=== PATIENT | female | born 1965 | race African-American/Black ===

== ENCOUNTER 2016-12-04 10:06 | Emergency (ER) | payer MEDICAID ==
[~2016-12-04 10:06] MED LIST: AMLO10TA2 PO; ATOR20TA PO; CALCTAB25 PO; CLOP75TA28 PO; DOC100C PO; ERGO1CAP6 PO; FAMO-12 PO; FLUO20CA19 PO; GABA300C8 PO; HYOS0.1220 PO; KEP500T PO; LIS20T PO; MET25T PO; ONDA4TAB5 PO; POLY33504 PO; PROM25TA5 PO; TRAM50TA2 PO; ZOLP5TAB5 PO; [UNRECOGNIZED DRUG - CODE] PO
[2016-12-04] MEDS ORDERED: SODIUM CHLORIDE 0.9% 1,000 ML IV ONE (10:15)
[2016-12-04 11:34] LABS: Basophils # (auto) 0.1 uL; Eosinophils # (auto) 0.1 uL; Eosinophils % (auto) 1.6 % (0.0-7.0); Hematocrit 33.7 % (36.0-46.0); Hemoglobin 11.1 g/dL (12.2-16.2); Lymphocytes # (auto) 1.5 uL; Lymphocytes % (auto) 24.7 % (10.0-50.0); Mean Corpuscular Hemoglobin 28.1 pg (28.0-32.0); Mean Corpuscular Volume 85.1 fL (80.0-100.0); Mean Platelet Volume 9.6 fL (7.4-10.4); Monocytes # (auto) 0.5 uL; Monocytes % (auto) 8.1 % (0.0-12.0); Neutrophils % (auto) 63.6 % (37.0-80.0); Platelet Count (auto) 218 10^3/uL (140-450); Red Cell Distribution Width 13.1 % (11.6-16.0); White Blood Cell 6.2 10^3/uL (4.4-10.8)
[2016-12-04] MEDS ORDERED: MORPHINE SULF INJ 2 MG/ML SYRINGE 1ML IV ONE ×2 (11:45→15:45)
[2016-12-04] MEDS ORDERED: ONDANSETRON HCL 4 MG/2 ML VIAL IV ONE ×2 (11:45→15:45)
[2016-12-04 11:49] LABS: Albumin 3.5 g/dL (3.4-5.0); BUN/Creatinine Ratio 15.6; Bilirubin, Total 0.2 mg/dL (0.2-1.0); Calcium 9.2 mg/dL (8.5-10.1); Potassium 3.7 mmol/L (3.5-5.1); Total Protein 7.7 g/dL (6.4-8.2)
[2016-12-04 12:32] LABS: Urine Bilirubin Negative (Negative); Urine Blood Negative /uL (Negative); Urine Color Colorless (Yellow); Urine Glucose Normal (Normal); Urine Ketone Negative (Negative); Urine Nitrite Negative (Negative); Urine RBC 1 /hpf (0 - 4); Urine Squamous Epithelial Cell FEW /hpf (<5); Urine Urobilinogen Normal (Negative); Urine pH 7.5 (5.0-8.0)
[2016-12-04 15:17] VITALS: BP 136/81
[2016-12-04] MEDS ORDERED: LEVETIRACETAM INJ 500 MG in SODIUM CHL 0.9% 100 ML IV ONE (15:45)
[2016-12-04] MEDS ORDERED: MORPHINE SULFATE 4 MG/ML SYRG IV ONE (15:45)
[2016-12-04] MEDS ORDERED: PANTOPRAZOLE 40 MG TAB PO ONE (16:45)
[2016-12-04] MEDS ORDERED: LORazepam 0.5 MG TAB ONE (16:50)
[2016-12-04] MEDS ORDERED: LORazepam 0.5 MG TAB PO ONE (17:00)
== END 2016-12-04 17:47 | disposition home or self-care (01) ==
LOC: EDUNIT# 10:06 → EDBD 10:06 → ER 10:09
DX: R56.9 Unspecified convulsions (principal); E78.5 Hyperlipidemia, unspecified; I10 Essential (primary) hypertension; F12.10 Cannabis abuse, uncomplicated; Z86.73 Personal history of transient ischemic attack (TIA), and cerebral infarction without residual deficits
CPT/HCPCS: 36415; 70450; 71010; 74176; 80053; 80185; 81001; 82542; 84484; 85025; 93005; 96361; 96365; 96375; 96376; 99285; J1953; J2270; J2405; J7030

== ENCOUNTER 2017-03-05 11:03 | Inpatient (IN) | payer MEDICAID ==
[~2017-03-05] VITALS: Ht 160 cm; Wt 55.0 kg
[2017-03-05] MEDS ORDERED: SODIUM CHLORIDE 0.9% 1,000 ML IVB ONE (11:49)
[2017-03-05] MEDS ORDERED: ONDANSETRON HCL 4 MG/2 ML VIAL IV ONE ×2 (12:00→14:00)
[2017-03-05] MEDS ORDERED: MORPHINE SULF INJ 2 MG/ML SYRINGE 1ML IV ONE ×2 (12:00→14:00)
[2017-03-05 13:08] LABS: Basophils # (auto) 0 uL; Eosinophils # (auto) 0 uL; Hematocrit 34.1 % (36.0-46.0); Hemoglobin 11.2 g/dL (12.2-16.2); Lymphocytes # (auto) 0.9 uL; Lymphocytes % (auto) 5.2 % (10.0-50.0); Mean Corpuscular Hemoglobin 27.4 pg (28.0-32.0); Mean Corpuscular Hgb Conc. 32.9 g/dL (32.0-36.0); Mean Corpuscular Volume 83.5 fL (80.0-100.0); Mean Platelet Volume 9.4 fL (7.4-10.4); Monocytes # (auto) 0.4 uL; Monocytes % (auto) 2.7 % (0.0-12.0); Neutrophils # (auto) 15.3 uL; Neutrophils % (auto) 92.1 % (37.0-80.0); Platelet Count (auto) 281 10^3/uL (140-450); Red Cell Distribution Width 14.6 % (11.6-16.0); White Blood Cell 16.6 10^3/uL (4.4-10.8)
[2017-03-05 13:18] LABS: BUN/Creatinine Ratio 16.2; Calcium 9.6 mg/dL (8.5-10.1); Magnesium 2.2 mg/dL (1.6-2.6); Potassium 3.4 mmol/L (3.5-5.1)
[2017-03-05 13:21] LABS: INR 1.01 (0.9-1.15); Prothrombin Time 10.9 sec (9.37-12.3)
[2017-03-05 13:30] LABS: Albumin 4.7 g/dL (3.4-5.0); Bilirubin, Total 0.2 mg/dL (0.2-1.0); Total Protein 9.8 g/dL (6.4-8.2)
[2017-03-05 13:41] LABS: Lactic Acid w/Reflex 2.2 mmol/L (0.4-2.0)
[2017-03-05] MEDS ORDERED: ONDANSETRON HCL 4 MG/2 ML VIAL ONE (13:45)
[2017-03-05 13:55] LABS: REFLEX LACTIC ACID YES OR NO YES
[2017-03-05] MEDS ORDERED: MORPHINE SULFATE 4 MG/ML SYRG IV ONE (14:00)
[2017-03-05 14:27] LABS: Urine Bilirubin Negative (Negative); Urine Blood TRACE /uL (Negative); Urine Glucose Normal (Normal); Urine Ketone Negative (Negative); Urine Nitrite Negative (Negative); Urine RBC 5 /hpf (0 - 4); Urine Squamous Epithelial Cell FEW /hpf (<5); Urine Urobilinogen Normal (Negative)
[2017-03-05 14:28] LABS: Urine Color Straw (Yellow)
[2017-03-05] MEDS ORDERED: cefTRIAXone 1GM/50ML D5W 50 ML IV ONE (14:30)
[2017-03-05] MEDS ORDERED: ONDANSETRON HCL 4 MG/2 ML VIAL IV PRN (14:45)
[2017-03-05] MEDS ORDERED: PANTOPRAZOLE SODIUM 40 MG/10 ML VIAL IV ONE (14:45)
[2017-03-05] MEDS: SOD CHL 0.45% WITH 20MEQ KCL 1,000 ML IV SCH (14:56)
[2017-03-05] MEDS ORDERED: metroNIDAZOLE 500MG/100ML 100 ML IV ONE (15:00)
[2017-03-05] MEDS ORDERED: LISINOPRIL 10 MG TAB PO ONE (15:00)
[2017-03-05] MEDS ORDERED: LEVETIRACETAM 500 MG TAB PO ONE (15:00)
[2017-03-05] MEDS ORDERED: FLUoxetine HCL 20 MG CAP PO ONE (15:00)
[2017-03-05] MEDS ORDERED: GABAPENTIN 300 MG CAP PO ONE (15:00)
[2017-03-05] MEDS ORDERED: ASPirin 81 mg TAB PO ONE (15:00)
[2017-03-05 17:00] VITALS: BP 169/97
[2017-03-05] MEDS: MORPHINE SULF INJ 2 MG/ML SYRINGE 1ML IV PRN ×2 (17:01→21:11)
[2017-03-05] MEDS: HYDROcodone-ACET 5/325MG TAB PO PRN (18:36)
[2017-03-05] MEDS: ATORVASTATIN 20 MG TAB PO SCH (20:30)
[2017-03-05] MEDS: GABAPENTIN 300 MG CAP PO SCH (20:30)
[2017-03-05] MEDS: LEVETIRACETAM 500 MG TAB PO SCH (20:30)
[2017-03-05] MEDS: metroNIDAZOLE 500MG/100ML 100 ML IV SCH (20:31)
[2017-03-05] MEDS: METOPROLOL TARTRATE 25 MG TAB PO SCH (20:32)
[2017-03-05 22:35] VITALS: BP 160/98
[2017-03-06] MEDS: MORPHINE SULF INJ 2 MG/ML SYRINGE 1ML IV PRN ×5 (01:42→22:30)
[2017-03-06] MEDS: HYDROcodone-ACET 5/325MG TAB PO PRN ×3 (03:50→16:38)
[2017-03-06] MEDS: GABAPENTIN 300 MG CAP PO SCH ×3 (05:40→21:38)
[2017-03-06] MEDS: metroNIDAZOLE 500MG/100ML 100 ML IV SCH ×3 (05:40→21:39)
[2017-03-06] MEDS: SOD CHL 0.45% WITH 20MEQ KCL 1,000 ML IV SCH ×2 (05:40→17:52)
[2017-03-06 06:05] VITALS: BP 150/89
[2017-03-06 07:04] LABS: Basophils # (auto) 0 uL; Basophils % (auto) 0.1 % (0.0-2.0); Eosinophils # (auto) 0 uL; Eosinophils % (auto) 0.1 % (0.0-7.0); Hematocrit 35.9 % (36.0-46.0); Hemoglobin 11.9 g/dL (12.2-16.2); Lymphocytes # (auto) 1.8 uL; Lymphocytes % (auto) 13.2 % (10.0-50.0); Mean Corpuscular Hemoglobin 27.7 pg (28.0-32.0); Mean Corpuscular Hgb Conc. 33.3 g/dL (32.0-36.0); Mean Corpuscular Volume 83.3 fL (80.0-100.0); Mean Platelet Volume 10.1 fL (7.4-10.4); Monocytes # (auto) 0.5 uL; Monocytes % (auto) 3.3 % (0.0-12.0); Neutrophils # (auto) 11.5 uL; Neutrophils % (auto) 83.3 % (37.0-80.0); Platelet Count (auto) 264 10^3/uL (140-450); Red Cell Distribution Width 14.2 % (11.6-16.0); White Blood Cell 13.8 10^3/uL (4.4-10.8)
[2017-03-06 07:20] LABS: BUN/Creatinine Ratio 14.9; Potassium 3.6 mmol/L (3.5-5.1)
[2017-03-06 08:54] VITALS: BP 148/91
[2017-03-06] MEDS: PANTOPRAZOLE SODIUM 40 MG/10 ML VIAL IV SCH (10:23)
[2017-03-06] MEDS: LORazepam 2MG/ML-1ML VIAL IV PRN (10:23)
[2017-03-06] MEDS: cefTRIAXone 1GM/50ML D5W 50 ML IV SCH (10:23)
[2017-03-06] MEDS: FLUoxetine HCL 20 MG CAP PO SCH (10:24)
[2017-03-06] MEDS: LISINOPRIL 10 MG TAB PO SCH (10:24)
[2017-03-06] MEDS: METOPROLOL TARTRATE 25 MG TAB PO SCH ×2 (10:24→21:39)
[2017-03-06] MEDS: LEVETIRACETAM 500 MG TAB PO SCH ×2 (10:24→21:38)
[2017-03-06] MEDS: ASPirin 81 mg TAB PO SCH (10:25)
[2017-03-06 13:00] VITALS: BP 107/71
[2017-03-06] MEDS ORDERED: HYOSCYAMINE SULF 0.125 MG TAB PO PRN (16:00)
[2017-03-06 17:00] VITALS: BP 151/104
[2017-03-06] MEDS: ATORVASTATIN 20 MG TAB PO SCH (21:38)
[2017-03-06 21:45] VITALS: BP 116/73
[2017-03-07] MEDS: MORPHINE SULF INJ 2 MG/ML SYRINGE 1ML IV PRN ×3 (02:35→14:11)
[2017-03-07 05:17] VITALS: BP 109/65
[2017-03-07] MEDS: GABAPENTIN 300 MG CAP PO SCH ×2 (05:45→14:00)
[2017-03-07] MEDS: HYDROcodone-ACET 5/325MG TAB PO PRN (05:45)
[2017-03-07] MEDS: metroNIDAZOLE 500MG/100ML 100 ML IV SCH ×2 (05:45→14:00)
[2017-03-07] MEDS: SOD CHL 0.45% WITH 20MEQ KCL 1,000 ML IV SCH (06:56)
[2017-03-07 07:02] LABS: Basophils # (auto) 0 uL; Basophils % (auto) 0.4 % (0.0-2.0); Eosinophils # (auto) 0 uL; Eosinophils % (auto) 0.4 % (0.0-7.0); Hematocrit 32.7 % (36.0-46.0); Hemoglobin 10.8 g/dL (12.2-16.2); Lymphocytes # (auto) 3.3 uL; Lymphocytes % (auto) 36.3 % (10.0-50.0); Mean Corpuscular Hemoglobin 27.5 pg (28.0-32.0); Mean Corpuscular Hgb Conc. 33.1 g/dL (32.0-36.0); Mean Corpuscular Volume 83.2 fL (80.0-100.0); Mean Platelet Volume 10.4 fL (7.4-10.4); Monocytes # (auto) 0.6 uL; Monocytes % (auto) 6.3 % (0.0-12.0); Neutrophils # (auto) 5.2 uL; Neutrophils % (auto) 56.6 % (37.0-80.0); Platelet Count (auto) 228 10^3/uL (140-450); Red Cell Distribution Width 13.9 % (11.6-16.0); White Blood Cell 9.2 10^3/uL (4.4-10.8)
[2017-03-07 07:36] LABS: Albumin 3.8 g/dL (3.4-5.0); BUN/Creatinine Ratio 18.4; Bilirubin, Total 0.5 mg/dL (0.2-1.0); Calcium 8.5 mg/dL (8.5-10.1); Potassium 3.6 mmol/L (3.5-5.1)
[2017-03-07] MEDS: LORazepam 2MG/ML-1ML VIAL IV PRN (08:02)
[2017-03-07 09:00] VITALS: BP 93/61
[2017-03-07] MEDS: LISINOPRIL 10 MG TAB PO SCH (10:00)
[2017-03-07] MEDS: METOPROLOL TARTRATE 25 MG TAB PO SCH (10:00)
[2017-03-07] MEDS: LEVETIRACETAM 500 MG TAB PO SCH (10:09)
[2017-03-07] MEDS: FLUoxetine HCL 20 MG CAP PO SCH (10:09)
[2017-03-07] MEDS: cefTRIAXone 1GM/50ML D5W 50 ML IV SCH (10:10)
[2017-03-07] MEDS: ASPirin 81 mg TAB PO SCH (10:11)
[2017-03-07] MEDS: PANTOPRAZOLE SODIUM 40 MG/10 ML VIAL IV SCH (10:11)
[2017-03-07 14:30] VITALS: BP 93/61
== END 2017-03-07 15:30 | disposition home or self-care (01) | DRG 248 ==
LOC: EDBD 11:03 → ER 11:05 → OVERFLOW 11:06 → TELE-E-ADS 15:44 → EAST 16:49
PROVIDERS: ADMIT Internal Medicine; ATTEND Internal Medicine
DX: A04.9 Bacterial intestinal infection, unspecified (principal); E87.0 Hyperosmolality and hypernatremia; M32.9 Systemic lupus erythematosus, unspecified; I69.351 Hemiplegia and hemiparesis following cerebral infarction affecting right dominant side; N30.00 Acute cystitis without hematuria; F41.9 Anxiety disorder, unspecified; E78.5 Hyperlipidemia, unspecified; F32.9 Major depressive disorder, single episode, unspecified; G89.4 Chronic pain syndrome; F12.90 Cannabis use, unspecified, uncomplicated; D64.9 Anemia, unspecified; I10 Essential (primary) hypertension; Z82.3 Family history of stroke; Z82.49 Family history of ischemic heart disease and other diseases of the circulatory system; Z83.3 Family history of diabetes mellitus; Z79.899 Other long term (current) drug therapy
CPT/HCPCS: 36415; 51702; 71010; 74176; 80048; 80053; 81001; 82150; 83605; 83690; 83735; 85025; 85610; 85730; 87040; 87081; 93005; 94761; 96361; 96365; 96367; 96375; 96376; C9113; J0696; J2405; J3490

== ENCOUNTER 2017-12-20 17:22 | Emergency (ER) | payer MEDICAID ==
[~2017-12-20] VITALS: Ht 167.6 cm; Wt 59.0 kg
[~2017-12-20 17:22] MED LIST changes: +GABA300C10 PO; -GABA300C8 PO; -HYOS0.1220 PO; -[UNRECOGNIZED DRUG - CODE] PO
[2017-12-20 18:45] LABS: Basophils # (auto) 0.1 uL; Eosinophils # (auto) 0 uL; Hemoglobin 11.9 g/dL (12.2-16.2); Monocytes # (auto) 0.3 uL; Red Cell Distribution Width 13.8 % (11.8-14.3)
[2017-12-20 19:01] LABS: Albumin 3.8 g/dL (3.4-5.0); BUN/Creatinine Ratio 10.8; Calcium 8.8 mg/dL (8.5-10.1); Potassium 3.4 mmol/L (3.5-5.1)
[2017-12-20 19:02] LABS: Basophils % (auto) 1.2 % (0.0-2.0); Eosinophils % (auto) 0.7 % (0.0-7.0); Hematocrit 35.9 % (36.0-46.0); Lymphocytes # (auto) 1.8 uL; Lymphocytes % (auto) 39.5 % (10.0-50.0); Mean Corpuscular Hemoglobin 27.8 pg (28.0-32.0); Mean Corpuscular Hgb Conc. 33.2 g/dL (32.0-36.0); Mean Corpuscular Volume 83.7 fL (80.0-100.0); Monocytes % (auto) 5.9 % (0.0-12.0); Neutrophils # (auto) 2.3 uL; Neutrophils % (auto) 52.7 % (37.0-80.0); Nucleated Red Blood Cells % 0.6 %; Platelet Count (auto) 208 10^3/uL (140-450); Red Blood Cells 4.29 10^6/uL (4.0-5.20); White Blood Cell 4.4 10^3/uL (4.4-10.8)
[2017-12-20 19:04] LABS: Bilirubin, Total 0.2 mg/dL (0.2-1.0); Total Protein 8.5 g/dL (6.4-8.2)
[2017-12-20] MEDS ORDERED: SODIUM CHLORIDE 0.9% 1,000 ML IV ONE (19:45)
[2017-12-20] MEDS ORDERED: ONDANSETRON HCL 4 MG/2 ML VIAL IV ONE (19:45)
[2017-12-20] MEDS ORDERED: MORPHINE SULFATE 10 MG/ML INJ 1ML SDV IV ONE (19:45)
[2017-12-20 22:49] VITALS: BP 135/94
[2018-03-10] MEDS ORDERED: MORP30TA PO (09:56)
[2018-03-10] MEDS ORDERED: CLOP75TA41 PO (09:56)
[2018-03-10] MEDS ORDERED: PROM25TA5 PO (09:56)
[2018-03-10] MEDS ORDERED: GABA300C10 PO (09:56)
[2018-03-10] MEDS ORDERED: ATOR40TA52 PO (09:56)
[2018-03-10] MEDS ORDERED: KEP500T PO (09:56)
[2018-03-10] MEDS ORDERED: FLUO20CA19 PO (09:56)
[2018-03-10] MEDS ORDERED: AMLO5TAB2 PO (09:56)
== END 2017-12-20 23:41 | disposition home or self-care (01) ==
LOC: ER 17:22 → EDBD 17:22 → ER 23:41
DX: K29.70 Gastritis, unspecified, without bleeding (principal); I10 Essential (primary) hypertension; E78.00 Pure hypercholesterolemia, unspecified; F12.10 Cannabis abuse, uncomplicated; Z79.899 Other long term (current) drug therapy
CPT/HCPCS: 36415; 74176; 80053; 82150; 83690; 85025; 93005; 96361; 96374; 96375; 99285; J2270; J2405; J7030

== ENCOUNTER 2018-05-02 20:10 | Inpatient (IN) | payer MEDICAID ==
[~2018-05-02] VITALS: Ht 175.3 cm; Wt 62.1 kg
[~2018-05-02 20:10] MED LIST changes: -AMLO10TA2 PO; +AMLO5TAB2 PO; -ATOR20TA PO; +ATOR40TA52 PO; -CALCTAB25 PO; -CLOP75TA28 PO; +CLOP75TA41 PO; -DOC100C PO; -ERGO1CAP6 PO; -FAMO-12 PO; -LIS20T PO; -MET25T PO; +MORP30TA PO; -ONDA4TAB5 PO; -POLY33504 PO; -TRAM50TA2 PO; -ZOLP5TAB5 PO
[2018-05-02] MEDS ORDERED: KETOROLAC TROMETH 30 MG/ML 1ML VIAL IV ONE (21:00)
[2018-05-02] MEDS ORDERED: ONDANSETRON HCL 4 MG/2 ML VIAL ONE (21:00)
[2018-05-02] MEDS ORDERED: ONDANSETRON HCL 4 MG/2 ML VIAL IV ONE (21:00)
[2018-05-02] MEDS ORDERED: SODIUM CHLORIDE 0.9% 1,000 ML IV ONE (21:15)
[2018-05-02 21:16] LABS: Basophils # (auto) 0.1 uL; Basophils % (auto) 0.7 % (0.0-2.0); Eosinophils # (auto) 0.1 uL; Eosinophils % (auto) 0.7 % (0.0-7.0); Hematocrit 37.6 % (36.0-46.0); Hemoglobin 12.6 g/dL (12.2-16.2); Lymphocytes # (auto) 3.2 uL; Lymphocytes % (auto) 17.4 % (10.0-50.0); Mean Corpuscular Hgb Conc. 33.4 g/dL (32.0-36.0); Mean Corpuscular Volume 83.8 fL (80.0-100.0); Monocytes # (auto) 0.7 uL; Monocytes % (auto) 3.6 % (0.0-12.0); Neutrophils # (auto) 14.4 uL; Neutrophils % (auto) 77.6 % (37.0-80.0); Platelet Count (auto) 255 10^3/uL (140-450); Red Blood Cells 4.49 10^6/uL (4.0-5.20); White Blood Cell 18.6 10^3/uL (4.4-10.8)
[2018-05-02 21:31] LABS: Albumin 4.1 g/dL (3.4-5.0); BUN/Creatinine Ratio 10.2; Calcium 8.9 mg/dL (8.5-10.1); Potassium 3.7 mmol/L (3.5-5.1)
[2018-05-02 21:33] LABS: Bilirubin, Total 0.2 mg/dL (0.2-1.0); Total Protein 9.2 g/dL (6.4-8.2)
[2018-05-02] MEDS ORDERED: LORazepam 0.5 MG TAB PO ONE (21:45)
[2018-05-02] MEDS ORDERED: LORazepam 2MG/ML-1ML VIAL IV ONE (22:00)
[2018-05-02] MEDS ORDERED: LEVE500T22 PO (22:26)
[2018-05-02] MEDS ORDERED: CLOP75TA41 PO (22:26)
[2018-05-02] MEDS ORDERED: AMLO5TAB2 PO (22:26)
[2018-05-02] MEDS ORDERED: CEPH250C2 PO (22:26)
[2018-05-02 22:51] LABS: Urine Bacteria NONE SEEN /hpf (None Seen); Urine Blood Negative /uL (Negative); Urine Specific Gravity 1.009 (1.001-1.035); Urine WBC 1 /hpf (0 - 5)
[2018-05-02] MEDS ORDERED: metroNIDAZOLE 500MG/100ML 100 ML IV ONE (23:30)
[2018-05-02] MEDS ORDERED: CIPROFLOXACIN 400MG/200ML 200 ML IV ONE (23:30)
[2018-05-03] VITALS (9 sets, daily range): BP systolic 140–166; BP diastolic 0–105
[2018-05-03] MEDS ORDERED: LORazepam 2MG/ML-1ML VIAL IV ONE (01:00)
[2018-05-03] MEDS ORDERED: ACETAMINOPHEN 500 MG TAB PO PRN (02:15)
[2018-05-03] MEDS: HYDROcodone-ACET 5/325MG TAB PO PRN ×3 (03:44→18:42)
[2018-05-03] MEDS: GABAPENTIN 300 MG CAP PO SCH ×3 (05:53→21:43)
[2018-05-03] MEDS: MORPHINE SULF INJ 2 MG/ML SYRINGE 1ML IV PRN ×2 (06:03→09:44)
[2018-05-03] MEDS: ONDANSETRON HCL 4 MG/2 ML VIAL IV PRN ×2 (07:55→21:23)
[2018-05-03 08:31] LABS: Basophils # (auto) 0 uL; Basophils % (auto) 0.2 % (0.0-2.0); Eosinophils # (auto) 0 uL; Hematocrit 37.4 % (36.0-46.0); Hemoglobin 12.5 g/dL (12.2-16.2); Lymphocytes # (auto) 1.3 uL; Lymphocytes % (auto) 10.8 % (10.0-50.0); Mean Corpuscular Hgb Conc. 33.4 g/dL (32.0-36.0); Mean Corpuscular Volume 83.9 fL (80.0-100.0); Monocytes # (auto) 0.2 uL; Monocytes % (auto) 1.6 % (0.0-12.0); Neutrophils # (auto) 10.3 uL; Neutrophils % (auto) 87.4 % (37.0-80.0); Nucleated Red Blood Cells % 0.1 %; Platelet Count (auto) 215 10^3/uL (140-450); Red Blood Cells 4.45 10^6/uL (4.0-5.20); Red Cell Distribution Width 13.9 % (11.8-14.3); White Blood Cell 11.8 10^3/uL (4.4-10.8)
[2018-05-03 09:02] LABS: Albumin 4.5 g/dL (3.4-5.0); BUN/Creatinine Ratio 10.1; Bilirubin, Total 0.3 mg/dL (0.2-1.0); Calcium 9.1 mg/dL (8.5-10.1); Potassium 3.3 mmol/L (3.5-5.1); Total Protein 8.9 g/dL (6.4-8.2)
[2018-05-03] MEDS: amLODIPine BESYLATE 5 MG TAB PO SCH (09:45)
[2018-05-03] MEDS: ASPirin 81 mg TAB PO SCH (11:04)
[2018-05-03] MEDS: LEVETIRACETAM 500 MG/5ML ORAL SOLN UD PO SCH ×2 (11:05→21:43)
[2018-05-03] MEDS: HYDROmorphone HCL 2 MG/ML VL IV PRN ×3 (13:30→21:23)
[2018-05-03] MEDS: metroNIDAZOLE 500 MG TAB PO SCH ×2 (14:16→21:43)
[2018-05-03] MEDS ORDERED: CARISOPRODOL 350 MG TAB PO ONE (16:15)
[2018-05-03] MEDS: ATORVASTATIN 20 MG TAB PO SCH (21:43)
[2018-05-04] MEDS: HYDROcodone-ACET 5/325MG TAB PO PRN ×3 (00:13→19:38)
[2018-05-04] MEDS: HYDROmorphone HCL 2 MG/ML VL IV PRN ×5 (04:50→21:26)
[2018-05-04 05:03] VITALS: BP 141/103
[2018-05-04] MEDS: GABAPENTIN 300 MG CAP PO SCH ×3 (05:53→21:26)
[2018-05-04] MEDS: metroNIDAZOLE 500 MG TAB PO SCH (05:53)
[2018-05-04 05:56] LABS: Basophils # (auto) 0.1 uL; Basophils % (auto) 0.4 % (0.0-2.0); Eosinophils # (auto) 0 uL; Eosinophils % (auto) 0.1 % (0.0-7.0); Hemoglobin 14.5 g/dL (12.2-16.2); Lymphocytes # (auto) 3.5 uL; Lymphocytes % (auto) 21.2 % (10.0-50.0); Mean Corpuscular Hemoglobin 28.1 pg (28.0-32.0); Mean Corpuscular Hgb Conc. 33.8 g/dL (32.0-36.0); Mean Corpuscular Volume 83.2 fL (80.0-100.0); Monocytes # (auto) 0.9 uL; Monocytes % (auto) 5.4 % (0.0-12.0); Neutrophils # (auto) 11.9 uL; Neutrophils % (auto) 72.9 % (37.0-80.0); Nucleated Red Blood Cells % 0.6 %; Platelet Count (auto) 276 10^3/uL (140-450); Red Blood Cells 5.17 10^6/uL (4.0-5.20); White Blood Cell 16.4 10^3/uL (4.4-10.8)
[2018-05-04 06:20] LABS: BUN/Creatinine Ratio 13.1; Calcium 9.6 mg/dL (8.5-10.1)
[2018-05-04 06:24] LABS: Potassium 2.8 mmol/L (3.5-5.1)
[2018-05-04] MEDS: ONDANSETRON HCL 4 MG/2 ML VIAL IV PRN ×4 (09:09→21:26)
[2018-05-04] MEDS: LEVETIRACETAM 500 MG/5ML ORAL SOLN UD PO SCH ×2 (09:09→21:25)
[2018-05-04] MEDS: ASPirin 81 mg TAB PO SCH (09:10)
[2018-05-04] MEDS: amLODIPine BESYLATE 5 MG TAB PO SCH (09:14)
[2018-05-04 12:27] VITALS: BP 116/85
[2018-05-04] MEDS ORDERED: POTASSIUM CHL 20 Meq TABLET PO ONE (12:30)
[2018-05-04 17:44] VITALS: BP 107/80
[2018-05-04] MEDS: POTASSIUM CHL 20 Meq TABLET PO SCH (21:25)
[2018-05-04] MEDS: ATORVASTATIN 20 MG TAB PO SCH (21:25)
[2018-05-04 22:00] VITALS: BP 150/103
[2018-05-05] MEDS: HYDROmorphone HCL 2 MG/ML VL IV PRN ×6 (01:33→21:13)
[2018-05-05] MEDS: ONDANSETRON HCL 4 MG/2 ML VIAL IV PRN ×4 (01:33→21:13)
[2018-05-05] MEDS: GABAPENTIN 300 MG CAP PO SCH ×3 (05:25→21:10)
[2018-05-05 05:46] VITALS: BP 109/79
[2018-05-05 06:02] LABS: Basophils # (auto) 0.1 uL; Basophils % (auto) 0.6 % (0.0-2.0); Eosinophils # (auto) 0 uL; Eosinophils % (auto) 0.2 % (0.0-7.0); Hematocrit 38.4 % (36.0-46.0); Hemoglobin 12.8 g/dL (12.2-16.2); Lymphocytes # (auto) 4.7 uL; Lymphocytes % (auto) 36.2 % (10.0-50.0); Mean Corpuscular Hemoglobin 27.9 pg (28.0-32.0); Mean Corpuscular Hgb Conc. 33.2 g/dL (32.0-36.0); Mean Corpuscular Volume 84.1 fL (80.0-100.0); Monocytes # (auto) 0.6 uL; Monocytes % (auto) 4.5 % (0.0-12.0); Neutrophils # (auto) 7.6 uL; Neutrophils % (auto) 58.5 % (37.0-80.0); Nucleated Red Blood Cells % 0.1 %; Platelet Count (auto) 221 10^3/uL (140-450); Red Blood Cells 4.57 10^6/uL (4.0-5.20); Red Cell Distribution Width 13.8 % (11.8-14.3); White Blood Cell 12.9 10^3/uL (4.4-10.8)
[2018-05-05 06:21] LABS: Calcium 9.1 mg/dL (8.5-10.1); Potassium 3.7 mmol/L (3.5-5.1)
[2018-05-05 06:25] LABS: BUN/Creatinine Ratio 14.5
[2018-05-05 08:00] VITALS: BP 96/63
[2018-05-05 08:53] VITALS: BP 96/63
[2018-05-05] MEDS: ASPirin 81 mg TAB PO SCH (09:43)
[2018-05-05] MEDS: LEVETIRACETAM 500 MG/5ML ORAL SOLN UD PO SCH ×2 (09:44→21:09)
[2018-05-05] MEDS: POTASSIUM CHL 20 Meq TABLET PO SCH ×2 (09:44→21:10)
[2018-05-05] MEDS: amLODIPine BESYLATE 5 MG TAB PO SCH (09:45)
[2018-05-05] MEDS: LEVOFLOXACIN 500MG 100 ML IV SCH (11:31)
[2018-05-05] MEDS: SODIUM CHLORIDE 0.9% 1,000 ML IV SCH ×2 (11:31→18:00)
[2018-05-05] MEDS: HYDROcodone-ACET 5/325MG TAB PO PRN ×3 (12:51→22:56)
[2018-05-05 13:00] VITALS: BP 134/89
[2018-05-05] MEDS: LORazepam 2MG/ML-1ML VIAL IV PRN (16:03)
[2018-05-05 17:00] VITALS: BP 115/80
[2018-05-05] MEDS: ATORVASTATIN 20 MG TAB PO SCH (21:10)
[2018-05-05 21:36] VITALS: BP 108/76
[2018-05-06] MEDS: SODIUM CHLORIDE 0.9% 1,000 ML IV SCH (01:02)
[2018-05-06] MEDS: ONDANSETRON HCL 4 MG/2 ML VIAL IV PRN ×2 (01:02→05:00)
[2018-05-06] MEDS: HYDROmorphone HCL 2 MG/ML VL IV PRN ×4 (01:02→14:00)
[2018-05-06] MEDS: HYDROcodone-ACET 5/325MG TAB PO PRN ×6 (03:11→23:39)
[2018-05-06 05:00] VITALS: BP 103/76
[2018-05-06] MEDS: GABAPENTIN 300 MG CAP PO SCH ×3 (05:00→21:25)
[2018-05-06 05:38] LABS: Basophils # (auto) 0.1 uL; Eosinophils # (auto) 0.1 uL; Hematocrit 34.1 % (36.0-46.0); Hemoglobin 11.3 g/dL (12.2-16.2); Lymphocytes # (auto) 3.4 uL; Lymphocytes % (auto) 46.2 % (10.0-50.0); Mean Corpuscular Hemoglobin 28.1 pg (28.0-32.0); Mean Corpuscular Hgb Conc. 33.3 g/dL (32.0-36.0); Mean Corpuscular Volume 84.4 fL (80.0-100.0); Monocytes # (auto) 0.5 uL; Monocytes % (auto) 7.3 % (0.0-12.0); Neutrophils # (auto) 3.2 uL; Neutrophils % (auto) 43.5 % (37.0-80.0); Nucleated Red Blood Cells % 0.2 %; Platelet Count (auto) 180 10^3/uL (140-450); Red Blood Cells 4.04 10^6/uL (4.0-5.20); Red Cell Distribution Width 13.8 % (11.8-14.3); White Blood Cell 7.3 10^3/uL (4.4-10.8)
[2018-05-06 06:24] LABS: BUN/Creatinine Ratio 18.8; Calcium 8.2 mg/dL (8.5-10.1); Potassium 4.3 mmol/L (3.5-5.1)
[2018-05-06 07:45] VITALS: BP 109/81
[2018-05-06 09:00] VITALS: BP 109/81
[2018-05-06] MEDS: LEVOFLOXACIN 500MG 100 ML IV SCH (10:02)
[2018-05-06] MEDS: ASPirin 81 mg TAB PO SCH (10:03)
[2018-05-06] MEDS: LEVETIRACETAM 500 MG/5ML ORAL SOLN UD PO SCH ×2 (10:03→21:25)
[2018-05-06] MEDS: amLODIPine BESYLATE 5 MG TAB PO SCH (10:07)
[2018-05-06] MEDS: SOD CHL 0.45% 1,000 ML IV SCH ×2 (11:54→20:36)
[2018-05-06 12:24] VITALS: BP 116/75
[2018-05-06 17:00] VITALS: BP 110/78
[2018-05-06] MEDS: MORPHINE SULF INJ 2 MG/ML SYRINGE 1ML IV PRN ×2 (18:01→21:25)
[2018-05-06] MEDS: LORazepam 2MG/ML-1ML VIAL IV PRN (19:51)
[2018-05-06 20:00] VITALS: BP 114/75
[2018-05-06] MEDS ORDERED: LORazepam 0.5 MG TAB PO PRN (21:15)
[2018-05-06] MEDS: ATORVASTATIN 20 MG TAB PO SCH (21:25)
[2018-05-07] MEDS: MORPHINE SULF INJ 2 MG/ML SYRINGE 1ML IV PRN ×3 (01:09→09:27)
[2018-05-07] MEDS: HYDROcodone-ACET 5/325MG TAB PO PRN ×2 (03:33→07:58)
[2018-05-07 04:48] VITALS: BP 117/87
[2018-05-07] MEDS: GABAPENTIN 300 MG CAP PO SCH (05:02)
[2018-05-07 05:54] LABS: Basophils # (auto) 0.1 uL; Basophils % (auto) 1.3 % (0.0-2.0); Eosinophils # (auto) 0.2 uL; Eosinophils % (auto) 4.1 % (0.0-7.0); Hematocrit 33.1 % (36.0-46.0); Hemoglobin 11.1 g/dL (12.2-16.2); Lymphocytes # (auto) 2.6 uL; Lymphocytes % (auto) 45.2 % (10.0-50.0); Mean Corpuscular Hemoglobin 28.8 pg (28.0-32.0); Mean Corpuscular Hgb Conc. 33.4 g/dL (32.0-36.0); Mean Corpuscular Volume 86.2 fL (80.0-100.0); Monocytes # (auto) 0.5 uL; Neutrophils # (auto) 2.4 uL; Neutrophils % (auto) 41.4 % (37.0-80.0); Nucleated Red Blood Cells % 0.2 %; Platelet Count (auto) 178 10^3/uL (140-450); Red Blood Cells 3.84 10^6/uL (4.0-5.20); Red Cell Distribution Width 13.9 % (11.8-14.3); White Blood Cell 5.8 10^3/uL (4.4-10.8)
[2018-05-07 06:16] LABS: BUN/Creatinine Ratio 12.9; Calcium 8.6 mg/dL (8.5-10.1)
[2018-05-07] MEDS: SOD CHL 0.45% 1,000 ML IV SCH (06:19)
[2018-05-07] MEDS: LEVOFLOXACIN 500MG 100 ML IV SCH (07:58)
[2018-05-07] MEDS: ASPirin 81 mg TAB PO SCH (07:59)
[2018-05-07 09:14] VITALS: BP 115/74
[2018-05-07] MEDS: amLODIPine BESYLATE 5 MG TAB PO SCH (10:00)
[2018-05-07] MEDS: LEVETIRACETAM 500 MG/5ML ORAL SOLN UD PO SCH (11:02)
[2018-05-07 11:23] VITALS: BP 115/74
== END 2018-05-07 12:36 | disposition home or self-care (01) | DRG 254 ==
LOC: EDBD 20:10 → ER 20:17 → TELE 20:18 → TELE-EAST 05-03 03:00
PROVIDERS: ADMIT Nurse Practitioner Family; ATTEND Internal Medicine
DX: I88.0 Nonspecific mesenteric lymphadenitis (principal); N17.0 Acute kidney failure with tubular necrosis; K65.4 Sclerosing mesenteritis; G40.909 Epilepsy, unspecified, not intractable, without status epilepticus; E87.6 Hypokalemia; I12.9 Hypertensive chronic kidney disease with stage 1 through stage 4 chronic kidney disease, or unspecified chronic kidney disease; K29.70 Gastritis, unspecified, without bleeding; E78.5 Hyperlipidemia, unspecified; F17.210 Nicotine dependence, cigarettes, uncomplicated; F31.9 Bipolar disorder, unspecified; F41.9 Anxiety disorder, unspecified; K59.00 Constipation, unspecified; N18.9 Chronic kidney disease, unspecified; E78.00 Pure hypercholesterolemia, unspecified; G89.4 Chronic pain syndrome; I25.10 Atherosclerotic heart disease of native coronary artery without angina pectoris; I25.2 Old myocardial infarction; I69.351 Hemiplegia and hemiparesis following cerebral infarction affecting right dominant side; Z79.82 Long term (current) use of aspirin; Z79.899 Other long term (current) drug therapy; Z80.3 Family history of malignant neoplasm of breast; Z82.3 Family history of stroke; Z82.49 Family history of ischemic heart disease and other diseases of the circulatory system; Z83.3 Family history of diabetes mellitus; Z87.442 Personal history of urinary calculi; Z87.440 Personal history of urinary (tract) infections
CPT/HCPCS: 36415; 70450; 74176; 80048; 80053; 81001; 82270; 82542; 83036; 83690; 85025; 87493; 93005; 95819; 96361; 96365; 96375; J1885; J1956; J2405; J3490

== ENCOUNTER 2018-11-28 10:39 | Emergency (ER) | payer MEDICAID ==
[~2018-11-28] VITALS: Ht 167.6 cm; Wt 68.0 kg
[~2018-11-28 10:39] MED LIST changes: +AMLO5TAB13 PO; -AMLO5TAB2 PO; +CEPH250C2 PO; +LEVE500T22 PO
[2018-11-28] MEDS ORDERED: ONDANSETRON HCL 4 MG/2 ML VIAL IV ONE (11:00)
[2018-11-28] MEDS ORDERED: LORazepam 2MG/ML-1ML VIAL IV ONE (11:00)
[2018-11-28] MEDS ORDERED: LEVETIRACETAM INJ 1,000 MG in D5W 5% 100 ML IV ONE (11:00)
[2018-11-28 11:47] LABS: Basophils # (auto) 0.1 uL; Eosinophils # (auto) 0.1 uL; Eosinophils % (auto) 1.4 % (0.0-7.0); Hematocrit 38.7 % (36.0-46.0); Hemoglobin 12.7 g/dL (12.2-16.2); Lymphocytes # (auto) 2.1 uL; Lymphocytes % (auto) 34.6 % (10.0-50.0); Mean Corpuscular Hemoglobin 28.4 pg (28.0-32.0); Mean Corpuscular Hgb Conc. 32.8 g/dL (32.0-36.0); Mean Corpuscular Volume 86.5 fL (80.0-100.0); Monocytes # (auto) 0.4 uL; Monocytes % (auto) 6.9 % (0.0-12.0); Neutrophils # (auto) 3.5 uL; Neutrophils % (auto) 56.1 % (37.0-80.0); Nucleated Red Blood Cells % 0.1 %; Platelet Count (auto) 224 10^3/uL (140-450); Red Blood Cells 4.48 10^6/uL (4.0-5.20); Red Cell Distribution Width 13.4 % (11.8-14.3); White Blood Cell 6.2 10^3/uL (4.4-10.8)
[2018-11-28 12:08] LABS: Albumin 4.2 g/dL (3.4-5.0); BUN/Creatinine Ratio 12.3; Calcium 8.7 mg/dL (8.5-10.1); Potassium 3.3 mmol/L (3.5-5.1)
[2018-11-28 12:10] LABS: Bilirubin, Total 0.4 mg/dL (0.2-1.0); Total Protein 8.6 g/dL (6.4-8.2)
[2018-11-28] MEDS ORDERED: MORPHINE SULFATE 4 MG/ML SYR/VIAL IV ONE (12:30)
[2018-11-28 15:56] VITALS: BP 141/87
== END 2018-11-28 16:27 | disposition home or self-care (01) ==
LOC: ER 10:39 → EDBD 10:39 → ER 16:27
DX: R56.9 Unspecified convulsions (principal); I12.9 Hypertensive chronic kidney disease with stage 1 through stage 4 chronic kidney disease, or unspecified chronic kidney disease; N18.9 Chronic kidney disease, unspecified; F41.9 Anxiety disorder, unspecified; F32.9 Major depressive disorder, single episode, unspecified; E78.5 Hyperlipidemia, unspecified; I25.2 Old myocardial infarction; F17.210 Nicotine dependence, cigarettes, uncomplicated; Z86.73 Personal history of transient ischemic attack (TIA), and cerebral infarction without residual deficits; Z87.440 Personal history of urinary (tract) infections; Z98.890 Other specified postprocedural states
CPT/HCPCS: 36415; 80053; 85025; 93005; 94761; 96365; 96375; 99284; J1953; J2060; J2270; J2405; J7060

== ENCOUNTER 2019-01-28 00:43 | Inpatient (IN) | payer MEDICAID | END 2019-01-31 14:00 | disposition home or self-care (01) | LOC: ER 00:43 → TELE 06:00 → TELE-WESTW 14:54 | DX: G40.909 Epilepsy, unspecified, not intractable, without status epilepticus (principal); G81.91 Hemiplegia, unspecified affecting right dominant side; K52.9 Noninfective gastroenteritis and colitis, unspecified; Z86.73 Personal history of transient ischemic attack (TIA), and cerebral infarction without residual deficits; I16.0 Hypertensive urgency ==

== ENCOUNTER 2019-06-10 07:54 | Inpatient (IN) | payer MEDICAID ==
[~2019-06-10] VITALS: Ht 170.2 cm; Wt 68.5 kg
[~2019-06-10 07:54] MED LIST changes: -LEVE500T22 PO
[2019-06-10] MEDS ORDERED: MORPHINE SULFATE 4 MG/ML SYR/VIAL IV ONE ×2 (10:00→13:45)
[2019-06-10] MEDS ORDERED: PROMETHAZINE HCL 25 MG/ML 1ML IV ONE (10:00)
[2019-06-10] MEDS ORDERED: SODIUM CHLORIDE 0.9% 500 ML IVB ONE (10:15)
[2019-06-10] MEDS ORDERED: SODIUM CHLORIDE 0.9% 1,000 ML IV ONE (10:15)
[2019-06-10 10:39] LABS: Basophils # (auto) 0.1 uL; Eosinophils # (auto) 0 uL; Eosinophils % (auto) 0.3 % (0.0-7.0); Hemoglobin 11.9 g/dL (12.2-16.2); Lymphocytes % (auto) 16.4 % (10.0-50.0); Mean Corpuscular Hemoglobin 27.4 pg (28.0-32.0); Mean Corpuscular Hgb Conc. 32.2 g/dL (32.0-36.0); Mean Corpuscular Volume 85.1 fL (80.0-100.0); Monocytes # (auto) 0.6 uL; Monocytes % (auto) 4.5 % (0.0-12.0); Neutrophils # (auto) 9.6 uL; Neutrophils % (auto) 77.8 % (37.0-80.0); Platelet Count (auto) 256 10^3/uL (140-450); Red Blood Cells 4.35 10^6/uL (4.0-5.20); Red Cell Distribution Width 14.6 % (11.8-14.3); White Blood Cell 12.3 10^3/uL (4.4-10.8)
[2019-06-10 11:23] LABS: Urine Bacteria FEW /hpf (None Seen); Urine Blood TRACE /uL (Negative); Urine Mucus FEW (None Seen); Urine Specific Gravity 1.011 (1.001-1.035); Urine WBC 32 /hpf (0 - 5)
[2019-06-10 12:06] LABS: Alanine Aminotransferase 19 U/L (13-56); Albumin 4.3 g/dL (3.4-5.0); Amylase 87 U/L (25-115); Anion Gap 10 (5-15); Blood Urea Nitrogen 9 mg/dL (7-18); Calcium 8.9 mg/dL (8.5-10.1); Carbon Dioxide 21 mmol/L (21-32); Chloride 113 mmol/L (98-107); Glucose 177 mg/dL (74-106); Lipase 66 U/L (73-393); Magnesium 2.3 mg/dL (1.6-2.6); Potassium 3.6 mmol/L (3.5-5.1); Sodium 144 mmol/L (136-145)
[2019-06-10 12:12] LABS: Alkaline Phosphatase 176 U/L (45-117); Aspartate Aminotransferase 17 U/L (15-37); BUN/Creatinine Ratio 11.5; Bilirubin, Total 0.3 mg/dL (0.2-1.0); GFR African American 99 mL/min; GFR Non-African American 81 mL/min; Total Protein 8.5 g/dL (6.4-8.2)
[2019-06-10] MEDS ORDERED: cefTRIAXone 1GM/50ML D5W 50 ML IV ONE (12:15)
[2019-06-10] MEDS ORDERED: ONDANSETRON HCL 4 MG/2 ML VIAL IV ONE (12:15)
[2019-06-10] MEDS ORDERED: ACETAMINOPHEN 500 MG TAB PO PRN (14:15)
[2019-06-10] MEDS ORDERED: MORPHINE SULF INJ 2 MG/ML SYRINGE 1ML IV PRN (14:15)
[2019-06-10] MEDS ORDERED: NITROGLYCERIN 0.4 MG SL TAB SL PRN (14:15)
[2019-06-10] MEDS: SODIUM CHLORIDE 0.9% 1,000 ML IV SCH (14:23)
[2019-06-10] MEDS: GABAPENTIN 300 MG CAP PO SCH ×2 (14:30→21:45)
[2019-06-10 21:05] VITALS: BP 116/69
--- NOTE | 2019-06-10 21:05 | NUR ---
PATIENT ARRIVED FROM EMERGENCY DEPARTMENT AT THIS TIME VIA GURNEY. SHE HAD A ORTEGA IN PLACE FOR IMMOBILITY. HAS NO SKIN ISSUES AT THIS TIME. SHE HAS A MIDLINE IN THE LA AND 20G TO THE LAC. SHE IS BEDBOUND AND USES A WHEELCHAIR AT HOME SHE STATES. SHE HAS RIGHT SIDED DEFICITS FROM A PREVIOUS STROKE. SHE IS AO X3 SHE COULD NOT STATE THE REASON SHE WAS HERE. ORIENTED HER TO THE ROOM AND UNIT POLICIES. SIDE RAILS WERE RAISED X2 AND BED LOCKED IN LOWEST POSITION. WILL CONTINUE TO MONITOR.
[2019-06-10] MEDS: HYDROmorphone HCL 2 MG/ML VL IV PRN (21:11)
[2019-06-10] MEDS: ATORVASTATIN 20 MG TAB PO SCH (21:45)
[2019-06-10] MEDS: LEVETIRACETAM 500 MG TAB PO SCH (21:46)
[2019-06-10] MEDS: DOCUSATE SOD 100 MG CAP PO SCH (21:46)
[2019-06-11] MEDS: HYDROmorphone HCL 2 MG/ML VL IV PRN ×7 (03:11→22:36)
[2019-06-11] MEDS: HYDROcodone-ACET 5/325MG TAB PO PRN ×2 (04:53→11:19)
[2019-06-11 05:00] VITALS: BP 145/90
--- NOTE | 2019-06-11 05:16 | NUR ---
PAGED HOSPITALIST FOR PATIENT COMPLAINING OF 10/10 ABDOMINAL PAIN DESPITE NORCO BEING GIVEN AND DILAUDID IS NOT DUE YET.
[2019-06-11 05:20] LABS: Basophils # (auto) 0.4 uL; Basophils % (auto) 3.7 % (0.0-2.0); Eosinophils # (auto) 0 uL; Eosinophils % (auto) 0.2 % (0.0-7.0); Hematocrit 32.9 % (36.0-46.0); Lymphocytes # (auto) 1.3 uL; Lymphocytes % (auto) 13.2 % (10.0-50.0); Mean Corpuscular Hemoglobin 28.5 pg (28.0-32.0); Mean Corpuscular Hgb Conc. 33.6 g/dL (32.0-36.0); Mean Corpuscular Volume 84.8 fL (80.0-100.0); Monocytes # (auto) 0.4 uL; Monocytes % (auto) 3.8 % (0.0-12.0); Neutrophils # (auto) 7.9 uL; Neutrophils % (auto) 79.1 % (37.0-80.0); Platelet Count (auto) 196 10^3/uL (140-450); Red Blood Cells 3.88 10^6/uL (4.0-5.20); Red Cell Distribution Width 14.3 % (11.8-14.3)
[2019-06-11] MEDS: ONDANSETRON HCL 4 MG/2 ML VIAL IV PRN ×2 (05:24→17:02)
[2019-06-11] MEDS: GABAPENTIN 300 MG CAP PO SCH ×3 (05:50→21:52)
[2019-06-11 05:51] LABS: Chloride 116 mmol/L (98-107); Potassium 3.3 mmol/L (3.5-5.1); Sodium 146 mmol/L (136-145)
[2019-06-11 05:57] LABS: Anion Gap 12 (5-15); BUN/Creatinine Ratio 13.6; Blood Urea Nitrogen 8 mg/dL (7-18); Carbon Dioxide 18 mmol/L (21-32); GFR African American 136 mL/min; GFR Non-African American 112 mL/min; Glucose 84 mg/dL (74-106)
[2019-06-11 08:28] VITALS: BP 141/90
[2019-06-11] MEDS: SODIUM CHLORIDE 0.9% 1,000 ML IV SCH ×2 (08:46→16:46)
[2019-06-11] MEDS: cefTRIAXone 1GM/50ML D5W 50 ML IV SCH (08:47)
[2019-06-11] MEDS: FAMOTIDINE 20 MG TAB PO SCH (10:21)
[2019-06-11] MEDS: FLUoxetine HCL 20 MG CAP PO SCH (10:22)
[2019-06-11] MEDS: LEVETIRACETAM 500 MG TAB PO SCH ×2 (10:22→21:53)
[2019-06-11] MEDS: DOCUSATE SOD 100 MG CAP PO SCH ×2 (10:22→21:53)
[2019-06-11] MEDS: CLOPIDOGREL BISULFATE 75 MG TAB PO SCH (10:22)
[2019-06-11] MEDS: amLODIPine BESYLATE 5 MG TAB PO SCH (10:26)
[2019-06-11] MEDS ORDERED: HYDR-531 PO (11:45)
[2019-06-11] MEDS ORDERED: DOCU-94 PO (11:45)
[2019-06-11 12:14] VITALS: BP 140/91
[2019-06-11] MEDS ORDERED: POTASSIUM CHLORIDE 20 MEQ, LIDOCAINE 1% (LOCAL ANESTH.) 2 ML in SODIUM CHL 0.9% 100 ML IV ONE (14:00)
[2019-06-11 17:00] VITALS: BP 143/89
--- NOTE | 2019-06-11 17:41 | NUR ---
MIDLINE DISCONTINUED NOTED PULSATING BLOOD ON PT'S MIDLINE, NAOMI PICC LINE NURSE AT NURSES STATION, I ASKED HER TO ASSESS PT'S MIDLINE. PER NAOMI IT IS INSERTED ON ARTERY AND NEEDS TO BE DISCONTINUED. I DISCONTINUE THE MIDLINE AND PUT PRESSURE ON IT, PT WAS COMPLAINING OF PAIN ON HER ARM. GARETH AT NURSES STATION ASK TO CHECK THE ARM. GARETH SAID TO CALL DR. MONTAÑO TO GET AN ORDER FOR ULTRASOUND TO R/O DVT, WILL CONTINUE TO MONITOR FOR BLEEDING.
--- NOTE | 2019-06-11 17:45 | NUR ---
PAGED DR. MONTAÑO TO GET AN ORDER FOR ULTRASOUND OF LEFT ARM, WAITING FOR CALL BACK.
--- NOTE | 2019-06-11 18:10 | NUR ---
DR. MONTAÑO CALLED, MADE AWARE PT'S MIDLINE WAS DISCONTINUED SINCE IT WAS INSERTED TO THE ARTERY, PT IS COMPLAINING OF PAIN IN HER ARM. HE ORDERED TO PUT PRESSURE DRESSING AND ULTRASOUND TO R/O DVT.
[2019-06-11] MEDS: ATORVASTATIN 20 MG TAB PO SCH (21:52)
[2019-06-11 22:00] VITALS: BP 140/88
[2019-06-12] MEDS: HYDROmorphone HCL 2 MG/ML VL IV PRN ×4 (02:02→20:40)
[2019-06-12] MEDS: SODIUM CHLORIDE 0.9% 1,000 ML IV SCH ×2 (02:03→21:47)
[2019-06-12 05:00] VITALS: BP 137/87
[2019-06-12] MEDS: GABAPENTIN 300 MG CAP PO SCH ×3 (05:35→21:52)
--- NOTE | 2019-06-12 08:00 | NUR ---
Opening Shift Note Assumed care of patient, awake and alert. No S/S of distress/SOB. Instructed on POC and to call for assist PRN, will continue to monitor for changes Q1hr and PRN.
[2019-06-12 08:10] VITALS: BP 141/82
--- NOTE | 2019-06-12 08:40 | NUR ---
at bedside Dr. Lord at bedside. Asked pt about pain medication. Ask if she wanted to keep the Dilaudid or the Page. Pt said Page. said to DC Dilaudid and give Page every 4 hours PRN for pain. He also said he wanted P.T. to get patient up into the chair. He informed the pt that this would help her get better and she would not continue to get weak from laying in bed. He asked where she lives and she was unable to answer but said she lives with her sister Gertrude. said when family comes in to ask if they are able to take care of her, if not we will need to find another option. put in an order for P.T. Patient was howling and crying in pain (abd). This nurse gave Zofran and Dilaudid (prior to MD D/C'ing the Dilaudid. Pt appears comfortable at this time.
[2019-06-12] MEDS: cefTRIAXone 1GM/50ML D5W 50 ML IV SCH (09:50)
[2019-06-12] MEDS: CLOPIDOGREL BISULFATE 75 MG TAB PO SCH (09:57)
[2019-06-12] MEDS: FAMOTIDINE 20 MG TAB PO SCH (09:58)
[2019-06-12] MEDS: LEVETIRACETAM 500 MG TAB PO SCH ×2 (09:58→21:52)
[2019-06-12] MEDS: FLUoxetine HCL 20 MG CAP PO SCH (09:58)
[2019-06-12] MEDS: DOCUSATE SOD 100 MG CAP PO SCH ×2 (09:59→21:51)
[2019-06-12] MEDS: amLODIPine BESYLATE 5 MG TAB PO SCH (09:59)
[2019-06-12] MEDS: HYDROcodone-ACET 5/325MG TAB PO PRN ×3 (10:10→21:53)
--- NOTE | 2019-06-12 10:11 | NUR ---
Pain medication Pt previously told the doctor that she wanted the [place] instead of the Dilaudid when he said she needed to pick one. This nurse brought her [place] in and she started yelling that she wanted pain medication IV and No [place]. She yelled this over and over even after this nurse stated she would have to call the doctor and ask him to change the order. Will contact MD Lord regarding this issue.
--- NOTE | 2019-06-12 11:45 | NUR ---
NUTRITION CONSULT/ASSESSMENT NOTES Please refer to link notes of nutrition screen form filed under the intervention section of the plan of care for further details. Est. Needs: 1700 kcal to 2050 kcal (25-30 kcal/kgBW), 68 gms to 81 gms pro (1.0-1.2 gms/kgBW). Will continue to monitor pertinent labs and reassess nutrient need prn Thank you for this consult. Addendum: 06/12/19 at [address] Amended: Links added.
--- NOTE | 2019-06-12 12:00 | NUR ---
Abd Pain Pt frequently yells for pain medication. After Dilaudid was given this morning, she stopped yelling immediately after it was given and layed back down. She started yelling again after a couple of hours and was given [place]. She was not happy about receiving [place], but quickly quieted down and went back to sleep. Once she woke up again, she started yelling again and it was explained that no pain medications could be given at that time because she had already had them. She quickly quieted down again. After waking up and yelling again, it was explained that it was still too soon for the [place]. She said she didn't want [place], she wanted IV medication. This nurse reiterated what the doctor had said previously, that the [place] was ordered because it lasts longer than the Dilaudid and that he asked her this morning which one she wanted to continue taking and she had stated the [place]. She quickly quieted down again and layed back down in the bed.
[2019-06-12 12:01] VITALS: BP 126/73
--- NOTE | 2019-06-12 12:52 | NUR ---
Labs Refused Lab staff informed this nurse that they tried three times this morning to get the ordered labs and were unable to due to patient refusal. They cancelled the labs for today.
--- NOTE | 2019-06-12 14:14 | NUR ---
Pain medication Pt continues to say she doesn't want the [place] and that it doesn't help. Le[place] was given and pt accepted it as we have no other pain medication at this time. This nurse called and left a message for Dr. Lord regarding the pain medication and patient crying and yelling. Requested to reinstate IV pain medication for patient.
--- NOTE | 2019-06-12 14:18 | NUR ---
Pain med/MD/Dilaudid Dr. Lord returned phone call and ordered Dilaudid 0.5 mg every 4 hours PRN.
--- NOTE | 2019-06-12 14:32 | NUR ---
BM UNDERGROUND ELECTRICIAN NURSE REPORTED THAT PATIENT WAS NEGATIVE FOR C-DIFF. PATIENT HAD ONE BM YESTERDAY, PER FOOD SAFETY AUDITOR, AND SHE HAS HAD 5 BMS SO FAR TODAY. THEY ARE LOOSE BUT DO NOT HAVE A STRONG ODOR.
[2019-06-12] MEDS: ONDANSETRON HCL 4 MG/2 ML VIAL IV PRN (14:47)
--- NOTE | 2019-06-12 16:33 | NUR ---
Pain Pt. continues to c/o abd. pain. Dilaudid was given at 1517. Pt c/o pain about 1-1.5 hours after pain medications are given.
[2019-06-12 16:42] VITALS: BP 146/77
--- NOTE | 2019-06-12 19:30 | NUR ---
Opening shift note: Assumed care from night nurse. Patient is crying and inconsolable sitting up on the edge of the bed. Patient is alert and orient x 4. Patient has pain 10/10. Iv is leaking and will be dc'd and new Iv will be started so patient can receive medication. Patient continues to yell "Help. Somebody help me", even with nurse bedside. Instructed patient on poc and to call for assistance. reinforcement needed. Bed is locked, side rails x2, and call light is within reach. Lobo to gravity draining clear yellow urine.
--- NOTE | 2019-06-12 20:29 | NUR ---
Dr. Rodriguez Called Dr. Rodriguez called and was informed that patient is a hard stick. Dr. rodriguez said to order midline for johnathan morning will carry out order.
[2019-06-12] MEDS: ATORVASTATIN 20 MG TAB PO SCH (21:52)
[2019-06-12 22:00] VITALS: BP 165/86
[2019-06-13] MEDS: HYDROmorphone HCL 2 MG/ML VL IV PRN ×6 (02:11→21:47)
[2019-06-13 05:00] VITALS: BP 147/94
[2019-06-13] MEDS ORDERED: LIDOCAINE 2%HCL (LOCAL ANESTH.) INJ 20ML MDV ONE (05:03)
[2019-06-13] MEDS ORDERED: LACT. RINGERS/OXYTOCIN 20UNITS 0 ML IV ONE (05:03)
[2019-06-13] MEDS: GABAPENTIN 300 MG CAP PO SCH ×3 (06:19→21:46)
[2019-06-13] MEDS: ONDANSETRON HCL 4 MG/2 ML VIAL IV PRN (06:41)
--- NOTE | 2019-06-13 07:57 | NUR ---
Opening Shift Note Assumed care of patient, resting with eyes closed. No S/S of distress/SOB or pain. Instructed on POC and to call for assist PRN, will continue to monitor for changes Q1hr and PRN.
[2019-06-13] MEDS: DOCUSATE SOD 100 MG CAP PO SCH ×2 (08:48→21:46)
[2019-06-13] MEDS: SODIUM CHLORIDE 0.9% 1,000 ML IV SCH (08:48)
[2019-06-13] MEDS: cefTRIAXone 1GM/50ML D5W 50 ML IV SCH (08:48)
--- NOTE | 2019-06-13 08:49 | NUR ---
No colace Holding Colace today due to several loose stools yesterday and one reported overnight.
[2019-06-13 09:00] VITALS: BP 159/96
[2019-06-13] MEDS: HYDROcodone-ACET 5/325MG TAB PO PRN ×3 (09:00→17:33)
--- NOTE | 2019-06-13 09:58 | NUR ---
ABD CT PATIENT TAKEN DOWN IN W/C FOR CT OF ABD/PELVIS PER ORDER.
[2019-06-13] MEDS: LEVETIRACETAM 500 MG TAB PO SCH ×2 (10:30→21:47)
[2019-06-13] MEDS: amLODIPine BESYLATE 5 MG TAB PO SCH (10:30)
--- NOTE | 2019-06-13 10:30 | NUR ---
PT DECLINED P.T. TODAY.
[2019-06-13] MEDS: FLUoxetine HCL 20 MG CAP PO SCH (10:31)
[2019-06-13] MEDS: CLOPIDOGREL BISULFATE 75 MG TAB PO SCH (10:31)
[2019-06-13] MEDS: FAMOTIDINE 20 MG TAB PO SCH (10:31)
--- NOTE | 2019-06-13 12:00 | NUR ---
IMPROVED BEHAVIOR PATIENT BEHAVIOR IMPROVED FROM YESTERDAY. MD TALKED WITH HER AND TOLD HER HE WANTS HER TO SIT UP AND HE WANTS HER TO EAT HER MEALS IN ORDER TO START GETTING BETTER. PATIENT AGREED. HE ALSO ORDERED A CT OF ABD/PELVIS WITHOUT CONTRAST.
[2019-06-13 13:00] VITALS: BP 145/89
[2019-06-13 17:00] VITALS: BP 141/76
--- NOTE | 2019-06-13 19:46 | NUR ---
RECEIVED PATIENT FROM DAY SHIFT RN. PATIENT RESTING IN BED. NO S/S OF DISTRESS NOTED. C/O PAIN @ 6/10 AFTER MEDICATION GIVEN EARLIER. INSTRUCTED PATIENT ON SCHEDULE OF PAIN MANAGEMENT. WILL COME BACK FOR PAIN MEDICATION WHEN THE TIME IS DUE AND PER PATIENT REQUESTS. ORTEGA CATH IN PLACE DRAINING GRAVITY. POC INSTRUCTED AND ENCOURAGED PATIENT TO CALL FOR SENIOR MATERIALS SCIENTIST IF NEEDED. BED IN LOWEST POSITION WITH SIDE RAILS UP X 2. CALL ROJAS WITHIN REACH. ALARM ON. CONTINUE TO MONITOR FOR CHANGES Q1H AND PRN.
--- NOTE | 2019-06-13 20:17 | NUR ---
MIDLINE placement Patient/Patient significant other educated on need for MIDLINE placement. All risks and benefits explained and all questions and concerns addressed prior to procedure. Noted past medical history and allergies with no contraindications. Plt count within acceptable range. 4 fr MIDLINE inserted via left basilic vein using [employer] US and Tip Location System. Sterile technique with maximum barrier precautions utilized. Blood return obtained from the single lumen and it flushed easily with NS using proper technique. MIDLINE secured with Stat-lock; biodisc and occlusive dressing applied. Less than 5ml EBL noted during procedure. MIDLINE 20cm internally w/ 0cm externally. *Baseline Arm Circumference 31cm at 1cm above insertion site. MIDLINE lot # [id number]. Note:
--- NOTE | 2019-06-13 20:18 | NUR ---
OK to use MIDLINE Heide Lozoya. notified now OK to use MIDLINE.
[2019-06-13 21:37] VITALS: BP 147/95
[2019-06-13] MEDS: ATORVASTATIN 20 MG TAB PO SCH (21:47)
--- NOTE | 2019-06-13 21:55 | NUR ---
MEDICATED PATIENT FOR PAIN @ 08/11. ORAL MEDICATION GIVEN ORDERED. PATIENT SWALLOWED WELL. CONTINUE TO MONITOR.
--- NOTE | 2019-06-13 22:42 | NUR ---
PAINT STRIPING MACHINE OPERATOR AT BEDSIDE, TRIED TO DRAW BLOOD FROM MIDLINE, NO ENOUGH BLOOD CAME OUT. TRIED 3 TIMES, COULD GET BLOOD OUT FOR LAB TEST. PAINT STRIPING MACHINE OPERATOR TRIED TO DRAW BLOOD, BUT FAILED. WILL TRY LATER IN THE MORNING. CONTINUE CARE.
--- NOTE | 2019-06-13 22:59 | NUR ---
SIDE RAILS PADDED NOW. CONTINUE CARE.
[2019-06-14] VITALS (7 sets, daily range): BP systolic 124–169; BP diastolic 71–102
[2019-06-14] MEDS: ONDANSETRON HCL 4 MG/2 ML VIAL IV PRN ×3 (01:57→14:09)
[2019-06-14] MEDS: HYDROmorphone HCL 2 MG/ML VL IV PRN ×6 (01:57→22:08)
--- NOTE | 2019-06-14 02:08 | NUR ---
PATIENT C/O PAIN @ 09/10. MEDICATED PATIENT ORDERED. CONTINUE TO MONITOR.
[2019-06-14] MEDS: SODIUM CHLORIDE 0.9% 1,000 ML IV SCH ×2 (02:09→11:26)
--- NOTE | 2019-06-14 03:53 | NUR ---
PATIENT RESTING IN BED. NO S/S OF DISTRESS NOTED. PADDED SIDE RAILS UP X 2. CALL ROJAS WITHIN REACH. ALARM ON. CONTINUE TO MONITOR.
[2019-06-14] MEDS: GABAPENTIN 300 MG CAP PO SCH ×3 (05:53→22:07)
--- NOTE | 2019-06-14 05:54 | NUR ---
PATIENT C/O PAIN @ 09/10. MEDICATED PATIENT ORDERED. CONTINUE TO MONITOR.
--- NOTE | 2019-06-14 08:00 | NUR ---
PATIENT EMOTIONALLY UPSET. PATIENT REQUESTING HOUSE PHONE NUMBER. DIALED PHONE NUMBER FOR PATIENT. PHONE WENT STRAIGHT TO VOICEMAIL. PATIENT CRYING AT THIS TIME. PROVIDED EMOTIONAL SUPPORT. WILL CONTINUE CARE.
--- NOTE | 2019-06-14 09:00 | NUR ---
PATIENT BM DIARRHEA. PATIENT STATES SHE HAS BEEN HAVING DIARRHEA FOR A FEW DAYS. WILL INFORM MD.
[2019-06-14] MEDS: DOCUSATE SOD 100 MG CAP PO SCH ×2 (10:00→22:07)
[2019-06-14] MEDS: CLOPIDOGREL BISULFATE 75 MG TAB PO SCH (10:18)
[2019-06-14] MEDS: LEVETIRACETAM 500 MG TAB PO SCH ×2 (10:18→22:07)
[2019-06-14] MEDS: FAMOTIDINE 20 MG TAB PO SCH (10:18)
[2019-06-14] MEDS: cefTRIAXone 1GM/50ML D5W 50 ML IV SCH (10:19)
[2019-06-14] MEDS: amLODIPine BESYLATE 5 MG TAB PO SCH (10:19)
[2019-06-14] MEDS: FLUoxetine HCL 20 MG CAP PO SCH (10:19)
--- NOTE | 2019-06-14 11:34 | NUR ---
PATIENT REFUSING LABS PER AILYN IN LAB, PATIENT HAS REFUSED 3 TIMES SINCE 0800. WILL INFORM
--- NOTE | 2019-06-14 12:00 | NUR ---
PATIENT BOWEL MOVEMENT- DIARRHEA PATIENT 3RD BOWEL MOVEMENT TODAY. WILL CONTINUE CARE.
--- NOTE | 2019-06-14 13:26 | NUR ---
MD MONTAÑO AT BEDSIDE UPDATED MD ON PATIENT STATUS. NEW ORDERS GIVEN, READ BACK AND VERIFIED. SEE ORDERS, WILL FOLLOW THROUGH WITH NEW ORDERS. Addendum: 06/14/19 at 1647 by JONAS BEARD RN MD AWARE OF PATIENT BOWEL MOVEMENTS.
--- NOTE | 2019-06-14 17:40 | NUR ---
PATIENT AGITATED. PATIENT STATING SHE IS TIRED OF DISEASE, CRYING AT THIS TIME. PROVIDED EMOTIONAL SUPPORT. WILL CONTINUE CARE.
--- NOTE | 2019-06-14 19:27 | NUR ---
RECEIVED PATIENT FROM DAY SHIFT RN. PATIENT RESTING IN BED. NO S/S OF DISTRESS NOTED. C/O PAIN @ 8/10 AFTER MEDICATION GIVEN EARLIER. REINFORCED PATIENT ON SCHEDULE OF PAIN MANAGEMENT. WILL COME BACK FOR PAIN MEDICATION WHEN THE TIME IS DUE AND PER PATIENT REQUESTS. ORTEGA CATH IN PLACE DRAINING GRAVITY. POC INSTRUCTED AND ENCOURAGED PATIENT TO CALL FOR TRASH COLLECTOR SUPERVISOR IF NEEDED. BED IN LOWEST POSITION WITH SIDE RAILS UP X 2. CALL ROJAS WITHIN REACH. ALARM ON. CONTINUE TO MONITOR FOR CHANGES Q1H AND PRN.
[2019-06-14] MEDS: ATORVASTATIN 20 MG TAB PO SCH (22:07)
--- NOTE | 2019-06-14 22:25 | NUR ---
MEDICATED PATIENT FOR PAIN @ 09/10. ORAL MEDICATION GIVEN ORDERED. PATIENT SWALLOWED WELL. CONTINUE TO MONITOR.
--- NOTE | 2019-06-15 00:12 | NUR ---
PATIENT SLEEPING. NO S/S OF DISTRESS NOTED. CONTINUE CARE.
[2019-06-15] MEDS: SODIUM CHLORIDE 0.9% 1,000 ML IV SCH ×2 (02:11→14:06)
[2019-06-15] MEDS: HYDROmorphone HCL 2 MG/ML VL IV PRN ×3 (02:11→10:29)
--- NOTE | 2019-06-15 02:11 | NUR ---
PATIENT C/O PAIN @ 07/11. MEDICATED ORDERED. CONTINUE TO MONITOR.
[2019-06-15 05:39] VITALS: BP 142/88
[2019-06-15] MEDS: GABAPENTIN 300 MG CAP PO SCH ×2 (06:10→14:00)
--- NOTE | 2019-06-15 06:15 | NUR ---
PATIENT HAD BM, CLEANED PATIENT. PATIENT TOLERATED WELL. C/O PAIN @ 09/10. MEDICATED PATIENT ORDERED. CONTINUE TO MONITOR.
--- NOTE | 2019-06-15 08:00 | NUR ---
PT RESTING IN BED, NO DISTRESS NOTED. PT DENIES PAIN AT THIS TIME. PT A AND 0 X 2. PT AWARE OF NAME AND WHEREABOUTS. BED ALARM ON. RECEIVED IN REPORT PT DOES NOT AMBULATE BUT DANGLES FEET AT SIDE OF BED. SIDE RAILS UP X2, BED IN LOWEST LOCKED POSITION. 125 MLS CLEAR STRAW COLORED URINE DRAINED FROM ORTEGA. WILL CONTINUE TO MONITOR.
[2019-06-15 08:32] VITALS: BP 143/80
[2019-06-15] MEDS: CLOPIDOGREL BISULFATE 75 MG TAB PO SCH (09:31)
[2019-06-15] MEDS: LEVETIRACETAM 500 MG TAB PO SCH (09:31)
[2019-06-15] MEDS: FAMOTIDINE 20 MG TAB PO SCH (09:31)
[2019-06-15] MEDS: FLUoxetine HCL 20 MG CAP PO SCH (09:32)
[2019-06-15] MEDS: DOCUSATE SOD 100 MG CAP PO SCH (09:32)
[2019-06-15] MEDS: amLODIPine BESYLATE 5 MG TAB PO SCH (09:32)
[2019-06-15] MEDS: cefTRIAXone 1GM/50ML D5W 50 ML IV SCH (09:33)
--- NOTE | 2019-06-15 10:12 | NUR ---
SPOKE WITH DR MONTAÑO, REPORTS PT IS DISCHARGED HOME. ORDERS TO DC SHANNON AND JUAN JUST BEFORE PT LEAVES, TO MAKE SURE PT HAS A RIDE HOME FIRST. Addendum: 06/15/19 at 1053 by STEVEN ERVIN RN ASKED MD IF HE WANTED TO WAIT UNTIL PT VOIDED TO SEND HOME ONCE SHANNON WAS DC'D. REPORTS NO, TO GO AHEAD AND SEND HER HOME.
--- NOTE | 2019-06-15 11:02 | NUR ---
CALLED PT SISTER DEANDRE AND NOTIFIED HER PT IS BEING DISCHARGED. DEANDRE REPORTS SHE WILL BE HERE ABOUT 12:30. WILL CONTINUE TO MONITOR.
--- NOTE | 2019-06-15 11:28 | NUR ---
RECEIVED CALL FROM LAB, PT REFUSING BLOOD DRAW FOR THIRD TIME.
--- NOTE | 2019-06-15 12:37 | NUR ---
SWIMMING POOL SERVICE TECHNICIAN REPORTS PATIENT BP 165/93, HR 99. SWIMMING POOL SERVICE TECHNICIAN REASSESSED BLOOD PRESSURE, BP 138/64.
[2019-06-15 12:54] VITALS: BP 138/64
[2019-06-15 12:55] VITALS: BP 138/64
--- NOTE | 2019-06-15 13:27 | NUR ---
PATIENT SCREAMING AND YELLING, "WHERE IS SHE, WHERE IS SHE!!!" ENTERED ROOM, PT STANDING BY BED YELLING TOWARD WINDOW. PATIENT REPORTS SHE WANTS TO KNOW WHERE HER SISTER IS. CALMED PATIENT AND PUT PATIENT BACK IN BED. NO PRN FOR ANXIETY. REASSURED PATIENT HER SISTER WOULD BE CALLED. CALLED SISTER. DEANDRE REPORTS SHE IS "ONE BLOCK AWAY." NOTIFIED PATIENT. PATIENT SITTING IN BED, CALM.
--- NOTE | 2019-06-15 14:23 | NUR ---
SPOKE WITH PT SISTER WHO IS CAREGIVER. INSTRUCTED HER TO HAVE PATIENT FOLLOW UP WITH MANAGER OF HEALTH FOR ECHOCARDIOGRAM. DEANDRE REPORTS PT HAS NO HISTORY OF HEART ATTACK OR HEART FAILURE, JUST CVA'S. WILL CONTINUE TO MONITOR.
--- NOTE | 2019-06-15 14:25 | NUR ---
Discharge instructions given as ordered. Encourage to follow up with PMD as instructed. All questions and concerns addressed. Patient and sister verbalized understanding. Medication reconciliation form completed and copy given to patient's sister. PICC line removed with catheter intact, pressure dressing applied, lafleur catheter removed. Telemetry unit returned to ICU. Patient taken to vehicle via wheelchair with all personal belongings, accompanied by staff and sister. No distress noted at time of departure. Addendum: 06/15/19 at 1435 by STEVEN ERVIN RN SISTER DEANDRE IS PATIENT CAREGIVER AND CAME AND PICKED UP PATIENT AND SIGNED DISCHARGE PAPERWORK. PATIENT EDUCATION AND DISCHARGE INSTRUCTIONS GIVEN TO BOTH PATIENT AND SISTER.
--- NOTE | 2019-06-15 15:03 | NUR ---
assessment Patient discharged home prior to being assessed for ss consult possible placement. Per JEAN MARIE Nancy patient has a caregiver and went home with her sister. Addendum: 06/15/19 at 1504 by Venus SHEPHERD Amended: Links added.
== END 2019-06-15 14:30 | disposition home or self-care (01) | DRG 720 ==
LOC: EDBD 07:54 → ER 07:59 → TELE-WESTW 08:00 → OVERFLOW 19:59 → TELE-CENTR 21:05
PROVIDERS: ADMIT Nurse Practitioner Acute Care; ATTEND Internal Medicine
DX: A41.9 Sepsis, unspecified organism (principal); F11.20 Opioid dependence, uncomplicated; G40.909 Epilepsy, unspecified, not intractable, without status epilepticus; N39.0 Urinary tract infection, site not specified; R73.9 Hyperglycemia, unspecified; I69.351 Hemiplegia and hemiparesis following cerebral infarction affecting right dominant side; I69.354 Hemiplegia and hemiparesis following cerebral infarction affecting left non-dominant side; F41.9 Anxiety disorder, unspecified; N18.9 Chronic kidney disease, unspecified; F32.9 Major depressive disorder, single episode, unspecified; E66.9 Obesity, unspecified; G89.4 Chronic pain syndrome; B95.1 Streptococcus, group B, as the cause of diseases classified elsewhere; E78.5 Hyperlipidemia, unspecified; J44.9 Chronic obstructive pulmonary disease, unspecified; Z53.20 Procedure and treatment not carried out because of patient's decision for unspecified reasons; K42.9 Umbilical hernia without obstruction or gangrene; Z82.3 Family history of stroke; Z82.49 Family history of ischemic heart disease and other diseases of the circulatory system; Z83.3 Family history of diabetes mellitus; Z68.23 Body mass index [BMI] 23.0-23.9, adult; Z87.440 Personal history of urinary (tract) infections; Z79.899 Other long term (current) drug therapy; Z79.02 Long term (current) use of antithrombotics/antiplatelets
CPT/HCPCS: 36415; 74176; 80048; 80053; 81001; 82150; 83605; 83690; 83735; 84484; 85025; 87040; 87086; 93005; 93971; 94761; 96361; 96365; 96375; G0378; J0696; J2001; J2405; J2590

== ENCOUNTER 2020-02-24 09:45 | Inpatient (IN) | payer MEDICAID ==
[~2020-02-24] VITALS: Ht 172.7 cm; Wt 60.6 kg
[~2020-02-24 09:45] MED LIST changes: -AMLO5TAB13 PO; +AMLO5TAB15 PO; -CEPH250C2 PO; +DOCU-94 PO; +HYDR-531 PO
[2020-02-24 10:41] LABS: Basophils # (auto) 0.1 10 ^3/uL (0-0.2); Basophils % (auto) 0.8 % (0.0-2.0); Eosinophils # (auto) 0 10 ^3/uL (0-0.8); Eosinophils % (auto) 0.3 % (0.0-7.0); Hematocrit 36.6 % (36.0-46.0); Hemoglobin 11.8 g/dL (12.2-16.2); Lymphocytes # (auto) 1.3 10 ^3/uL (0.4-5.4); Lymphocytes % (auto) 11.7 % (10.0-50.0); Mean Corpuscular Hemoglobin 27.8 pg (28.0-32.0); Mean Corpuscular Hgb Conc. 32.3 g/dL (32.0-36.0); Mean Corpuscular Volume 86.1 fL (80.0-100.0); Monocytes # (auto) 0.4 10 ^3/uL (0-1.3); Monocytes % (auto) 3.4 % (0.0-12.0); Neutrophils # (auto) 9.6 10 ^3/uL (1.6-8.6); Neutrophils % (auto) 83.8 % (37.0-80.0); Platelet Count (auto) 211 10^3/uL (140-450); Red Blood Cells 4.25 10^6/uL (4.0-5.20); Red Cell Distribution Width 14.8 % (11.8-14.3); White Blood Cell 11.5 10^3/uL (4.4-10.8)
[2020-02-24 10:58] LABS: Albumin 3.5 g/dL (3.4-5.0); Calcium 8.9 mg/dL (8.5-10.1); Potassium 3.2 mmol/L (3.5-5.1)
[2020-02-24] MEDS ORDERED: HYDROmorphone HCL 2 MG/ML VL IV ONE (11:00)
[2020-02-24] MEDS ORDERED: SODIUM CHLORIDE 0.9% 500 ML IVB ONE (11:00)
[2020-02-24] MEDS ORDERED: SODIUM CHLORIDE 0.9% 1,000 ML IV ONE (11:00)
[2020-02-24 11:01] LABS: BUN/Creatinine Ratio 11.9; Bilirubin, Total 0.4 mg/dL (0.2-1.0); Total Protein 7.8 g/dL (6.4-8.2)
[2020-02-24 11:35] LABS: Lipase 38 U/L (73-393); Magnesium 1.8 mg/dL (1.6-2.6)
[2020-02-24] MEDS: PROMETHAZINE HCL 25 MG/ML 1ML IV PRN ×2 (11:37→20:40)
[2020-02-24 11:38] LABS: INR 1.05 (0.9-1.15); Partial Thromboplastin Time 24.8 sec (23.64-32.05)
[2020-02-24] MEDS ORDERED: POTASSIUM EFFERVESENT TAB 25 MEQ PO ONE (15:15)
[2020-02-24 15:30] LABS: Urine Bacteria NONE SEEN /hpf (None Seen); Urine Blood Negative /uL (Negative); Urine Mucus FEW (None Seen); Urine Specific Gravity 1.007 (1.001-1.035); Urine WBC 1 /hpf (0 - 5)
[2020-02-24] MEDS ORDERED: ACETAMINOPHEN 500 MG TAB PO PRN (17:30)
[2020-02-24] MEDS: SOD CHL 0.9%/ KCL 20MEQ 1,000 ML IV SCH (18:00)
[2020-02-24] MEDS: MORPHINE SULF INJ 2 MG/ML SYRINGE 1ML IV PRN (20:40)
--- NOTE | 2020-02-24 20:57 | NUR ---
PATIENT ARRIVED TO UNIT FROM EMERGENCY ROOM VIA GURNEY. PATIENT IS AOX3 AND HAS HISTORY OF CVA AND HAS RIGHT SIDE DEFICITS. PATIENT STATES SHE IS UNABLE TO AMBULATE. SHE HAS A ORTEGA PLACED FROM THE EMERGENCY ROOM. SHE HAS A 18 GAUGE TO THE LEFT EXTERNAL JUGULAR. LUNG SOUNDS WERE CLEAR TO AUSCULTATION ON ROOM AIR. SHE HAS ABDOMINAL PAIN IN THE LOWER QUADRANTS UPON LIGHT PALPATION. BED IS LOCKED IN LOWEST POSITION WITH SIDE RAILS UP X 2. WILL CONTINUE TO MONITOR.
[2020-02-24] MEDS ORDERED: TRAZ-181 PO (21:44)
[2020-02-24 22:00] VITALS: BP 148/91
[2020-02-24] MEDS: metroNIDAZOLE 500MG/100ML 100 ML IV SCH (22:00)
[2020-02-24] MEDS: traZODone HCL 50 MG TAB PO SCH (22:01)
[2020-02-24] MEDS: GABAPENTIN 300 MG CAP PO SCH (22:01)
[2020-02-24] MEDS: levETIRAcetam 500 MG TAB PO SCH (22:01)
[2020-02-24] MEDS: ATORVASTATIN 20 MG TAB PO SCH (22:02)
--- NOTE | 2020-02-25 01:55 | NUR ---
PATIENT BECAME VERY CONFUSED SCREAMING FOR HELP. I SPOKE WITH PATIENT SHE WAS ABLE TO TELL ME HER NAME BUT NOT WHERE SHE WAS OR WHY SHE WAS HERE ONCE SHE LEARNED SHE WAS IN HOSPITAL. I REORIENTED HER TO HER SURROUNDINGS AND TO MYSELF HER NURSE. BED ALARM WAS VERIFIED AND ON. WILL CONTINUE TO MONITOR.
[2020-02-25] MEDS: MORPHINE SULF INJ 2 MG/ML SYRINGE 1ML IV PRN ×3 (04:54→21:06)
[2020-02-25 05:42] VITALS: BP 155/100
[2020-02-25] MEDS: GABAPENTIN 300 MG CAP PO SCH ×3 (06:16→21:51)
[2020-02-25] MEDS: SOD CHL 0.9%/ KCL 20MEQ 1,000 ML IV SCH ×3 (06:17→17:29)
[2020-02-25] MEDS: metroNIDAZOLE 500MG/100ML 100 ML IV SCH ×3 (06:17→21:51)
[2020-02-25 08:00] VITALS: BP 155/105
[2020-02-25 09:21] VITALS: BP 155/105
[2020-02-25 09:51] LABS: Albumin 3.8 g/dL (3.4-5.0); Calcium 8.9 mg/dL (8.5-10.1); Potassium 3.8 mmol/L (3.5-5.1)
[2020-02-25 09:55] LABS: BUN/Creatinine Ratio 10.4; Bilirubin, Total 0.8 mg/dL (0.2-1.0); Total Protein 8.2 g/dL (6.4-8.2)
[2020-02-25] MEDS: levETIRAcetam 500 MG TAB PO SCH ×2 (10:03→21:50)
[2020-02-25] MEDS: PANTOPRAZOLE 40 MG/10 ML VIAL INJ IV SCH (10:03)
[2020-02-25] MEDS: levoFLOXacin 500MG 100 ML IV SCH (10:03)
[2020-02-25 12:18] VITALS: BP 160/107
[2020-02-25 13:31] LABS: Basophils # (auto) 0.1 10 ^3/uL (0-0.2); Basophils % (auto) 0.4 % (0.0-2.0); Eosinophils # (auto) 0 10 ^3/uL (0-0.8); Hematocrit 42.5 % (36.0-46.0); Hemoglobin 13.6 g/dL (12.2-16.2); Lymphocytes # (auto) 1.9 10 ^3/uL (0.4-5.4); Mean Corpuscular Hemoglobin 27.9 pg (28.0-32.0); Mean Corpuscular Hgb Conc. 32.1 g/dL (32.0-36.0); Mean Corpuscular Volume 86.8 fL (80.0-100.0); Monocytes # (auto) 0.7 10 ^3/uL (0-1.3); Monocytes % (auto) 5.5 % (0.0-12.0); Neutrophils # (auto) 9.8 10 ^3/uL (1.6-8.6); Neutrophils % (auto) 79.1 % (37.0-80.0); Platelet Count (auto) 175 10^3/uL (140-450); Red Blood Cells 4.89 10^6/uL (4.0-5.20); Red Cell Distribution Width 15.1 % (11.8-14.3); White Blood Cell 12.4 10^3/uL (4.4-10.8)
[2020-02-25 16:38] VITALS: BP 156/104
--- NOTE | 2020-02-25 19:10 | NUR ---
Opening Shift Note Assumed care of patient, awake and alert. No S/S of distress/SOB. Patient complains of pain, pain level 10, will medicate per MD order. Patient complains of n/v, will medicate per MD order. Instructed on POC and to call for assist PRN, will continue to monitor for changes Q1hr and PRN. Bed is in lowest position, bed rails 2x. Call light and bedside table are within reach.
[2020-02-25] MEDS: ONDANSETRON HCL 4 MG/2 ML VIAL IV PRN (21:06)
[2020-02-25] MEDS: traZODone HCL 50 MG TAB PO SCH (21:49)
[2020-02-25] MEDS: ATORVASTATIN 20 MG TAB PO SCH (21:49)
[2020-02-25 22:00] VITALS: BP 165/107
[2020-02-26] VITALS (8 sets, daily range): BP systolic 135–165; BP diastolic 96–107
[2020-02-26] MEDS: SOD CHL 0.9%/ KCL 20MEQ 1,000 ML IV SCH ×3 (01:52→17:30)
[2020-02-26] MEDS: MORPHINE SULF INJ 2 MG/ML SYRINGE 1ML IV PRN ×4 (02:16→19:41)
--- NOTE | 2020-02-26 02:16 | NUR ---
Patient complains of pain Pain level 10. Medicated per MD orders. Patient instructed to call for assistance when needed, call light within reach. Will continue to monitor Q1 and PRN.
--- NOTE | 2020-02-26 02:55 | NUR ---
Pain reassessment Patient pain level 3, patient resting comfortably in bed
--- NOTE | 2020-02-26 04:50 | NUR ---
Patient refused labs Patient states she wants to sleep. Labs will be drawn at 1000 per patient request. Morning shift RN will be notified.
[2020-02-26] MEDS: ONDANSETRON HCL 4 MG/2 ML VIAL IV PRN ×4 (05:00→19:41)
[2020-02-26] MEDS: metroNIDAZOLE 500MG/100ML 100 ML IV SCH ×3 (05:09→22:01)
[2020-02-26] MEDS: GABAPENTIN 300 MG CAP PO SCH ×3 (05:09→22:02)
--- NOTE | 2020-02-26 07:15 | NUR ---
Opening Shift Note Assumed care of patient, awake and alert. No S/S of distress/SOB or pain. Instructed on POC and to call for assist PRN, will continue to monitor for changes Q1hr and PRN. Fall and seizure precautions in place per safety protocol.
[2020-02-26] MEDS: levoFLOXacin 500MG 100 ML IV SCH (10:04)
[2020-02-26] MEDS: PANTOPRAZOLE 40 MG/10 ML VIAL INJ IV SCH (10:04)
[2020-02-26] MEDS: levETIRAcetam 500 MG TAB PO SCH ×2 (10:04→22:03)
[2020-02-26 15:38] LABS: Basophils # (auto) 0 10 ^3/uL (0-0.2); Basophils % (auto) 0.4 % (0.0-2.0); Eosinophils # (auto) 0 10 ^3/uL (0-0.8); Eosinophils % (auto) 0.1 % (0.0-7.0); Hematocrit 37.8 % (36.0-46.0); Hemoglobin 12.4 g/dL (12.2-16.2); Lymphocytes # (auto) 1.8 10 ^3/uL (0.4-5.4); Lymphocytes % (auto) 17.4 % (10.0-50.0); Mean Corpuscular Hemoglobin 27.6 pg (28.0-32.0); Mean Corpuscular Hgb Conc. 32.8 g/dL (32.0-36.0); Mean Corpuscular Volume 84.1 fL (80.0-100.0); Monocytes # (auto) 0.6 10 ^3/uL (0-1.3); Monocytes % (auto) 5.5 % (0.0-12.0); Neutrophils # (auto) 7.8 10 ^3/uL (1.6-8.6); Neutrophils % (auto) 76.6 % (37.0-80.0); Nucleated Red Blood Cells % 0.1 %; Platelet Count (auto) 126 10^3/uL (140-450); Red Cell Distribution Width 15.1 % (11.8-14.3); White Blood Cell 10.1 10^3/uL (4.4-10.8)
[2020-02-26 15:53] LABS: Albumin 3.3 g/dL (3.4-5.0); Calcium 8.5 mg/dL (8.5-10.1); Potassium 3.5 mmol/L (3.5-5.1)
[2020-02-26 15:56] LABS: BUN/Creatinine Ratio 13.5; Bilirubin, Total 0.8 mg/dL (0.2-1.0); Total Protein 7.7 g/dL (6.4-8.2)
--- NOTE | 2020-02-26 17:06 | NUR ---
Midline Placement: Patient educated on need for midline placement. All risks and benefits explained and all questions and concerns addresses prior to procedure. 18g/10cm midline inserted via left brachial vein using Ultrasound. Sterile technique utilized. Blood return obtained from lumen and flushed easily with NS using proper technique. Midline secured with saline lock; biodisc and occlusive dressing applied. Primary RN notified. Midline lot #[id number].
[2020-02-26] MEDS: hydrALAZINE HCL 20 MG/ML VL IV PRN (17:49)
--- NOTE | 2020-02-26 19:18 | NUR ---
Opening Shift Note Assumed care of patient, awake and alert. No S/S of distress/SOB. Patient complains of pain and n/v, pain level 10, will medicate per MD orders. Instructed on POC and to call for assist PRN, will continue to monitor for changes Q1hr and PRN. Bed is in lowest position and bed rails 2x. Call light and bedside table are within reach.
--- NOTE | 2020-02-26 19:25 | NUR ---
Endorsed care to night JEAN MARIE Larson.
--- NOTE | 2020-02-26 20:11 | NUR ---
Pain reassessment Patient pain level 2. Resting in bed comfortably, no s/s of distress. Will continue to monitor Q1 and PRN. Call light and bedside table are within reach.
[2020-02-26] MEDS: ATORVASTATIN 20 MG TAB PO SCH (22:02)
[2020-02-26] MEDS: traZODone HCL 50 MG TAB PO SCH (22:02)
[2020-02-27] VITALS (7 sets, daily range): BP systolic 142–185; BP diastolic 86–109
[2020-02-27] MEDS: SOD CHL 0.9%/ KCL 20MEQ 1,000 ML IV SCH ×3 (01:39→17:30)
[2020-02-27] MEDS: MORPHINE SULF INJ 2 MG/ML SYRINGE 1ML IV PRN ×3 (03:57→20:46)
[2020-02-27] MEDS: metroNIDAZOLE 500MG/100ML 100 ML IV SCH ×3 (05:18→20:58)
[2020-02-27] MEDS: GABAPENTIN 300 MG CAP PO SCH ×3 (05:18→20:56)
[2020-02-27] MEDS: hydrALAZINE HCL 20 MG/ML VL IV PRN ×3 (05:58→20:58)
[2020-02-27 06:09] LABS: Basophils # (auto) 0.1 10 ^3/uL (0-0.2); Basophils % (auto) 0.7 % (0.0-2.0); Eosinophils # (auto) 0 10 ^3/uL (0-0.8); Hemoglobin 11.9 g/dL (12.2-16.2); Lymphocytes # (auto) 1.7 10 ^3/uL (0.4-5.4); Lymphocytes % (auto) 18.6 % (10.0-50.0); Mean Corpuscular Volume 85.1 fL (80.0-100.0); Monocytes # (auto) 0.5 10 ^3/uL (0-1.3); Monocytes % (auto) 5.8 % (0.0-12.0); Neutrophils % (auto) 74.9 % (37.0-80.0); Nucleated Red Blood Cells % 0.2 %; Platelet Count (auto) 112 10^3/uL (140-450); Red Blood Cells 4.11 10^6/uL (4.0-5.20); Red Cell Distribution Width 15.2 % (11.8-14.3); White Blood Cell 9.3 10^3/uL (4.4-10.8)
[2020-02-27 06:28] LABS: Albumin 3.2 g/dL (3.4-5.0); BUN/Creatinine Ratio 13.3; Calcium 8.3 mg/dL (8.5-10.1); Potassium 3.3 mmol/L (3.5-5.1)
[2020-02-27 06:31] LABS: Bilirubin, Total 0.9 mg/dL (0.2-1.0); Total Protein 7.3 g/dL (6.4-8.2)
--- NOTE | 2020-02-27 08:00 | NUR ---
Morning note Patient resting in bed with even and unlabored respirations, no distress noted. Instructed patient on POC, fall precautions and to call for assistance as needed. Patient verbalized understanding, reinforcement needed. Fall precautions in place with call light within reach; bed alarm on for safety.
[2020-02-27] MEDS: PANTOPRAZOLE 40 MG/10 ML VIAL INJ IV SCH (09:41)
[2020-02-27] MEDS: levoFLOXacin 500MG 100 ML IV SCH (09:42)
[2020-02-27] MEDS: levETIRAcetam 500 MG TAB PO SCH ×2 (09:42→20:57)
--- NOTE | 2020-02-27 09:45 | NUR ---
RE: Pain Patient reporting pain in the RLQ. Patient stated "I'm scared." Patient reoriented to situation and place. Patient continues to repeat "I'm scared." Patient unable to explain further RE: her statement. Patient medicated with PRN pain medication per MD order. This RN offered to reposition patient for comfort. Patient refused. Bed alarm on for safety. Call light within reach.
--- NOTE | 2020-02-27 12:42 | NUR ---
Patient requesting [place] - Contacted MD Message left with Dr. Helton to resume PRN pain medication; Fluoxetine and Norvasc from home. Notified MD of patient's anxiousness behavior and patient's statement of "I'm scared.". Awaiting orders.
[2020-02-27] MEDS ORDERED: FLUoxetine HCL 20 MG CAP PO ONE (13:00)
[2020-02-27] MEDS ORDERED: amLODIPine BESYLATE 5 MG TAB PO ONE (13:00)
[2020-02-27] MEDS ORDERED: POTASSIUM CHL 20 Meq TABLET PO ONE (13:00)
[2020-02-27] MEDS: HYDROcodone-ACET 10/325MG TAB PO PRN (13:15)
[2020-02-27] MEDS: ALPRAZolam 0.25 MG TAB PO PRN (16:21)
--- NOTE | 2020-02-27 16:37 | NUR ---
Called patient's family per request of patient Attempted to contact patient's sister, Eufemia. Called multiple phone numbers on file. Unable to make contact. Contacted patient's daughter, Kelsey, at [phone]. Updated Kelsey on patient's status & POC. Kelsey verbalized understanding. Kelsey requesting that MD call family to update on patient's status & POC due to patient's inability to understand medical diagnosis and treatment plan. Kelsey stated "She's been in there for 3 days now and we haven't heard from any doctor on what's going on. She went in there for not being right in her mind and haven't heard anything but you guys are running all these tests." Note to be placed on hard chart by this RN. Patient spoke to Kelsey on the phone. Kelsey provided a new phone number for Eufemia . This RN called phone number. No answer and voicemail full. This RN asked patient if she wanted to call back Kelsey. Patient stated "no, that's okay."
--- NOTE | 2020-02-27 17:32 | NUR ---
Patient's sister, Eufemia, called for an update Password obtained. Updated provided.
--- NOTE | 2020-02-27 17:53 | NUR ---
Patient sitting at side of bed with both feet dangling from bed Patient eating dinner meal. Patient refused puree soup served. This RN prepared patient chicken broth per patient's request. Standby assistance provided with meal tray. Call light within reach.
--- NOTE | 2020-02-27 18:41 | NUR ---
RE: order for stool specimen Patient has not had BM during this RN's shift. Specimen cup at bedside for stool specimen.
--- NOTE | 2020-02-27 18:42 | NUR ---
Closing note Patient resting in bed with even and unlabored respirations, no distress noted. Fall precautions in place with call light within reach, bed alarm on for safety. Staff member at bedside for safety.
--- NOTE | 2020-02-27 19:10 | NUR ---
OPENING SHIFT NOTE: PATIENT IS AWAKE AND ALERT, ORIENTED TO SELF ONLY, STATING REPEATEDLY THAT SHE IS "SCARED" BUT CAN NOT VERBALIZE WHY. SITTER AT THE BEDSIDE. BED IS LOW, LOCKED, TWO SIDE RAILS RAISED, AND CALL LIGHT IS WITHIN REACH. ORTEGA IS HUNG BELOW THE BLADDER AND DRAINING TO GRAVITY. PATIENT IS CONNECTED TO TELE BOX #73 AND THE CURRENT READING IS 102 BPM. INSTRUCTED ON POC AND TO CALL FOR ASSISTANCE. WILL CONTINUE TO MONITOR Q 1HR AND PRN.
--- NOTE | 2020-02-27 19:27 | NUR ---
Care endorsed JEAN MARIE Wallace.
[2020-02-27] MEDS: PROMETHAZINE HCL 25 MG/ML 1ML IV PRN (20:46)
[2020-02-27] MEDS: ATORVASTATIN 20 MG TAB PO SCH (20:57)
--- NOTE | 2020-02-27 21:30 | NUR ---
PATIENT REFUSES MED: PATIENT IS AGITATED AND CRYING, REFUSES TRAZADONE, SPOKE WITH SISTER COLIN ON THE PHONE AND SHE CONFIRMED THEY DO NOT WANT HER TO TAKE THE TRAZADONE AND SHE STATED THAT SHE BELIEVES THIS MEDICATION IS THE REASON SHE HAS BEEN CRYING AND SAYING SHE IS AFRAID. MEDICATION HELD PER REQUEST OF PATIENT AND FAMILY. WILL CONTINUE TO MONITOR Q 1 HR AND PRN.
[2020-02-27] MEDS: traZODone HCL 50 MG TAB PO SCH (22:00)
--- NOTE | 2020-02-27 23:35 | NUR ---
PATIENT RESTING COMFORTABLY, NO LONGER AGITATED OR CRYING. SITTER AT THE BEDSIDE. WILL CONTINUE TO MONITOR.
--- NOTE | 2020-02-28 01:06 | NUR ---
PATIENT RESTING COMFORTABLY, SITTER NO LONGER AT THE BEDSIDE. BED IS LOW, LOCKED, TWO SIDE RAILS RAISED, CALL ROJAS IS WITHIN REACH, AND BED ALARM IS ACTIVATED. ENCOURAGED PATIENT TO USE CALL ROJAS FOR ASSISTANCE. WILL CONTINUE TO MONITOR Q1HR AND PRN.
[2020-02-28] MEDS: SOD CHL 0.9%/ KCL 20MEQ 1,000 ML IV SCH ×3 (01:16→17:41)
[2020-02-28] MEDS: MORPHINE SULF INJ 2 MG/ML SYRINGE 1ML IV PRN ×4 (01:24→20:16)
--- NOTE | 2020-02-28 04:11 | NUR ---
PATIENT RESTLESS STATING SHE IS "SCARED". PATIENT REORIENTED TO ENVIRONMENT AND SITUATION BUT CONTINUES TO REPEAT "I'M SCARED". PATIENT HAS BEEN REPOSITIONED FOR COMFORT. TWO SIDE RAILS ARE RAISED, BED IS LOW AND LOCKED WITH BED ALARM ACTIVATED FOR SAFETY AND CALL ROJAS IS WITHIN REACH.
[2020-02-28] MEDS: ALPRAZolam 0.25 MG TAB PO PRN ×2 (04:23→17:48)
[2020-02-28] MEDS: metroNIDAZOLE 500MG/100ML 100 ML IV SCH ×3 (05:48→22:18)
[2020-02-28] MEDS: GABAPENTIN 300 MG CAP PO SCH ×3 (05:48→22:18)
[2020-02-28 08:00] VITALS: BP 137/104
[2020-02-28 08:57] LABS: Basophils # (auto) 0.1 10 ^3/uL (0-0.2); Basophils % (auto) 0.8 % (0.0-2.0); Eosinophils # (auto) 0 10 ^3/uL (0-0.8); Eosinophils % (auto) 0.1 % (0.0-7.0); Hematocrit 34.3 % (36.0-46.0); Hemoglobin 11.3 g/dL (12.2-16.2); Lymphocytes % (auto) 24.3 % (10.0-50.0); Mean Corpuscular Hemoglobin 28.1 pg (28.0-32.0); Mean Corpuscular Volume 85.1 fL (80.0-100.0); Monocytes # (auto) 0.5 10 ^3/uL (0-1.3); Monocytes % (auto) 5.7 % (0.0-12.0); Neutrophils # (auto) 5.8 10 ^3/uL (1.6-8.6); Neutrophils % (auto) 69.1 % (37.0-80.0); Nucleated Red Blood Cells % 0.1 %; Platelet Count (auto) 102 10^3/uL (140-450); Red Blood Cells 4.03 10^6/uL (4.0-5.20); Red Cell Distribution Width 15.3 % (11.8-14.3); White Blood Cell 8.4 10^3/uL (4.4-10.8)
--- NOTE | 2020-02-28 09:00 | NUR ---
Patient stating "I'm scared." Patient unable to provide further explanation. Respirations even and unlabored on room air, no distress noted. This RN sitting at bedside to provide comfort to patient. Patient reposition for comfort.
[2020-02-28 09:16] LABS: Albumin 3.3 g/dL (3.4-5.0); Calcium 8.3 mg/dL (8.5-10.1); Potassium 3.9 mmol/L (3.5-5.1)
[2020-02-28 09:19] LABS: BUN/Creatinine Ratio 10.6; Bilirubin, Total 0.7 mg/dL (0.2-1.0); Total Protein 7.1 g/dL (6.4-8.2)
[2020-02-28] MEDS: POTASSIUM CHL 20 Meq TABLET PO SCH (09:22)
[2020-02-28] MEDS: levoFLOXacin 500MG 100 ML IV SCH (09:22)
[2020-02-28] MEDS: PROMETHAZINE HCL 25 MG/ML 1ML IV PRN ×2 (09:22→18:03)
[2020-02-28] MEDS: PANTOPRAZOLE 40 MG/10 ML VIAL INJ IV SCH (09:22)
[2020-02-28] MEDS: HYDROcodone-ACET 10/325MG TAB PO PRN ×3 (09:23→23:53)
[2020-02-28] MEDS: FLUoxetine HCL 20 MG CAP PO SCH (09:23)
[2020-02-28] MEDS: levETIRAcetam 500 MG TAB PO SCH ×2 (09:23→22:18)
[2020-02-28] MEDS: amLODIPine BESYLATE 5 MG TAB PO SCH (09:24)
--- NOTE | 2020-02-28 10:14 | NUR ---
Patient resting in bed with eyes closed Respirations even and unlabored on room air, no distress noted. Staff has music playing in patient's room to provide comfort. Call light within reach. Bed alarm on for safety.
--- NOTE | 2020-02-28 11:04 | NUR ---
Called patient's sister to update on patient's status No answer. Voicemail left.
--- NOTE | 2020-02-28 11:35 | NUR ---
Patient resting in bed with eyes closed Respirations even and unlabored on room air, no distress noted. Music continues to play in patient's room to provide comfort. Call light within reach. Bed alarm on for safety.
[2020-02-28 12:00] VITALS: BP 147/102
[2020-02-28] MEDS ORDERED: GOLYTELY 4L KIT PO ONE (12:00)
[2020-02-28] MEDS ORDERED: MAGNESIUM CITRATE SOLUTION 300 ML BTL PO ONE (12:30)
--- NOTE | 2020-02-28 12:34 | NUR ---
POC discussed with Dr. Fink Updated MD that Golytely will be initiated after patient awakens. Informed MD that patient is resting with eyes closed after having anxiety and unable to rest. MD verbalized understanding. Orders to be carried out after patient awakens.
--- NOTE | 2020-02-28 13:52 | NUR ---
NUTRITION ASSESSMENT NOTES Please refer to link notes of nutrition screen form filed under the intervention section of the plan of care for further details. Est. Energy Needs: 9484-3931 kcal (25-30 kcal/kg BW). Est. Protein Needs: 56-62 gms/day (1.0-1.1 gms/kg BW). Will continue to monitor pertinent labs and reassess nutrient need prn Addendum: 02/28/20 at [address] Amended: Links added.
--- NOTE | 2020-02-28 14:15 | NUR ---
Patient requesting pain medication Patient awake and requesting pain medication. Patient reports pain in the lower abdomen, 08/11. Patient to be medicated per MD order (refer to eMAR for further documentation).
--- NOTE | 2020-02-28 14:26 | NUR ---
Ilda initiated per MD order Medication education provided to patient. Patient verbalized understanding. Patient reports she will be able to consume the drink per MD order.
--- NOTE | 2020-02-28 15:05 | NUR ---
Patient encouraged to drink Golytely Patient verbalized understanding. Patient consumed some of the medication. Will continue to encourage intake of Golytely.
--- NOTE | 2020-02-28 15:21 | NUR ---
Patient encouraged to drink Golytely Patient verbalized understanding. Patient consumed some of the medication. Will continue to encourage intake of Golytely. Patient repositioned for comfort. Bed alarm on for safety. Call light within reach.
--- NOTE | 2020-02-28 16:14 | NUR ---
RE: Consents - contacted patient's sister, Eufemia. Spoke with Eufemia RE: ordered procedure and order to obtain consents. Patient is confused and unable to sign consents for self. Questions and concerns addressed. Eufemia stated "Okay, let me talk to her daughter Kelsey and call me back in about an hour." Consents placed in patient's hard chart.
[2020-02-28 17:00] VITALS: BP 132/87
--- NOTE | 2020-02-28 17:24 | NUR ---
Patient stating "I'm scared." - encouraging patient to drink Golytely Patient unable to further explain what she is scared of. Staff member is at bedside to provide comfort. Encouraged patient to drink Golytely. Patient refused. Encouraged patient to drink Mg Citrate per MD order. Patient consumed the drink and made a facial grimace and said "Oh no! No. Don't want!" Patient instructed to continue to drink Golytely per MD order. Patient verbalized understanding and consumed some more of the Golytely.
--- NOTE | 2020-02-28 18:06 | NUR ---
Patient notified staff - vomiting Patient had approximately 50ml of liquid emesis, no red noted. PRN anti-nausea medication administered per MD order. Provided patient with emesis bag.
--- NOTE | 2020-02-28 18:11 | NUR ---
RE: Mg Citrate, Golytely & Enema Patient has approximately 1/4 cup of Mg Citrate to consume. Patient has consumed approximately 3 cups of Golytely. Patient is refusing to consume Golytely. Patient is agreeing to consume Mg Citrate and actively drinking it. No BM has occurred. Educated patient on MD order for enema. Patient unable to comprehend administration of enema. This RN instructed patient on administration of enema and asked the patient if she understood. Patient stated "no."
--- NOTE | 2020-02-28 18:17 | NUR ---
Called patient's sister, Eufemia, RE: consents Eufemia stated "Her daughters don't want me to consent to anything because they don't know why you all are doing these tests on her. So call Kelsey and talk to her."
--- NOTE | 2020-02-28 18:30 | NUR ---
Called Kelsey, patient's daughter, RE: consents Updated Kelsey on patient's status and MD order to consent for procedure. Kelsey stated "I'm okay if she has the procedure done but the doctor hasn't called and told us anything about why this is being done. I want the doctor to call me tomorrow and tell us what is going on and why this is being done before they stick anything up my mama's butt and then I'll consent to it." RE: Enema Updated Kelsey on patient's order for enema and patient unable to comprehend procedure. Kelsey stated "let me talk to my auntie and then I will call my mama back in about 5 minutes to talk to her and try to explain it to her."
--- NOTE | 2020-02-28 18:38 | NUR ---
Patient assisted to chair at bedside - linen changed Patient assisted to chair at bedside with contact guard assistance. Patient tolerated well. Complete linen changed.
--- NOTE | 2020-02-28 18:42 | NUR ---
Mg Citrate completed. No BM. Encouraging patient to continue consuming Golytely. Patient refusing.
--- NOTE | 2020-02-28 19:05 | NUR ---
Patient had BM Solid, brown BM. Contact guard assistance provided with transfer from bed to BSC. Patient tolerated well. Patient returned to bed with no complications. Call light within reach. Continued to encourage patient to consume Golytely. Patient verbalized understanding.
--- NOTE | 2020-02-28 19:06 | NUR ---
Patient resting in bed with even and unlabored respirations, no distress noted. Fall precautions in place with call light within reach, bed alarm on for safety.
--- NOTE | 2020-02-28 19:30 | NUR ---
Care endorsed to JEAN MARIE Gaviria.
--- NOTE | 2020-02-28 19:30 | NUR ---
Opening Shift Note Assumed care of patient, awake and alert to self. No S/S of distress/SOB, complaints of pain to the abdomen, will medicate as ordered. Instructed patient on need to drink Golytely for colonoscopy tomorrow, she said she would try later. Lobo is in place, hung below bladder and draining yellow urine. Instructed and the on POC and to call for assist PRN, will continue to monitor for changes Q1hr and PRN.
[2020-02-28] MEDS: ONDANSETRON HCL 4 MG/2 ML VIAL IV PRN (20:16)
--- NOTE | 2020-02-28 20:46 | NUR ---
PAIN REASSESSMENT Patient is asleep in bed. No S/S of distress or pain. Will continue to monitor.
--- NOTE | 2020-02-28 21:00 | NUR ---
Encouraged patient to drink golytely, she shook her head and refused. "I will try later," she said. Explained to patient the need to drink the solution for the procedure, she verbalized understanding and said, "Later."
[2020-02-28 22:00] VITALS: BP 163/112
[2020-02-28] MEDS: traZODone HCL 50 MG TAB PO SCH (22:00)
--- NOTE | 2020-02-28 22:00 | NUR ---
Trazodone held Trazodone held per patient refusal, she said, "Nuh uh, I don't want it." Previous note stating patient and family do not want her to take the trazodone. Will continue to monitor.
[2020-02-28] MEDS: hydrALAZINE HCL 20 MG/ML VL IV PRN (22:18)
[2020-02-28] MEDS: ATORVASTATIN 20 MG TAB PO SCH (22:18)
--- NOTE | 2020-02-28 23:53 | NUR ---
PAIN Patient complains of pain to the abdomen, 10/0-10. It is "very bad." Morphine is not due for severe pain, patient was agreeable to take norco 10 instead. [place] 10 given, will reassess.
--- NOTE | 2020-02-28 23:54 | NUR ---
Patient assisted to the bedside commode and she had a watery, loose, brown BM. Patient cleaned and assisted back to bed. Repositioned for comfort. Call light is within reach, bed alarm is on. Will continue to monitor.
--- NOTE | 2020-02-29 00:50 | NUR ---
PAIN Reassessment Patient is asleep, she did not stir when name was called. Respirations are even and unlabored, no S/S of pain or distress noted, will continue to monitor.
[2020-02-29] MEDS: SOD CHL 0.9%/ KCL 20MEQ 1,000 ML IV SCH ×3 (01:30→17:30)
--- NOTE | 2020-02-29 03:30 | NUR ---
First tap water enema given. First tap water enema of 3 given. Patient had a watery, loose BM. Patient cleaned and repositioned for comfort. Call light is within reach, bed alarm is on, will continue to monitor.
--- NOTE | 2020-02-29 03:45 | NUR ---
Patient is refusing to drink the golytely. Encouraged patient to drink, explained the risks of not drinking it because it may delay the procedure in the morning, patient said, "No." Will continue to try to encourage the patient to drink the solution.
[2020-02-29] MEDS ORDERED: GOLYTELY 4L KIT PO ONE (04:00)
--- NOTE | 2020-02-29 04:30 | NUR ---
Second tap water enema given. Second tap water enema of 3 given. Patient had a watery BM almost clear in color. Patient cleaned and repositioned for comfort. Call light is within reach, bed alarm is on, will continue to monitor. Addendum: 02/29/20 at 0559 by ZAMZAM PATTERSON RN *COLOR WAS LOOSE AND WATERY, NOT ALMOST CLEAR.
[2020-02-29 05:00] VITALS: BP 150/93
--- NOTE | 2020-02-29 05:20 | NUR ---
Patient had a loose, watery brown BM. Patient cleaned and repositioned for comfort. Call light is within reach, bed alarm is on. Will continue to monitor.
--- NOTE | 2020-02-29 05:45 | NUR ---
Third tap water enema given 3 of 3 tap water enema given. Patient had a watery BM watery, loose brown BM. Patient cleaned and repositioned for comfort. Call light is within reach, bed alarm is on, will continue to monitor.
[2020-02-29] MEDS: GABAPENTIN 300 MG CAP PO SCH ×3 (06:00→22:10)
--- NOTE | 2020-02-29 06:00 | NUR ---
Patient is refusing to drink the golytely. Explained to patient the risks and benefits of drinking it. She said, "NO." Will continue to encourage patient to drink.
[2020-02-29] MEDS: metroNIDAZOLE 500MG/100ML 100 ML IV SCH ×3 (06:29→22:10)
--- NOTE | 2020-02-29 06:29 | NUR ---
Gabapentin held, patient is NPO for procedure this morning.
--- NOTE | 2020-02-29 06:45 | NUR ---
PAIN Morphine given for complaints of pain 10/0-10 to the abdomen. Patient states it is very bad. Phenergan given as prophylactic, patient said morphine makes her nauseous. Will continue to monitor.
[2020-02-29] MEDS: PROMETHAZINE HCL 25 MG/ML 1ML IV PRN ×3 (06:46→14:57)
[2020-02-29] MEDS: MORPHINE SULF INJ 2 MG/ML SYRINGE 1ML IV PRN ×4 (06:46→19:35)
--- NOTE | 2020-02-29 07:25 | NUR ---
Opening Shift Note Assumed care of patient, awake and alert. No S/S of distress/SOB or pain. Instructed on POC and to call for assist PRN, will continue to monitor for changes Q1hr and PRN. Bed locked in lowest position with two side rails up and call light in reach.
[2020-02-29 08:00] VITALS: BP 149/85
[2020-02-29] MEDS: levoFLOXacin 500MG 100 ML IV SCH (09:14)
[2020-02-29] MEDS: amLODIPine BESYLATE 5 MG TAB PO SCH (11:58)
[2020-02-29] MEDS: PANTOPRAZOLE 40 MG/10 ML VIAL INJ IV SCH (11:58)
[2020-02-29] MEDS: levETIRAcetam 500 MG TAB PO SCH ×2 (11:59→22:10)
[2020-02-29] MEDS: FLUoxetine HCL 20 MG CAP PO SCH (11:59)
[2020-02-29] MEDS: POTASSIUM CHL 20 Meq TABLET PO SCH (11:59)
[2020-02-29 12:00] VITALS: BP 150/92
--- NOTE | 2020-02-29 18:24 | NUR ---
SPOKE TO DAUGHTER OF LONNIE MCDUFFIE FOR CONSENT. PER JEREMY DAUGHTER SHE DOES NOT WANT HER MOM LONNIE MCDUFFIE TO HAVE ANY MORE ENEMAS. TELEPHONE CONSENT OBTAINED FOR COLONOSCOPY OBTAINED WITH NURSE PRICE.
--- NOTE | 2020-02-29 19:42 | NUR ---
RECEIVED PATIENT FROM DAY SHIFT RN. PATIENT RESTING IN BED. NO S/S OF DISTRESS NOTED. PATIENT MOANING FOR PAIN @ 10/10. MEDICATED PATIENT ORDERED. ENCOURAGED PATIENT TO DRINK GOLYTELY AND NPO AFTER MIDNIGHT FOR PROCEDURE TOMORROW. REORIENTED PATIENT TIME, PLACE, AND SITUATION. PATIENT COULD NOT REPEAT BACK. WILL TRY IT LATER.ORTEGA CATH IN PLACE DRAINING TO GRAVITY WITH CLEAR YELLOW URINE. POC INSTRUCTED AND ENCOURAGED PATIENT TO CALL FOR SHACTOR HELPER IF NEEDED. BED IN LOWEST POSITION WITH SIDE RAILS UP X 2. CALL ROJAS WITHIN REACH. ALARM ON. SITTER AT BEDSIDE FOR SAFETY. CONTINUE TO MONITOR FOR CHANGES Q1H AND PRN.
--- NOTE | 2020-02-29 20:10 | NUR ---
REASSESSED, PATIENT RESTING IN BED. NO S/S OF PAIN NOTED. CONTINUE TO MONITOR.
[2020-02-29 22:00] VITALS: BP 146/86
[2020-02-29] MEDS: ATORVASTATIN 20 MG TAB PO SCH (22:10)
[2020-02-29] MEDS: traZODone HCL 50 MG TAB PO SCH (22:11)
--- NOTE | 2020-02-29 22:20 | NUR ---
ORAL MEDICATION GIVEN ORDERED. PATIENT SWALLOWED WELL AT ONCE. ENCOURAGED PATIENT TO DRINK MORE GOLYTELY FOR PROCEDURE TOMORROW. PATIENT REFUSED FOR NOW. EDUCATED PATIENT THE IMPORTANCE OF GOLYTELY. PATIENT STILL REFUSED. WILL TRY IT LATER. CONTINUE TO MONITOR.
--- NOTE | 2020-03-01 00:04 | NUR ---
PATIENT C/O PAIN @ 09/10. MEDICATED PATIENT ORDERED. CONTINUE TO MONITOR.
--- NOTE | 2020-03-01 00:27 | NUR ---
REASSESSED, PATIENT SLEEPING. NO S/S OF PAIN NOTED. CONTINUE TO MONITOR.
--- NOTE | 2020-03-01 02:50 | NUR ---
PATIENT SLEEPING. NO S/S OF DISTRESS NOTED. SITTER AT BEDSIDE FOR SAFETY. CONTINUE TO MONITOR.
[2020-03-01] MEDS: MORPHINE SULF INJ 2 MG/ML SYRINGE 1ML IV PRN ×4 (04:00→13:55)
[2020-03-01] MEDS: SOD CHL 0.9%/ KCL 20MEQ 1,000 ML IV SCH ×3 (04:01→16:54)
--- NOTE | 2020-03-01 04:06 | NUR ---
PATIENT C/O PAIN @ 09/10. MEDICATED PATIENT ORDERED. CONTINUE TO MONITOR.
--- NOTE | 2020-03-01 04:30 | NUR ---
REASSESSED, PATIENT SLEEPING. NO S/S OF PAIN NOTED. CONTINUE TO MONITOR
[2020-03-01 05:00] VITALS: BP 151/106
[2020-03-01] MEDS: GABAPENTIN 300 MG CAP PO SCH ×2 (05:33→13:23)
[2020-03-01] MEDS: metroNIDAZOLE 500MG/100ML 100 ML IV SCH ×2 (05:33→13:23)
[2020-03-01] MEDS: hydrALAZINE HCL 20 MG/ML VL IV PRN (05:33)
[2020-03-01] MEDS: PROMETHAZINE HCL 25 MG/ML 1ML IV PRN ×3 (05:47→13:55)
--- NOTE | 2020-03-01 05:54 | NUR ---
TRIED TO START GOLYTELY, PATIENT C/O NAUSEA AFTER ONE CUP OF GOLYTELY, MEDICATED PATIENT ORDERED. CONTINUE TO MONITOR.
[2020-03-01 08:00] VITALS: BP 149/86
[2020-03-01 08:14] VITALS: BP 149/86
[2020-03-01] MEDS: levETIRAcetam 500 MG TAB PO SCH (08:58)
[2020-03-01] MEDS: POTASSIUM CHL 20 Meq TABLET PO SCH (08:58)
[2020-03-01] MEDS: amLODIPine BESYLATE 5 MG TAB PO SCH (08:59)
[2020-03-01] MEDS: FLUoxetine HCL 20 MG CAP PO SCH (09:01)
--- NOTE | 2020-03-01 09:20 | NUR ---
PT OFF UNIT TO PREOP FOR COLONOSCOPY VIA BED. VS WNL.
[2020-03-01] MEDS ORDERED: fentaNYL CITRATE 100 MCG/2 ML VL ONE (09:29)
[2020-03-01] MEDS ORDERED: MIDAZOLAM HCL 1MG/1ML-2 ML VIAL ONE (09:29)
[2020-03-01] MEDS ORDERED: MEPERIDINE HCL (25 MG/ML) 1ML VIAL ONE (09:29)
[2020-03-01] MEDS ORDERED: PROPOFOL 10 MG/ML 20 ML IV ONE (09:43)
[2020-03-01] MEDS ORDERED: HYDROmorphone HCL 2 MG/ML VL IV PRN (09:45)
[2020-03-01] MEDS ORDERED: ONDANSETRON HCL 4 MG/2 ML VIAL IV PRN (09:45)
[2020-03-01] MEDS ORDERED: LABETALOL HCL 5 MG/ML 4ML SYRINGE IV PRN (09:45)
[2020-03-01] MEDS ORDERED: MIDAZOLAM HCL 1MG/1ML-2 ML VIAL IV PRN (09:45)
[2020-03-01] MEDS ORDERED: MORPHINE SULFATE 4 MG/ML SYR/VIAL IV PRN (09:45)
[2020-03-01] MEDS ORDERED: ePHEDrine SULFATE 50 MG/ML AMP IV PRN (09:45)
[2020-03-01] MEDS ORDERED: HYOSCYAMINE SULF 0.125 MG ODT TAB PO PRN (10:30)
[2020-03-01] MEDS: levoFLOXacin 500MG 100 ML IV SCH (10:57)
[2020-03-01] MEDS: PANTOPRAZOLE 40 MG/10 ML VIAL INJ IV SCH (10:58)
--- NOTE | 2020-03-01 11:00 | NUR ---
BACK TO ROOM. S/P COLONOSCOPY VS: 97.6, 93, 16, 139/90, 0/10. WILL CONTINUE TO MONITOR.
[2020-03-01 13:00] VITALS: BP 144/97
--- NOTE | 2020-03-01 14:12 | NUR ---
Assessment Patient has a sitter and is refusing to talk I attempted to call sister and it went to voicemail. I will attempt to reach sister at another time.
[2020-03-01 16:19] VITALS: BP 146/92
--- NOTE | 2020-03-01 17:40 | NUR ---
F/C DISCONTINUE, PT TOLERATED WELL, WILL MONITOR FOR URINARY RETENTION.
[2020-03-01 17:56] VITALS: BP 135/80
--- NOTE | 2020-03-01 19:00 | NUR ---
PT REPORT URINATE W/O ANY DIFFICULTY.
[2020-03-01] MEDS ORDERED: PHENYLEPHRINE HCL 10 MG/ML VL IV ONE (19:09)
--- NOTE | 2020-03-01 19:15 | NUR ---
Discharge instructions given as ordered. Encourage to follow up with pcp as instructed. New prescription given to pt. All questions and concerns addressed. Patient verbalized understanding. Medication reconciliation form completed and copy given to patient. Home medications held in Pharmacy returned to patient. IV removed with catheter intact, pressure dressing applied. Telemetry unit returned to ICU. Patient taken to vehicle via wheelchair with all personal belongings, accompanied by staff and family member. No distress noted at time of departure.
--- NOTE | 2020-03-02 08:30 | NUR ---
Assessment I attempted to call patient family a few times on 03/01/2020 at 10:53, 11:31 and 13:07. Assessment not able to be completed prior to d/c.
== END 2020-03-01 19:10 | disposition home or self-care (01) | DRG 249 ==
LOC: EDBD 09:45 → ER 09:45 → TELE 09:46 → TELE-WESTW 21:00
PROVIDERS: ADMIT Internal Medicine; ATTEND Internal Medicine
PROC: 0DJD8ZZ Inspection of Lower Intestinal Tract, Via Natural or Artificial Opening Endoscopic (ICD-10-PCS; principal; 2020-03-01 09:34)
DX: K52.9 Noninfective gastroenteritis and colitis, unspecified (principal); G81.91 Hemiplegia, unspecified affecting right dominant side; E87.6 Hypokalemia; G40.909 Epilepsy, unspecified, not intractable, without status epilepticus; I25.10 Atherosclerotic heart disease of native coronary artery without angina pectoris; E78.5 Hyperlipidemia, unspecified; N18.9 Chronic kidney disease, unspecified; F41.9 Anxiety disorder, unspecified; F32.9 Major depressive disorder, single episode, unspecified; I12.9 Hypertensive chronic kidney disease with stage 1 through stage 4 chronic kidney disease, or unspecified chronic kidney disease; E78.00 Pure hypercholesterolemia, unspecified; I25.2 Old myocardial infarction; Z86.73 Personal history of transient ischemic attack (TIA), and cerebral infarction without residual deficits; Z79.899 Other long term (current) drug therapy; Z87.440 Personal history of urinary (tract) infections; Z83.3 Family history of diabetes mellitus; Z80.9 Family history of malignant neoplasm, unspecified; R73.9 Hyperglycemia, unspecified
CPT/HCPCS: 36415; 71045; 74176; 80053; 81001; 83690; 83735; 84484; 85025; 85610; 85730; 93005; 96361; 96365; 96367; 96375; C9113; G0378; J1956; J2250; J2405; J2704; J3490

== ENCOUNTER 2020-07-24 20:48 | Emergency (ER) | payer MEDICAID ==
[~2020-07-24] VITALS: Ht 170.2 cm; Wt 52.2 kg
[~2020-07-24 20:48] MED LIST changes: +TRAZ-181 PO
[2020-07-24] MEDS ORDERED: ONDANSETRON HCL 4 MG/2 ML VIAL IV ONE (21:45)
[2020-07-24] MEDS ORDERED: MORPHINE SULF INJ 2 MG/ML SYRINGE 1ML IV ONE (21:45)
[2020-07-24 22:10] LABS: Basophils # (auto) 0.1 10 ^3/uL (0-0.2); Basophils % (auto) 1.1 % (0.0-2.0); Eosinophils # (auto) 0.1 10 ^3/uL (0-0.8); Eosinophils % (auto) 2.1 % (0.0-7.0); Hematocrit 35.1 % (36.0-46.0); Hemoglobin 11.3 g/dL (12.2-16.2); Lymphocytes # (auto) 1.9 10 ^3/uL (0.4-5.4); Mean Corpuscular Hemoglobin 29.6 pg (28.0-32.0); Mean Corpuscular Hgb Conc. 32.2 g/dL (32.0-36.0); Mean Corpuscular Volume 91.9 fL (80.0-100.0); Monocytes # (auto) 0.3 10 ^3/uL (0-1.3); Monocytes % (auto) 4.8 % (0.0-12.0); Neutrophils # (auto) 3.5 10 ^3/uL (1.6-8.6); Nucleated Red Blood Cells % 0.1 %; Platelet Count (auto) 242 10^3/uL (140-450); Red Blood Cells 3.82 10^6/uL (4.0-5.20); White Blood Cell 5.8 10^3/uL (4.4-10.8)
[2020-07-24 22:30] LABS: Albumin 3.6 g/dL (3.4-5.0); Amylase 76 U/L (25-115); Anion Gap 4 (5-15); Blood Urea Nitrogen 8 mg/dL (7-18); Calcium 8.6 mg/dL (8.5-10.1); Carbon Dioxide 23 mmol/L (21-32); Chloride 118 mmol/L (98-107); Glucose 78 mg/dL (74-106); Lipase 33 U/L (73-393); Magnesium 2.3 mg/dL (1.6-2.6); Potassium 3.7 mmol/L (3.5-5.1); Sodium 145 mmol/L (136-145)
[2020-07-24 22:33] LABS: INR 0.99 (0.9-1.15); Partial Thromboplastin Time 24.8 sec (23.0-31.2)
[2020-07-24 22:41] LABS: Alanine Aminotransferase 42 U/L (13-56); Alkaline Phosphatase 139 U/L (45-117); Aspartate Aminotransferase 33 U/L (15-37); BUN/Creatinine Ratio 14.3; Bilirubin, Total 0.4 mg/dL (0.2-1.0); GFR African American 144 mL/min; GFR Non-African American 119 mL/min; Total Protein 7.5 g/dL (6.4-8.2)
[2020-07-25 01:46] LABS: Urine Bacteria NONE SEEN /hpf (None Seen); Urine Blood Negative /uL (Negative); Urine Hyaline Cast FEW /lpf (0 - 2); Urine Mucus FEW (None Seen); Urine Specific Gravity 1.015 (1.001-1.035); Urine WBC 2 /hpf (0 - 5)
[2020-07-25 06:00] VITALS: BP 111/75
== END 2020-07-25 09:25 | disposition home or self-care (01) ==
LOC: EDBD 20:48 → ER 20:57
DX: K58.0 Irritable bowel syndrome with diarrhea (principal)
CPT/HCPCS: 36415; 74176; 80053; 81001; 82150; 83690; 83735; 84484; 84702; 85025; 85610; 85730; 96374; 96375; 99285; J2270; J2405

== ENCOUNTER 2020-09-22 19:30 | Inpatient (IN) | payer MEDICAID ==
[~2020-09-22] VITALS: Ht 167.6 cm; Wt 46.2 kg
[2020-09-22] MEDS ORDERED: MORPHINE SULFATE 4 MG/ML SYR/VIAL IV ONE (20:15)
[2020-09-22] MEDS ORDERED: SODIUM CHLORIDE 0.9% 1,000 ML IV ONE (20:15)
[2020-09-22] MEDS ORDERED: ONDANSETRON HCL 4 MG/2 ML VIAL IV ONE (21:45)
[2020-09-22 22:15] LABS: Basophils # (auto) 0.1 10 ^3/uL (0-0.2); Basophils % (auto) 0.8 % (0.0-2.0); Eosinophils # (auto) 0 10 ^3/uL (0-0.8); Eosinophils % (auto) 0.2 % (0.0-7.0); Hematocrit 37.3 % (36.0-46.0); Hemoglobin 12.3 g/dL (12.2-16.2); Lymphocytes # (auto) 1.4 10 ^3/uL (0.4-5.4); Lymphocytes % (auto) 14.6 % (10.0-50.0); Mean Corpuscular Hemoglobin 30.1 pg (28.0-32.0); Mean Corpuscular Volume 91.5 fL (80.0-100.0); Monocytes # (auto) 0.3 10 ^3/uL (0-1.3); Monocytes % (auto) 2.7 % (0.0-12.0); Neutrophils # (auto) 8.1 10 ^3/uL (1.6-8.6); Neutrophils % (auto) 81.7 % (37.0-80.0); Platelet Count (auto) 217 10^3/uL (140-450); Red Blood Cells 4.07 10^6/uL (4.0-5.20); Red Cell Distribution Width 14.7 % (11.8-14.3); White Blood Cell 9.9 10^3/uL (4.4-10.8)
[2020-09-22 22:28] LABS: Albumin 4.3 g/dL (3.4-5.0); Amylase 120 U/L (25-115); Anion Gap 3 (5-15); Blood Urea Nitrogen 6 mg/dL (7-18); Calcium 8.8 mg/dL (8.5-10.1); Carbon Dioxide 24 mmol/L (21-32); Chloride 112 mmol/L (98-107); Glucose 135 mg/dL (74-106); Lipase 80 U/L (73-393); Potassium 3.6 mmol/L (3.5-5.1); Sodium 139 mmol/L (136-145)
[2020-09-22 22:32] LABS: Lactic Acid w/Reflex 2.5 mmol/L (0.4-2.0)
[2020-09-22 22:34] LABS: Alanine Aminotransferase 37 U/L (13-56); Alkaline Phosphatase 119 U/L (45-117); Aspartate Aminotransferase 28 U/L (15-37); BUN/Creatinine Ratio 9.5; Bilirubin, Total 0.4 mg/dL (0.2-1.0); GFR African American 126 mL/min; GFR Non-African American 104 mL/min; Total Protein 8.6 g/dL (6.4-8.2)
[2020-09-22] MEDS ORDERED: LORazepam 2MG/ML-1ML VIAL IV ONE (23:00)
[2020-09-22] MEDS ORDERED: PIPERACILLIN-TAZOB 3.375GM 100 ML IV ONE (23:00)
[2020-09-22] MEDS ORDERED: VANCOMYCIN 1GM/250ML 250 ML IV ONE (23:00)
[2020-09-22] MEDS ORDERED: SODIUM CHLORIDE 0.9% 1,550 ML IV ONE (23:00)
[2020-09-23] MEDS ORDERED: ONDANSETRON HCL 4 MG/2 ML VIAL IV ONE (06:15)
[2020-09-23] MEDS ORDERED: MORPHINE SULF INJ 2 MG/ML SYRINGE 1ML IV ONE (06:15)
[2020-09-23] MEDS ORDERED: ACETAMINOPHEN 325 MG TAB PO PRN (06:30)
[2020-09-23] MEDS ORDERED: DOCUSATE SOD 100 MG CAP PO PRN (06:30)
[2020-09-23] MEDS ORDERED: MORPHINE SULF INJ 2 MG/ML SYRINGE 1ML IV PRN (06:30)
[2020-09-23] MEDS ORDERED: NITROGLYCERIN 0.4 MG SL TAB SL PRN (06:30)
[2020-09-23] MEDS ORDERED: VANCOMYCIN PER PHARMACY 0 MG IV SCH (06:30)
[2020-09-23] MEDS: D5W/SOD CHL 0.45% 1,000 ML IV SCH ×2 (07:00→19:55)
[2020-09-23] MEDS ORDERED: hydrALAZINE HCL 20 MG/ML VL IV ONE (07:00)
[2020-09-23] MEDS ORDERED: hydrALAZINE HCL 10 MG TAB PO ONE (07:45)
[2020-09-23 07:51] LABS: Hemoglobin 13.6 g/dL (12.2-16.2); Lymphocytes % (auto) 9.5 % (10.0-50.0); Monocytes # (auto) 0.1 10 ^3/uL (0-1.3); Platelet Count (auto) 193 10^3/uL (140-450)
[2020-09-23 07:55] LABS: Basophils # (auto) 0 10 ^3/uL (0-0.2); Basophils % (auto) 0.1 % (0.0-2.0); Eosinophils # (auto) 0 10 ^3/uL (0-0.8); Hematocrit 41.2 % (36.0-46.0); Mean Corpuscular Hemoglobin 29.5 pg (28.0-32.0); Mean Corpuscular Volume 89.6 fL (80.0-100.0); Monocytes % (auto) 1.3 % (0.0-12.0); Neutrophils % (auto) 89.1 % (37.0-80.0); Nucleated Red Blood Cells % 0.2 %; Red Cell Distribution Width 14.4 % (11.8-14.3); White Blood Cell 10.1 10^3/uL (4.4-10.8)
[2020-09-23 07:57] LABS: Albumin 4.4 g/dL (3.4-5.0); Calcium 8.7 mg/dL (8.5-10.1)
[2020-09-23 08:04] LABS: BUN/Creatinine Ratio 8.9; Bilirubin, Total 0.5 mg/dL (0.2-1.0); Total Protein 9.1 g/dL (6.4-8.2)
[2020-09-23 08:07] LABS: Potassium 2.9 mmol/L (3.5-5.1)
[2020-09-23] MEDS: ONDANSETRON HCL 4 MG/2 ML VIAL IV PRN ×3 (09:04→20:47)
[2020-09-23] MEDS: PANTOPRAZOLE 40 MG/10 ML VIAL INJ IV SCH (09:44)
[2020-09-23] MEDS: ENOXAPARIN SOD 30 MG/0.3 ML SYRINGE SC SCH (09:45)
[2020-09-23] MEDS: amLODIPine BESYLATE 5 MG TAB PO SCH (10:11)
[2020-09-23] MEDS: CLOPIDOGREL BISULFATE 75 MG TAB PO SCH (10:12)
[2020-09-23] MEDS: FLUoxetine HCL 20 MG CAP PO SCH (10:12)
[2020-09-23] MEDS ORDERED: LABETALOL HCL 5 MG/ML 4ML SYRINGE IV PRN (11:00)
[2020-09-23] MEDS ORDERED: POTASSIUM CHLORIDE 40 MEQ, LIDOCAINE 1% (LOCAL ANESTH.) 4 ML in SODIUM CHL 0.9% 250 ML IV ONE (11:30)
[2020-09-23] MEDS ORDERED: METOPROLOL TARTRATE 25 MG TAB PO ONE (11:45)
[2020-09-23] MEDS: HYDROcodone-ACET 5/325MG TAB PO PRN ×3 (12:34→20:47)
[2020-09-23] MEDS: metroNIDAZOLE 500MG/100ML 100 ML IV SCH ×2 (13:58→22:29)
[2020-09-23] MEDS ORDERED: PIPERACILLIN-TAZOB 3.375GM 100 ML IV SCH (14:00)
[2020-09-23] MEDS: levoFLOXacin 500MG 100 ML IV SCH (14:52)
[2020-09-23 16:15] VITALS: BP 139/96
[2020-09-23 16:33] LABS: Urine Bacteria FEW /hpf (None Seen); Urine Blood 2+ /uL (Negative); Urine WBC 23 /hpf (0 - 5)
[2020-09-23] MEDS ORDERED: VANCOMYCIN 750mg/250ml 250 ML IV SCH (18:00)
[2020-09-23] MEDS ORDERED: LORazepam 2MG/ML-1ML VIAL IV PRN (19:45)
[2020-09-23 22:00] VITALS: BP 149/96
[2020-09-23] MEDS: traZODone HCL 50 MG TAB PO SCH (22:30)
[2020-09-23] MEDS: ATORVASTATIN 20 MG TAB PO SCH (22:30)
[2020-09-23] MEDS: METOPROLOL TARTRATE 25 MG TAB PO SCH (22:31)
[2020-09-24] MEDS: HYDROcodone-ACET 5/325MG TAB PO PRN ×4 (03:24→22:00)
[2020-09-24 05:00] VITALS: BP 146/91
[2020-09-24] MEDS: MORPHINE SULF INJ 2 MG/ML SYRINGE 1ML IV PRN ×5 (05:45→20:39)
[2020-09-24] MEDS: metroNIDAZOLE 500MG/100ML 100 ML IV SCH ×3 (06:12→22:30)
[2020-09-24 06:56] LABS: Basophils # (auto) 0.1 10 ^3/uL (0-0.2); Basophils % (auto) 0.8 % (0.0-2.0); Eosinophils # (auto) 0 10 ^3/uL (0-0.8); Eosinophils % (auto) 0.1 % (0.0-7.0); Hematocrit 45.3 % (36.0-46.0); Hemoglobin 14.9 g/dL (12.2-16.2); Lymphocytes % (auto) 15.3 % (10.0-50.0); Mean Corpuscular Hgb Conc. 32.8 g/dL (32.0-36.0); Mean Corpuscular Volume 88.5 fL (80.0-100.0); Monocytes # (auto) 0.4 10 ^3/uL (0-1.3); Monocytes % (auto) 2.7 % (0.0-12.0); Neutrophils # (auto) 10.8 10 ^3/uL (1.6-8.6); Neutrophils % (auto) 81.1 % (37.0-80.0); Platelet Count (auto) 235 10^3/uL (140-450); Red Blood Cells 5.12 10^6/uL (4.0-5.20); Red Cell Distribution Width 14.6 % (11.8-14.3); White Blood Cell 13.3 10^3/uL (4.4-10.8)
[2020-09-24 07:00] LABS: Calcium 9.4 mg/dL (8.5-10.1); Potassium 3.1 mmol/L (3.5-5.1)
[2020-09-24 07:05] LABS: Albumin 4.2 g/dL (3.4-5.0); BUN/Creatinine Ratio 11.3; Bilirubin, Total 0.7 mg/dL (0.2-1.0)
[2020-09-24] MEDS: ONDANSETRON HCL 4 MG/2 ML VIAL IV PRN ×3 (08:24→20:33)
[2020-09-24] MEDS: D5W/SOD CHL 0.45% 1,000 ML IV SCH ×2 (09:04→22:30)
[2020-09-24 09:12] VITALS: BP 146/107
[2020-09-24] MEDS: PANTOPRAZOLE 40 MG/10 ML VIAL INJ IV SCH (09:50)
[2020-09-24] MEDS: amLODIPine BESYLATE 5 MG TAB PO SCH (09:51)
[2020-09-24] MEDS: METOPROLOL TARTRATE 25 MG TAB PO SCH ×2 (09:52→21:43)
[2020-09-24] MEDS: FLUoxetine HCL 20 MG CAP PO SCH (09:52)
[2020-09-24] MEDS: ENOXAPARIN SOD 30 MG/0.3 ML SYRINGE SC SCH (09:52)
[2020-09-24] MEDS: CLOPIDOGREL BISULFATE 75 MG TAB PO SCH (09:52)
[2020-09-24 13:00] VITALS: BP 153/101
[2020-09-24] MEDS: levoFLOXacin 500MG 100 ML IV SCH (13:12)
[2020-09-24] MEDS ORDERED: LISINOPRIL 10 MG TAB PO ONE (13:15)
[2020-09-24] MEDS ORDERED: POTASSIUM CHLORIDE 40 MEQ, LIDOCAINE 1% (LOCAL ANESTH.) 4 ML in SODIUM CHL 0.9% 250 ML IV ONE (13:15)
[2020-09-24 16:58] VITALS: BP 141/93
[2020-09-24] MEDS: ATORVASTATIN 20 MG TAB PO SCH (21:42)
[2020-09-24] MEDS: traZODone HCL 50 MG TAB PO SCH (21:42)
[2020-09-24 22:03] VITALS: BP 137/93
[2020-09-25] MEDS: ONDANSETRON HCL 4 MG/2 ML VIAL IV PRN ×4 (03:46→17:46)
[2020-09-25] MEDS: MORPHINE SULF INJ 2 MG/ML SYRINGE 1ML IV PRN ×5 (03:46→21:48)
[2020-09-25 05:00] VITALS: BP 158/96
[2020-09-25] MEDS: metroNIDAZOLE 500MG/100ML 100 ML IV SCH ×3 (05:52→21:59)
[2020-09-25 08:19] VITALS: BP 153/90
[2020-09-25] MEDS: PANTOPRAZOLE 40 MG/10 ML VIAL INJ IV SCH (11:17)
[2020-09-25] MEDS: amLODIPine BESYLATE 5 MG TAB PO SCH (11:17)
[2020-09-25] MEDS: METOPROLOL TARTRATE 25 MG TAB PO SCH ×2 (11:17→22:00)
[2020-09-25] MEDS: CLOPIDOGREL BISULFATE 75 MG TAB PO SCH (11:18)
[2020-09-25] MEDS: LISINOPRIL 10 MG TAB PO SCH (11:18)
[2020-09-25] MEDS: ENOXAPARIN SOD 30 MG/0.3 ML SYRINGE SC SCH (11:18)
[2020-09-25] MEDS: FLUoxetine HCL 20 MG CAP PO SCH (11:18)
[2020-09-25] MEDS: HYDROcodone-ACET 5/325MG TAB PO PRN ×2 (11:19→15:43)
[2020-09-25] MEDS: D5W/SOD CHL 0.45% 1,000 ML IV SCH ×2 (12:14→22:42)
[2020-09-25] MEDS: levoFLOXacin 500MG 100 ML IV SCH (12:14)
[2020-09-25 14:41] VITALS: BP 132/93
[2020-09-25 16:31] VITALS: BP 136/88
[2020-09-25] MEDS: traZODone HCL 50 MG TAB PO SCH (21:59)
[2020-09-25] MEDS: ATORVASTATIN 20 MG TAB PO SCH (21:59)
[2020-09-25 22:00] VITALS: BP 135/77
[2020-09-26] MEDS: MORPHINE SULF INJ 2 MG/ML SYRINGE 1ML IV PRN ×5 (03:14→22:44)
[2020-09-26 05:00] VITALS: BP 140/96
[2020-09-26] MEDS ORDERED: MAGNESIUM CITRATE SOLUTION 300 ML BTL PO ONE (06:00)
[2020-09-26] MEDS: metroNIDAZOLE 500MG/100ML 100 ML IV SCH ×3 (06:29→22:43)
[2020-09-26] MEDS: ONDANSETRON HCL 4 MG/2 ML VIAL IV PRN ×4 (07:35→22:44)
[2020-09-26] MEDS ORDERED: diphenhdrAMINE HCL 50 MG/1 ML VL ONE (08:49)
[2020-09-26] MEDS ORDERED: SODIUM CHLORIDE LOCK 10 ML ONE (08:49)
[2020-09-26 09:00] VITALS: BP 141/85
[2020-09-26 09:37] VITALS: BP 142/98
[2020-09-26] MEDS: PANTOPRAZOLE 40 MG/10 ML VIAL INJ IV SCH (09:58)
[2020-09-26] MEDS: ENOXAPARIN SOD 30 MG/0.3 ML SYRINGE SC SCH (10:00)
[2020-09-26] MEDS: CLOPIDOGREL BISULFATE 75 MG TAB PO SCH (10:00)
[2020-09-26 10:05] LABS: Hematocrit 49.6 % (36.0-46.0); Hemoglobin 16.6 g/dL (12.2-16.2); Mean Corpuscular Hemoglobin 30.1 pg (28.0-32.0); Mean Corpuscular Hgb Conc. 33.5 g/dL (32.0-36.0); Mean Corpuscular Volume 89.7 fL (80.0-100.0); Platelet Count (auto) 241 10^3/uL (140-450); Red Blood Cells 5.53 10^6/uL (4.0-5.20); Red Cell Distribution Width 14.2 % (11.8-14.3); White Blood Cell 8.2 10^3/uL (4.4-10.8)
[2020-09-26 10:17] LABS: Band Neutrophils % (manual) 0; Basophils % (manual) 0 (0.0-2.0); Blast Cells 0; Eosinophils % (manual) 0 (0-7); Metamyelocytes % 0; Myelocytes % 0; Promyelocytes % 0; Reactive Lymphocytes 0
[2020-09-26] MEDS: METOPROLOL TARTRATE 25 MG TAB PO SCH ×2 (10:18→20:49)
[2020-09-26] MEDS: amLODIPine BESYLATE 5 MG TAB PO SCH (10:18)
[2020-09-26 10:19] LABS: INR 1.06 (0.9-1.15); Partial Thromboplastin Time 26.8 sec (23.0-31.2)
[2020-09-26] MEDS: LISINOPRIL 10 MG TAB PO SCH (10:19)
[2020-09-26] MEDS: FLUoxetine HCL 20 MG CAP PO SCH (10:19)
[2020-09-26 10:36] LABS: BUN/Creatinine Ratio 13.7; Calcium 9.3 mg/dL (8.5-10.1)
[2020-09-26 10:42] LABS: Potassium 2.7 mmol/L (3.5-5.1)
[2020-09-26 10:43] LABS: Lymphocytes % (manual) 32 (10.0-50.0); Monocytes % (manual) 4 (0-12)
[2020-09-26] MEDS: levoFLOXacin 500MG 100 ML IV SCH (10:54)
[2020-09-26] MEDS ORDERED: POTASSIUM CHLORIDE 80 MEQ, LIDOCAINE 1% (LOCAL ANESTH.) 6 ML in SODIUM CHL 0.9% 500 ML IV ONE (12:15)
[2020-09-26 13:00] VITALS: BP 140/104
[2020-09-26] MEDS: D5W/SOD CHL 0.45% 1,000 ML IV SCH (14:30)
[2020-09-26] MEDS ORDERED: FLEET ENEMA(ADULT) 135 ML PR ONE (14:45)
[2020-09-26] MEDS: MIDAZOLAM HCL 5 MG/ML-1ML VIAL ONE ×2 (16:46→16:49)
[2020-09-26] MEDS: fentaNYL CITRATE 100 MCG/2 ML VL ONE ×2 (16:46→16:49)
[2020-09-26] MEDS: HYDROcodone-ACET 5/325MG TAB PO PRN (20:47)
[2020-09-26] MEDS: DOCUSATE SOD 100 MG CAP PO SCH (20:49)
[2020-09-26] MEDS: ATORVASTATIN 20 MG TAB PO SCH (20:49)
[2020-09-26] MEDS: traZODone HCL 50 MG TAB PO SCH (20:49)
[2020-09-26 22:17] VITALS: BP 120/86
[2020-09-27] MEDS: MORPHINE SULF INJ 2 MG/ML SYRINGE 1ML IV PRN ×5 (03:14→19:45)
[2020-09-27] MEDS: ONDANSETRON HCL 4 MG/2 ML VIAL IV PRN ×4 (03:14→19:45)
[2020-09-27] MEDS: D5W/SOD CHL 0.45% 1,000 ML IV SCH ×2 (04:55→18:17)
[2020-09-27 05:00] VITALS: BP 130/80
[2020-09-27] MEDS: metroNIDAZOLE 500MG/100ML 100 ML IV SCH ×3 (05:56→21:37)
[2020-09-27] MEDS: HYDROcodone-ACET 5/325MG TAB PO PRN (06:10)
[2020-09-27 08:33] LABS: Basophils # (auto) 0 10 ^3/uL (0-0.2); Basophils % (auto) 0.4 % (0.0-2.0); Eosinophils # (auto) 0 10 ^3/uL (0-0.8); Eosinophils % (auto) 0.1 % (0.0-7.0); Hematocrit 41.6 % (36.0-46.0); Hemoglobin 13.8 g/dL (12.2-16.2); Lymphocytes # (auto) 1.5 10 ^3/uL (0.4-5.4); Lymphocytes % (auto) 29.1 % (10.0-50.0); Mean Corpuscular Hemoglobin 29.5 pg (28.0-32.0); Mean Corpuscular Hgb Conc. 33.1 g/dL (32.0-36.0); Mean Corpuscular Volume 89.1 fL (80.0-100.0); Monocytes # (auto) 0.4 10 ^3/uL (0-1.3); Monocytes % (auto) 7.9 % (0.0-12.0); Neutrophils # (auto) 3.3 10 ^3/uL (1.6-8.6); Neutrophils % (auto) 62.5 % (37.0-80.0); Nucleated Red Blood Cells % 0.1 %; Platelet Count (auto) 191 10^3/uL (140-450); Red Blood Cells 4.67 10^6/uL (4.0-5.20); White Blood Cell 5.3 10^3/uL (4.4-10.8)
[2020-09-27 08:41] LABS: Albumin 3.9 g/dL (3.4-5.0); Calcium 8.6 mg/dL (8.5-10.1); Potassium 3.4 mmol/L (3.5-5.1)
[2020-09-27 08:47] LABS: Bilirubin, Total 0.6 mg/dL (0.2-1.0); Total Protein 7.7 g/dL (6.4-8.2)
[2020-09-27 09:00] VITALS: BP 141/93
[2020-09-27 09:21] LABS: BUN/Creatinine Ratio 11.9
[2020-09-27] MEDS: PANTOPRAZOLE 40 MG/10 ML VIAL INJ IV SCH (09:58)
[2020-09-27] MEDS: DOCUSATE SOD 100 MG CAP PO SCH ×2 (09:59→21:38)
[2020-09-27] MEDS: ENOXAPARIN SOD 30 MG/0.3 ML SYRINGE SC SCH (09:59)
[2020-09-27] MEDS: FLUoxetine HCL 20 MG CAP PO SCH (09:59)
[2020-09-27] MEDS ORDERED: POTASSIUM CHLORIDE 40 MEQ, LIDOCAINE 1% (LOCAL ANESTH.) 4 ML in SODIUM CHL 0.9% 250 ML IV ONE (10:00)
[2020-09-27] MEDS: amLODIPine BESYLATE 5 MG TAB PO SCH (10:00)
[2020-09-27] MEDS: METOPROLOL TARTRATE 25 MG TAB PO SCH ×2 (10:00→21:39)
[2020-09-27] MEDS: CLOPIDOGREL BISULFATE 75 MG TAB PO SCH (10:00)
[2020-09-27] MEDS: LISINOPRIL 10 MG TAB PO SCH (10:01)
[2020-09-27] MEDS: levoFLOXacin 500MG 100 ML IV SCH (10:30)
[2020-09-27 13:00] VITALS: BP 126/89
[2020-09-27 16:43] VITALS: BP 135/94
[2020-09-27] MEDS: traZODone HCL 50 MG TAB PO SCH (21:38)
[2020-09-27] MEDS: ATORVASTATIN 20 MG TAB PO SCH (21:39)
[2020-09-27 22:00] VITALS: BP 138/88
[2020-09-28] MEDS: MORPHINE SULF INJ 2 MG/ML SYRINGE 1ML IV PRN ×2 (02:10→06:52)
[2020-09-28] MEDS: ONDANSETRON HCL 4 MG/2 ML VIAL IV PRN ×2 (02:10→06:52)
[2020-09-28 06:12] VITALS: BP 133/89
[2020-09-28] MEDS: D5W/SOD CHL 0.45% 1,000 ML IV SCH (06:30)
[2020-09-28] MEDS: metroNIDAZOLE 500MG/100ML 100 ML IV SCH (06:51)
[2020-09-28] MEDS: ENOXAPARIN SOD 30 MG/0.3 ML SYRINGE SC SCH (09:20)
[2020-09-28] MEDS: PANTOPRAZOLE 40 MG/10 ML VIAL INJ IV SCH (09:21)
[2020-09-28] MEDS: DOCUSATE SOD 100 MG CAP PO SCH (09:21)
[2020-09-28] MEDS: FLUoxetine HCL 20 MG CAP PO SCH (09:22)
[2020-09-28] MEDS: CLOPIDOGREL BISULFATE 75 MG TAB PO SCH (09:22)
[2020-09-28] MEDS: amLODIPine BESYLATE 5 MG TAB PO SCH (09:22)
[2020-09-28] MEDS: LISINOPRIL 10 MG TAB PO SCH (09:22)
[2020-09-28] MEDS: METOPROLOL TARTRATE 25 MG TAB PO SCH (09:23)
[2020-09-28] MEDS: levoFLOXacin 500MG 100 ML IV SCH (10:00)
[2020-09-28 10:02] LABS: BUN/Creatinine Ratio 6.7; Calcium 8.8 mg/dL (8.5-10.1)
[2020-09-28 10:08] LABS: Potassium 2.8 mmol/L (3.5-5.1)
== END 2020-09-28 11:30 | disposition home or self-care (01) | DRG 249 ==
LOC: EDBD 19:30 → EDUNIT# 19:30 → ER 19:34 → TELE 19:35 → TELE-WESTW 09-23 16:01
PROVIDERS: ADMIT Nurse Practitioner Family; ATTEND Internal Medicine
PROC: 0DBN8ZX Excision of Sigmoid Colon, Via Natural or Artificial Opening Endoscopic, Diagnostic (ICD-10-PCS; principal; 2020-09-26 16:42)
DX: K52.9 Noninfective gastroenteritis and colitis, unspecified (principal); F11.20 Opioid dependence, uncomplicated; F41.9 Anxiety disorder, unspecified; E87.6 Hypokalemia; N18.9 Chronic kidney disease, unspecified; F32.9 Major depressive disorder, single episode, unspecified; E78.5 Hyperlipidemia, unspecified; G40.909 Epilepsy, unspecified, not intractable, without status epilepticus; I25.10 Atherosclerotic heart disease of native coronary artery without angina pectoris; Z87.440 Personal history of urinary (tract) infections; I25.2 Old myocardial infarction; I69.354 Hemiplegia and hemiparesis following cerebral infarction affecting left non-dominant side; Z91.19 Patient's noncompliance with other medical treatment and regimen; Z79.899 Other long term (current) drug therapy; I16.0 Hypertensive urgency; I12.9 Hypertensive chronic kidney disease with stage 1 through stage 4 chronic kidney disease, or unspecified chronic kidney disease
CPT/HCPCS: 36415; 45331; 71045; 74176; 80048; 80053; 81001; 82150; 82962; 83605; 83690; 83735; 83880; 84484; 85007; 85025; 85027; 85610; 85730; 86850; 86900; 86901; 87040; 87086; 93005; 97110; 97116; 97163; 97530; C9113; G0378; J1956; J2001; J2250; J2405; J2543; J3490; J7060

== ENCOUNTER 2021-02-09 07:50 | Emergency (ER) | payer MEDICAID ==
[~2021-02-09] VITALS: Ht 167.6 cm; Wt 63.5 kg
[~2021-02-09 07:50] MED LIST changes: +AMLO-489 PO; -AMLO5TAB15 PO; -CLOP75TA41 PO; +CLOP75TA70 PO
[2021-02-09] MEDS ORDERED: PROCHLORPERAZINE EDISYLATE 5 MG/ML 2ML VIAL IV ONE (08:15)
[2021-02-09] MEDS ORDERED: MORPHINE SULFATE 4 MG/ML SYR/VIAL IV ONE (08:15)
[2021-02-09 08:43] LABS: Basophils # (auto) 0 10 ^3/uL (0-0.2); Basophils % (auto) 0.6 % (0.0-2.0); Eosinophils # (auto) 0 10 ^3/uL (0-0.8); Eosinophils % (auto) 0.2 % (0.0-7.0); Hematocrit 39.7 % (36.0-46.0); Hemoglobin 13.2 g/dL (12.2-16.2); Lymphocytes # (auto) 1.7 10 ^3/uL (0.4-5.4); Lymphocytes % (auto) 20.9 % (10.0-50.0); Mean Corpuscular Hemoglobin 29.6 pg (28.0-32.0); Mean Corpuscular Hgb Conc. 33.2 g/dL (32.0-36.0); Mean Corpuscular Volume 89.3 fL (80.0-100.0); Monocytes # (auto) 0.2 10 ^3/uL (0-1.3); Monocytes % (auto) 2.6 % (0.0-12.0); Neutrophils % (auto) 75.7 % (37.0-80.0); Nucleated Red Blood Cells % 0.1 %; Red Blood Cells 4.44 10^6/uL (4.0-5.20); Red Cell Distribution Width 14.3 % (11.8-14.3); White Blood Cell 7.9 10^3/uL (4.4-10.8)
[2021-02-09 09:01] LABS: Albumin 4.2 g/dL (3.4-5.0); Calcium 9.2 mg/dL (8.5-10.1); Potassium 3.3 mmol/L (3.5-5.1)
[2021-02-09 09:04] LABS: BUN/Creatinine Ratio 10.1; Bilirubin, Total 0.3 mg/dL (0.2-1.0); Total Protein 9.4 g/dL (6.4-8.2)
[2021-02-09 09:09] LABS: Magnesium 2.2 mg/dL (1.6-2.6)
[2021-02-09 13:06] VITALS: BP 149/94
== END 2021-02-09 13:25 | disposition home or self-care (01) ==
LOC: ER 07:50 → EDBD 07:50 → ER 13:25
DX: R10.84 Generalized abdominal pain (principal); R11.2 Nausea with vomiting, unspecified; N18.9 Chronic kidney disease, unspecified; E78.5 Hyperlipidemia, unspecified; R51.9 Headache, unspecified; I25.2 Old myocardial infarction; Z86.73 Personal history of transient ischemic attack (TIA), and cerebral infarction without residual deficits; Z20.822 Contact with and (suspected) exposure to COVID-19
CPT/HCPCS: 36415; 70450; 74176; 80053; 83690; 83735; 84484; 85025; 87426; 93005; 96374; 96375; 99285; J0780; J2270

== ENCOUNTER 2021-11-16 05:57 | Emergency (ER) | payer MEDICAID ==
[~2021-11-16] VITALS: Ht 167.6 cm; Wt 59.0 kg
[2021-11-16 07:51] LABS: Basophils # (auto) 0.1 10 ^3/uL (0-0.2); Basophils % (auto) 0.5 % (0.0-2.0); Eosinophils # (auto) 0 10 ^3/uL (0-0.8); Eosinophils % (auto) 0.4 % (0.0-7.0); Hematocrit 41.6 % (36.0-46.0); Hemoglobin 13.4 g/dL (12.2-16.2); Lymphocytes # (auto) 1.7 10 ^3/uL (0.4-5.4); Lymphocytes % (auto) 17.8 % (10.0-50.0); Mean Corpuscular Hemoglobin 29.1 pg (28.0-32.0); Mean Corpuscular Hgb Conc. 32.1 g/dL (32.0-36.0); Mean Corpuscular Volume 90.6 fL (80.0-100.0); Monocytes # (auto) 0.3 10 ^3/uL (0-1.3); Monocytes % (auto) 3.3 % (0.0-12.0); Neutrophils # (auto) 7.6 10 ^3/uL (1.6-8.6); Nucleated Red Blood Cells % 0.2 %; Red Cell Distribution Width 13.7 % (11.8-14.3); White Blood Cell 9.8 10^3/uL (4.4-10.8)
[2021-11-16 08:07] LABS: Albumin 4.4 g/dL (3.4-5.0); Calcium 9.7 mg/dL (8.5-10.1); Potassium 3.5 mmol/L (3.5-5.1)
[2021-11-16 08:12] LABS: Bilirubin, Total 0.3 mg/dL (0.2-1.0); Total Protein 9.4 g/dL (6.4-8.2)
[2021-11-16] MEDS ORDERED: MORPHINE SULFATE 4 MG/ML SYR/VIAL IV ONE (08:45)
[2021-11-16] MEDS ORDERED: ONDANSETRON HCL 4 MG/2 ML VIAL IV ONE (08:45)
[2021-11-16 09:00] VITALS: BP 199/109
[2021-11-16] MEDS ORDERED: PROMETHAZINE HCL 25 MG/ML 1ML IV ONE (09:30)
[2021-11-16] MEDS ORDERED: LABETALOL HCL 5 MG/ML 4ML SYRINGE IV ONE (10:30)
[2021-11-16] MEDS ORDERED: METOCLOPRAMIDE HCL 5MG/ml INJ 2ml VIAL IV ONE (10:45)
== END 2021-11-16 10:58 | disposition home or self-care (01) ==
LOC: EDBD 05:57 → ER 05:57
DX: I16.0 Hypertensive urgency (principal); I10 Essential (primary) hypertension; G89.4 Chronic pain syndrome; Z86.73 Personal history of transient ischemic attack (TIA), and cerebral infarction without residual deficits; E78.5 Hyperlipidemia, unspecified
CPT/HCPCS: 36415; 71045; 74018; 80053; 83690; 84484; 85025; 93005; 96374; 96375; 99285; J2550; J2765; J3490

== ENCOUNTER 2022-01-30 08:13 | Emergency (ER) | payer MEDICAID ==
[~2022-01-30] VITALS: Ht 162.6 cm; Wt 59.0 kg
[2022-01-30 08:18] VITALS: BP 177/103
[2022-01-30] MEDS ORDERED: SODIUM CHLORIDE 0.9% 1,000 ML IVB ONE (09:00)
[2022-01-30] MEDS ORDERED: ONDANSETRON HCL 4 MG/2 ML VIAL IV ONE (09:00)
[2022-01-30 09:35] LABS: Basophils # (auto) 0.1 10 ^3/uL (0-0.2); Basophils % (auto) 0.5 % (0.0-2.0); Eosinophils # (auto) 0 10 ^3/uL (0-0.8); Eosinophils % (auto) 0.2 % (0.0-7.0); Hemoglobin 11.3 g/dL (12.2-16.2); Lymphocytes # (auto) 1.6 10 ^3/uL (0.4-5.4); Lymphocytes % (auto) 15.2 % (10.0-50.0); Mean Corpuscular Hemoglobin 28.1 pg (28.0-32.0); Mean Corpuscular Hgb Conc. 33.3 g/dL (32.0-36.0); Mean Corpuscular Volume 84.6 fL (80.0-100.0); Monocytes # (auto) 0.3 10 ^3/uL (0-1.3); Monocytes % (auto) 2.6 % (0.0-12.0); Neutrophils # (auto) 8.9 10 ^3/uL (1.6-8.6); Neutrophils % (auto) 81.5 % (37.0-80.0); Red Blood Cells 4.02 10^6/uL (4.0-5.20); Red Cell Distribution Width 13.2 % (11.8-14.3); White Blood Cell 10.9 10^3/uL (4.4-10.8)
[2022-01-30 09:40] LABS: Albumin 3.9 g/dL (3.4-5.0); BUN/Creatinine Ratio 11.4; Calcium 9.6 mg/dL (8.5-10.1); Potassium 3.2 mmol/L (3.5-5.1)
[2022-01-30 09:42] LABS: Bilirubin, Total 0.3 mg/dL (0.2-1.0); Total Protein 7.9 g/dL (6.4-8.2)
[2022-01-30] MEDS ORDERED: KETOROLAC TROMETH 30 MG/ML 1ML VIAL IV ONE (09:45)
[2022-01-30] MEDS ORDERED: POTASSIUM EFFERVESENT TAB 25 MEQ PO ONE (11:15)
== END 2022-01-30 11:45 | disposition home or self-care (01) ==
LOC: ER 08:13 → EDBD 08:13 → ER 11:45
DX: R10.11 Right upper quadrant pain (principal); R11.2 Nausea with vomiting, unspecified; E87.6 Hypokalemia; R73.9 Hyperglycemia, unspecified; I25.2 Old myocardial infarction; E78.5 Hyperlipidemia, unspecified; N18.9 Chronic kidney disease, unspecified; Z79.899 Other long term (current) drug therapy; Z79.01 Long term (current) use of anticoagulants
CPT/HCPCS: 36415; 74176; 80053; 83690; 84484; 85025; 93005; 96361; 96374; 96375; 99285; J1885; J2405; J7030

== ENCOUNTER 2022-02-27 09:36 | Inpatient (IN) | payer MEDICAID ==
[~2022-02-27] VITALS: Ht 165.1 cm; Wt 53.6 kg
[2022-02-27] MEDS ORDERED: HYDROmorphone HCL 2 MG/ML VL IM ONE (10:45)
[2022-02-27 11:23] LABS: Basophils # (auto) 0 10 ^3/uL (0-0.2); Basophils % (auto) 0.5 % (0.0-2.0); Eosinophils # (auto) 0 10 ^3/uL (0-0.8); Eosinophils % (auto) 0.1 % (0.0-7.0); Hematocrit 35.2 % (36.0-46.0); Hemoglobin 11.7 g/dL (12.2-16.2); Lymphocytes # (auto) 0.7 10 ^3/uL (0.4-5.4); Lymphocytes % (auto) 8.4 % (10.0-50.0); Mean Corpuscular Hemoglobin 27.9 pg (28.0-32.0); Mean Corpuscular Hgb Conc. 33.3 g/dL (32.0-36.0); Mean Corpuscular Volume 83.9 fL (80.0-100.0); Monocytes # (auto) 0.1 10 ^3/uL (0-1.3); Monocytes % (auto) 1.6 % (0.0-12.0); Neutrophils # (auto) 7.9 10 ^3/uL (1.6-8.6); Neutrophils % (auto) 89.4 % (37.0-80.0); Nucleated Red Blood Cells % 0.1 %; Red Cell Distribution Width 14.1 % (11.8-14.3); White Blood Cell 8.9 10^3/uL (4.4-10.8)
[2022-02-27 11:35] LABS: Albumin 4.1 g/dL (3.4-5.0); Calcium 8.9 mg/dL (8.5-10.1)
[2022-02-27 11:42] LABS: BUN/Creatinine Ratio 9.5; Bilirubin, Total 0.4 mg/dL (0.2-1.0); Total Protein 8.5 g/dL (6.4-8.2)
[2022-02-27] MEDS ORDERED: HYDROmorphone HCL 2 MG/ML VL IV ONE (12:30)
[2022-02-27] MEDS ORDERED: ASPirin 81 mg TAB PO ONE (13:45)
[2022-02-27] MEDS ORDERED: hydrALAZINE HCL 20 MG/ML VL IV ONE (13:45)
[2022-02-27] MEDS ORDERED: NITROGLYCERIN 0.4 MG SL TAB SL PRN (14:30)
[2022-02-27] MEDS ORDERED: ACETAMINOPHEN 325 MG TAB PO PRN (14:30)
[2022-02-27] MEDS ORDERED: DOCUSATE SOD 100 MG CAP PO PRN (14:30)
[2022-02-27] MEDS ORDERED: levETIRAcetam 500 MG TAB PO ONE (14:30)
[2022-02-27] MEDS ORDERED: MORPHINE SULFATE 30 MG PO PRN (14:30)
[2022-02-27] MEDS ORDERED: ONDANSETRON HCL 4 MG/2 ML VIAL IV PRN (14:30)
[2022-02-27] MEDS ORDERED: MORPHINE SULFATE INJECTION 2 MG/ML SYRG IV PRN (14:30)
[2022-02-27] MEDS: SODIUM CHLORIDE 0.9% 1,000 ML IV SCH (16:21)
[2022-02-27] MEDS ORDERED: HYOSCYAMINE SULF 0.125 MG ODT TAB PO PRN (16:30)
[2022-02-27 17:06] VITALS: BP 177/105
[2022-02-27 17:21] VITALS: BP 177/105
[2022-02-27] MEDS: MORPHINE SULFATE 4 MG/ML SYR/VIAL IV PRN ×2 (17:25→21:28)
[2022-02-27] MEDS: HYDROcodone-ACET 5/325MG TAB PO PRN (18:37)
[2022-02-27] MEDS: CEFTRIAXONE SODIUM 2 GM in D5W 5% 50 ML IV SCH (20:07)
[2022-02-27] MEDS: metroNIDAZOLE 500MG/100ML 100 ML IV SCH (21:47)
[2022-02-27] MEDS: levETIRAcetam 500 MG TAB PO SCH (21:48)
[2022-02-27] MEDS: GABAPENTIN 300 MG CAP PO SCH (21:49)
[2022-02-27] MEDS: ATORVASTATIN 20 MG TAB PO SCH (21:49)
[2022-02-27] MEDS: PROMETHAZINE HCL 6.25 MG/5 ML ORAL SYRUP PO SCH (21:58)
[2022-02-27 22:00] VITALS: BP 156/106
[2022-02-27] MEDS: PANTOPRAZOLE 40 MG/10 ML VIAL INJ IV SCH (22:10)
[2022-02-28 05:00] VITALS: BP 168/101
[2022-02-28] MEDS: MORPHINE SULFATE 4 MG/ML SYR/VIAL IV PRN ×4 (05:01→19:51)
[2022-02-28] MEDS: metroNIDAZOLE 500MG/100ML 100 ML IV SCH ×3 (05:51→22:54)
[2022-02-28] MEDS: GABAPENTIN 300 MG CAP PO SCH ×3 (05:51→21:57)
[2022-02-28] MEDS: HYDROcodone-ACET 5/325MG TAB PO PRN ×3 (05:52→21:00)
[2022-02-28] MEDS: SODIUM CHLORIDE 0.9% 1,000 ML IV SCH ×2 (07:10→23:50)
[2022-02-28 09:00] VITALS: BP 143/98
[2022-02-28] MEDS: levETIRAcetam 500 MG TAB PO SCH ×2 (09:33→21:57)
[2022-02-28] MEDS: PANTOPRAZOLE 40 MG/10 ML VIAL INJ IV SCH ×2 (09:33→21:57)
[2022-02-28] MEDS: CLOPIDOGREL BISULFATE 75 MG TAB PO SCH (09:34)
[2022-02-28] MEDS: amLODIPine BESYLATE 5 MG TAB PO SCH (09:34)
[2022-02-28] MEDS: FLUoxetine HCL 20 MG CAP PO SCH (09:34)
[2022-02-28 09:36] LABS: Basophils # (auto) 0.1 10 ^3/uL (0-0.2); Basophils % (auto) 1.1 % (0.0-2.0); Eosinophils # (auto) 0 10 ^3/uL (0-0.8); Hematocrit 34.9 % (36.0-46.0); Hemoglobin 12.2 g/dL (12.2-16.2); Lymphocytes # (auto) 1.9 10 ^3/uL (0.4-5.4); Lymphocytes % (auto) 19.6 % (10.0-50.0); Mean Corpuscular Hemoglobin 28.4 pg (28.0-32.0); Mean Corpuscular Volume 81.2 fL (80.0-100.0); Monocytes # (auto) 0.4 10 ^3/uL (0-1.3); Monocytes % (auto) 4.2 % (0.0-12.0); Neutrophils # (auto) 7.3 10 ^3/uL (1.6-8.6); Neutrophils % (auto) 75.1 % (37.0-80.0); Nucleated Red Blood Cells % 0.1 %; Red Blood Cells 4.29 10^6/uL (4.0-5.20); Red Cell Distribution Width 13.8 % (11.8-14.3); White Blood Cell 9.7 10^3/uL (4.4-10.8)
[2022-02-28] MEDS: PROMETHAZINE HCL 6.25 MG/5 ML ORAL SYRUP PO SCH ×2 (10:00→22:55)
[2022-02-28 10:02] LABS: Calcium 8.8 mg/dL (8.5-10.1); Potassium 3.7 mmol/L (3.5-5.1)
[2022-02-28 10:07] LABS: Albumin 3.7 g/dL (3.4-5.0); BUN/Creatinine Ratio 8.5; Bilirubin, Total 0.6 mg/dL (0.2-1.0); Total Protein 8.2 g/dL (6.4-8.2)
[2022-02-28] MEDS: CEFTRIAXONE SODIUM 2 GM in D5W 5% 50 ML IV SCH (11:30)
[2022-02-28 13:00] VITALS: BP 134/87
[2022-02-28] MEDS ORDERED: GASTROGRAFIN 120 ML SOL ONE (13:10)
[2022-02-28 17:00] VITALS: BP 163/106
[2022-02-28] MEDS: hydrALAZINE HCL 20 MG/ML VL IV PRN (21:16)
[2022-02-28] MEDS: ATORVASTATIN 20 MG TAB PO SCH (21:57)
[2022-02-28 22:00] VITALS: BP 196/122
[2022-03-01] MEDS: MORPHINE SULFATE 4 MG/ML SYR/VIAL IV PRN ×5 (01:27→19:56)
[2022-03-01 05:00] VITALS: BP 175/109
[2022-03-01] MEDS: metroNIDAZOLE 500MG/100ML 100 ML IV SCH ×3 (05:52→22:01)
[2022-03-01] MEDS: GABAPENTIN 300 MG CAP PO SCH ×3 (05:52→22:01)
[2022-03-01] MEDS: hydrALAZINE HCL 20 MG/ML VL IV PRN (05:54)
[2022-03-01 09:00] VITALS: BP 181/101
[2022-03-01] MEDS: PANTOPRAZOLE 40 MG/10 ML VIAL INJ IV SCH ×2 (09:55→22:01)
[2022-03-01] MEDS: levETIRAcetam 500 MG TAB PO SCH ×2 (09:55→22:01)
[2022-03-01] MEDS: FLUoxetine HCL 20 MG CAP PO SCH (09:56)
[2022-03-01] MEDS: amLODIPine BESYLATE 5 MG TAB PO SCH (09:56)
[2022-03-01] MEDS: CLOPIDOGREL BISULFATE 75 MG TAB PO SCH (09:56)
[2022-03-01] MEDS: CEFTRIAXONE SODIUM 2 GM in D5W 5% 50 ML IV SCH (10:00)
[2022-03-01] MEDS: PROMETHAZINE HCL 6.25 MG/5 ML ORAL SYRUP PO SCH ×2 (10:00→22:02)
[2022-03-01 13:00] VITALS: BP 182/113
[2022-03-01] MEDS: HYDROcodone-ACET 5/325MG TAB PO PRN ×2 (13:51→22:02)
[2022-03-01] MEDS: SODIUM CHLORIDE 0.9% 1,000 ML IV SCH ×2 (14:15→23:37)
[2022-03-01] MEDS: METOCLOPRAMIDE HCL 5MG/ml INJ 2ml VIAL IV SCH ×2 (15:42→22:01)
[2022-03-01 16:58] VITALS: BP 127/80
[2022-03-01 22:00] VITALS: BP 159/93
[2022-03-01] MEDS: ATORVASTATIN 20 MG TAB PO SCH (22:01)
[2022-03-02] MEDS: MORPHINE SULFATE 4 MG/ML SYR/VIAL IV PRN ×3 (00:37→13:01)
[2022-03-02] MEDS: HYDROcodone-ACET 5/325MG TAB PO PRN ×2 (04:11→08:34)
[2022-03-02 05:00] VITALS: BP 178/102
[2022-03-02] MEDS: metroNIDAZOLE 500MG/100ML 100 ML IV SCH (05:47)
[2022-03-02] MEDS: GABAPENTIN 300 MG CAP PO SCH ×3 (05:48→21:24)
[2022-03-02] MEDS: hydrALAZINE HCL 20 MG/ML VL IV PRN ×2 (05:48→12:14)
[2022-03-02] MEDS: METOCLOPRAMIDE HCL 5MG/ml INJ 2ml VIAL IV SCH ×3 (05:48→21:23)
[2022-03-02 09:00] VITALS: BP 129/87
[2022-03-02] MEDS: FLUoxetine HCL 20 MG CAP PO SCH (10:26)
[2022-03-02] MEDS: PANTOPRAZOLE 40 MG/10 ML VIAL INJ IV SCH ×2 (10:26→21:23)
[2022-03-02] MEDS: CLOPIDOGREL BISULFATE 75 MG TAB PO SCH (10:26)
[2022-03-02] MEDS: levETIRAcetam 500 MG TAB PO SCH ×2 (10:27→21:23)
[2022-03-02] MEDS: amLODIPine BESYLATE 5 MG TAB PO SCH (10:27)
[2022-03-02] MEDS: PROMETHAZINE HCL 6.25 MG/5 ML ORAL SYRUP PO SCH ×2 (10:28→22:00)
[2022-03-02] MEDS: SODIUM CHLORIDE 0.9% 1,000 ML IV SCH ×2 (10:29→21:24)
[2022-03-02] MEDS ORDERED: DOCUSATE SOD 100 MG CAP PO SCH (12:00)
[2022-03-02 13:00] VITALS: BP 174/111
[2022-03-02] MEDS ORDERED: METOPROLOL TARTRATE 1MG/1ML-5ML VIAL IV PRN (15:00)
[2022-03-02] MEDS: HYDROmorphone HCL 2 MG/ML VL IV PRN ×2 (16:52→21:27)
[2022-03-02 17:00] VITALS: BP 146/99
[2022-03-02] MEDS: ATORVASTATIN 20 MG TAB PO SCH (21:23)
[2022-03-02 22:05] VITALS: BP 131/94
[2022-03-03] MEDS: HYDROmorphone HCL 2 MG/ML VL IV PRN ×3 (00:24→08:33)
[2022-03-03] MEDS: HYDROcodone-ACET 5/325MG TAB PO PRN (02:26)
[2022-03-03 05:21] VITALS: BP 141/90
[2022-03-03] MEDS: GABAPENTIN 300 MG CAP PO SCH ×2 (06:04→13:58)
[2022-03-03] MEDS: METOCLOPRAMIDE HCL 5MG/ml INJ 2ml VIAL IV SCH ×2 (06:04→13:58)
[2022-03-03] MEDS: SODIUM CHLORIDE 0.9% 1,000 ML IV SCH (06:05)
[2022-03-03 08:54] VITALS: BP 130/86
[2022-03-03] MEDS: levETIRAcetam 500 MG TAB PO SCH (09:39)
[2022-03-03] MEDS: CLOPIDOGREL BISULFATE 75 MG TAB PO SCH (09:39)
[2022-03-03] MEDS: PROMETHAZINE HCL 6.25 MG/5 ML ORAL SYRUP PO SCH (09:39)
[2022-03-03] MEDS: PANTOPRAZOLE 40 MG/10 ML VIAL INJ IV SCH (09:39)
[2022-03-03] MEDS: FLUoxetine HCL 20 MG CAP PO SCH (09:39)
[2022-03-03] MEDS: amLODIPine BESYLATE 5 MG TAB PO SCH (09:40)
[2022-03-03 13:00] VITALS: BP 142/87
[2022-03-03 15:34] VITALS: BP 130/86
== END 2022-03-03 16:08 | disposition home or self-care (01) | DRG 254 ==
LOC: EDBD 09:36 → ER 09:36 → TELE-EAST 14:28
PROVIDERS: ADMIT Nurse Practitioner; ATTEND Nurse Practitioner
PROC: 05HA33Z Insertion of Infusion Device into Left Brachial Vein, Percutaneous Approach (ICD-10-PCS; principal; 2022-02-27)
PROC: B54NZZA Ultrasonography of Left Upper Extremity Veins, Guidance (ICD-10-PCS; 2022-02-27)
DX: K59.00 Constipation, unspecified (principal); M32.9 Systemic lupus erythematosus, unspecified; D64.9 Anemia, unspecified; K52.9 Noninfective gastroenteritis and colitis, unspecified; I16.0 Hypertensive urgency; F41.9 Anxiety disorder, unspecified; G40.909 Epilepsy, unspecified, not intractable, without status epilepticus; Z20.822 Contact with and (suspected) exposure to COVID-19; G89.29 Other chronic pain; I10 Essential (primary) hypertension; I25.10 Atherosclerotic heart disease of native coronary artery without angina pectoris; Z96.649 Presence of unspecified artificial hip joint; E78.5 Hyperlipidemia, unspecified; Z79.02 Long term (current) use of antithrombotics/antiplatelets; Z79.891 Long term (current) use of opiate analgesic; Z83.3 Family history of diabetes mellitus; Z86.73 Personal history of transient ischemic attack (TIA), and cerebral infarction without residual deficits; I25.2 Old myocardial infarction; Z87.440 Personal history of urinary (tract) infections; R11.2 Nausea with vomiting, unspecified
CPT/HCPCS: 36415; 70450; 71045; 74176; 74250; 80053; 83690; 84484; 85025; 87081; 93005; 96361; 96372; 96374; 96375; C9113; G0378; J0696; J2405; J3490; J7060

== ENCOUNTER 2022-03-18 00:14 | Emergency (ER) | payer MEDICAID ==
[~2022-03-18] VITALS: Ht 160 cm; Wt 77.1 kg
[2022-03-18 01:18] LABS: Basophils # (auto) 0.1 10 ^3/uL (0-0.2); Eosinophils # (auto) 0.1 10 ^3/uL (0-0.8); Hematocrit 32.5 % (36.0-46.0); Lymphocytes # (auto) 1.6 10 ^3/uL (0.4-5.4); Lymphocytes % (auto) 18.3 % (10.0-50.0); Mean Corpuscular Hemoglobin 27.8 pg (28.0-32.0); Mean Corpuscular Hgb Conc. 33.8 g/dL (32.0-36.0); Mean Corpuscular Volume 82.3 fL (80.0-100.0); Monocytes # (auto) 0.4 10 ^3/uL (0-1.3); Monocytes % (auto) 4.5 % (0.0-12.0); Neutrophils # (auto) 6.7 10 ^3/uL (1.6-8.6); Neutrophils % (auto) 75.2 % (37.0-80.0); Nucleated Red Blood Cells % 0.1 %; Red Blood Cells 3.95 10^6/uL (4.0-5.20); Red Cell Distribution Width 14.3 % (11.8-14.3)
[2022-03-18 01:28] LABS: Albumin 3.6 g/dL (3.4-5.0); BUN/Creatinine Ratio 8.6; Calcium 9.1 mg/dL (8.5-10.1)
[2022-03-18 01:30] LABS: Bilirubin, Total 0.3 mg/dL (0.2-1.0); Total Protein 7.4 g/dL (6.4-8.2)
[2022-03-18] MEDS ORDERED: MORPHINE SULFATE 4 MG/ML SYR/VIAL IV ONE (01:45)
[2022-03-18] MEDS ORDERED: ONDANSETRON HCL 4 MG/2 ML VIAL IV ONE (01:45)
[2022-03-18 01:58] LABS: Potassium 2.8 mmol/L (3.5-5.1)
[2022-03-18] MEDS ORDERED: METOCLOPRAMIDE HCL 5MG/ml INJ 2ml VIAL ONE (02:23)
[2022-03-18] MEDS ORDERED: METOCLOPRAMIDE HCL 5MG/ml INJ 2ml VIAL IV ONE (02:30)
[2022-03-18] MEDS: POTASSIUM CHL 20MEQ/100ML 100 ML IV SCH ×4 (05:20→10:47)
[2022-03-18] MEDS ORDERED: HALOPERIDOL LACTATE 5 MG/ML INJ VIAL IM ONE (06:45)
[2022-03-18] MEDS ORDERED: HYDROmorphone HCL 2 MG/ML VL IV ONE (08:15)
[2022-03-18 09:03] LABS: Urine Bacteria NONE SEEN /hpf (None Seen); Urine Blood 1+ /uL (Negative); Urine Specific Gravity 1.007 (1.001-1.035); Urine WBC 2 /hpf (0 - 5)
[2022-03-18] MEDS ORDERED: cefTRIAXone 1GM/50ML D5W 50 ML IV ONE (11:30)
[2022-03-18] MEDS ORDERED: LABETALOL HCL 5 MG/ML 4ML SYRINGE IV ONE (12:15)
[2022-03-18 12:30] VITALS: BP 157/89
== END 2022-03-18 13:48 | disposition home or self-care (01) ==
LOC: EDBD 00:14 → ER 00:14 → EDUNIT# 00:14 → ER 13:48
DX: E87.6 Hypokalemia (principal); G89.29 Other chronic pain; R10.9 Unspecified abdominal pain; Z20.822 Contact with and (suspected) exposure to COVID-19
CPT/HCPCS: 36415; 80053; 81001; 83690; 85025; 87426; 93005; 96365; 96366; 96368; 96372; 96375; 99285; J0696; J1170; J1630; J2270; J2405; J2765; J3480; J3490

== ENCOUNTER 2022-04-14 02:21 | Inpatient (IN) | payer MEDICAID ==
[~2022-04-14] VITALS: Ht 162.6 cm; Wt 54.1 kg
[2022-04-14 03:20] LABS: Basophils # (auto) 0 10 ^3/uL (0-0.2); Basophils % (auto) 0.3 % (0.0-2.0); Eosinophils # (auto) 0 10 ^3/uL (0-0.8); Hematocrit 34.8 % (36.0-46.0); Hemoglobin 12.1 g/dL (12.2-16.2); Lymphocytes # (auto) 0.9 10 ^3/uL (0.4-5.4); Lymphocytes % (auto) 9.1 % (10.0-50.0); Mean Corpuscular Hemoglobin 28.6 pg (28.0-32.0); Mean Corpuscular Hgb Conc. 34.7 g/dL (32.0-36.0); Mean Corpuscular Volume 82.5 fL (80.0-100.0); Monocytes # (auto) 0.2 10 ^3/uL (0-1.3); Monocytes % (auto) 1.8 % (0.0-12.0); Neutrophils # (auto) 8.9 10 ^3/uL (1.6-8.6); Neutrophils % (auto) 88.8 % (37.0-80.0); Nucleated Red Blood Cells % 0.1 %; Red Blood Cells 4.22 10^6/uL (4.0-5.20)
[2022-04-14 03:39] LABS: Albumin 4.1 g/dL (3.4-5.0); Calcium 9.3 mg/dL (8.5-10.1); Potassium 3.2 mmol/L (3.5-5.1)
[2022-04-14 03:41] LABS: BUN/Creatinine Ratio 8.3
[2022-04-14 03:44] LABS: Bilirubin, Total 0.5 mg/dL (0.2-1.0); Total Protein 8.4 g/dL (6.4-8.2)
[2022-04-14] MEDS ORDERED: IOHEXOL 300 MG/ML 100ML BOTTLE IJ ONE (03:48)
[2022-04-14] MEDS ORDERED: HYDROmorphone HCL 2 MG/ML VL/or syr IV ONE ×2 (04:00→07:00)
[2022-04-14] MEDS ORDERED: POTASSIUM EFFERVESENT TAB 25 MEQ PO ONE (06:15)
[2022-04-14] MEDS ORDERED: ONDANSETRON HCL 4 MG/2 ML VIAL IV ONE (07:00)
[2022-04-14 08:54] LABS: Urine Bacteria NONE SEEN /hpf (None Seen); Urine Blood 1+ /uL (Negative); Urine Specific Gravity 1.043 (1.001-1.035); Urine WBC 17 /hpf (0 - 5)
[2022-04-14] MEDS ORDERED: ACETAMINOPHEN 325 MG TAB PO PRN ×2 (14:30)
[2022-04-14] MEDS ORDERED: NITROGLYCERIN 0.4 MG SL TAB SL PRN (14:30)
[2022-04-14] MEDS ORDERED: MORPHINE SULFATE INJ 2 MG/ml SYRG IV PRN (14:30)
[2022-04-14] MEDS: MORPHINE SULFATE INJ 2 MG/ml SYRG IV PRN ×3 (15:07→22:39)
[2022-04-14] MEDS: SODIUM CHLORIDE 0.9% 1,000 ML IV SCH ×2 (15:07→22:50)
[2022-04-14 17:00] VITALS: BP 174/97
[2022-04-14] MEDS: amLODIPine BESYLATE 5 MG TAB PO SCH (18:23)
[2022-04-14] MEDS: FLUoxetine HCL 20 MG CAP PO SCH (18:23)
[2022-04-14] MEDS: metroNIDAZOLE 500MG/100ML 100 ML IV SCH (21:34)
[2022-04-14] MEDS: levETIRAcetam 500 MG TAB PO SCH (21:34)
[2022-04-14] MEDS: ATORVASTATIN 20 MG TAB PO SCH (21:35)
[2022-04-14 22:00] VITALS: BP 154/95
[2022-04-14] MEDS: ONDANSETRON HCL 4 MG/2 ML VIAL IV PRN (22:50)
[2022-04-15] MEDS: TEMAZEPAM 15 MG CAP PO PRN (00:14)
[2022-04-15] MEDS: MORPHINE SULFATE INJ 2 MG/ml SYRG IV PRN ×4 (04:09→20:13)
[2022-04-15 05:00] VITALS: BP 143/93
[2022-04-15] MEDS: metroNIDAZOLE 500MG/100ML 100 ML IV SCH ×3 (06:06→21:35)
[2022-04-15] MEDS: levoFLOXacin 500MG 100 ML IV SCH (08:39)
[2022-04-15] MEDS: SODIUM CHLORIDE 0.9% 1,000 ML IV SCH ×2 (08:39→15:41)
[2022-04-15] MEDS: levETIRAcetam 500 MG TAB PO SCH ×2 (08:39→21:36)
[2022-04-15] MEDS: amLODIPine BESYLATE 5 MG TAB PO SCH (08:40)
[2022-04-15] MEDS: FLUoxetine HCL 20 MG CAP PO SCH (08:40)
[2022-04-15] MEDS: ONDANSETRON HCL 4 MG/2 ML VIAL IV PRN ×3 (08:40→20:13)
[2022-04-15 09:00] VITALS: BP 163/98
[2022-04-15 12:05] LABS: Basophils # (auto) 0.1 10 ^3/uL (0-0.2); Basophils % (auto) 0.7 % (0.0-2.0); Eosinophils # (auto) 0 10 ^3/uL (0-0.8); Eosinophils % (auto) 0.3 % (0.0-7.0); Hematocrit 35.4 % (36.0-46.0); Hemoglobin 12.1 g/dL (12.2-16.2); Lymphocytes % (auto) 21.5 % (10.0-50.0); Mean Corpuscular Hemoglobin 28.3 pg (28.0-32.0); Mean Corpuscular Hgb Conc. 34.1 g/dL (32.0-36.0); Mean Corpuscular Volume 82.9 fL (80.0-100.0); Monocytes # (auto) 0.3 10 ^3/uL (0-1.3); Monocytes % (auto) 3.7 % (0.0-12.0); Neutrophils # (auto) 6.8 10 ^3/uL (1.6-8.6); Neutrophils % (auto) 73.8 % (37.0-80.0); Nucleated Red Blood Cells % 0.1 %; Red Blood Cells 4.27 10^6/uL (4.0-5.20); White Blood Cell 9.2 10^3/uL (4.4-10.8)
[2022-04-15 12:27] LABS: Alanine Aminotransferase 22 U/L (13-56); Aspartate Aminotransferase 25 U/L (15-37)
[2022-04-15 13:00] VITALS: BP 134/94
[2022-04-15 13:20] LABS: Albumin 3.8 g/dL (3.4-5.0); Alkaline Phosphatase 109 U/L (45-117); Anion Gap 10 (5-15); BUN/Creatinine Ratio 5.9; Bilirubin, Total 0.7 mg/dL (0.2-1.0); Blood Urea Nitrogen 4 mg/dL (7-18); Calcium 8.9 mg/dL (8.5-10.1); Carbon Dioxide 21 mmol/L (21-32); Chloride 111 mmol/L (98-107); GFR African American 114 mL/min; GFR Non-African American 94 mL/min; Glucose 88 mg/dL (74-106); Potassium 3.4 mmol/L (3.5-5.1); Sodium 142 mmol/L (136-145); Total Protein 8.1 g/dL (6.4-8.2)
[2022-04-15 17:00] VITALS: BP 155/95
[2022-04-15] MEDS: ATORVASTATIN 20 MG TAB PO SCH (21:35)
[2022-04-15 22:16] VITALS: BP 159/102
[2022-04-16] MEDS: TEMAZEPAM 15 MG CAP PO PRN (01:45)
[2022-04-16] MEDS: HYDROcodone-ACET 5/325MG TAB PO PRN ×2 (02:09→08:24)
[2022-04-16] MEDS: SODIUM CHLORIDE 0.9% 1,000 ML IV SCH ×3 (02:33→16:30)
[2022-04-16] MEDS: ONDANSETRON HCL 4 MG/2 ML VIAL IV PRN ×4 (04:47→10:50)
[2022-04-16] MEDS: MORPHINE SULFATE INJ 2 MG/ml SYRG IV PRN ×5 (04:47→14:05)
[2022-04-16 05:00] VITALS: BP 166/103
[2022-04-16] MEDS: metroNIDAZOLE 500MG/100ML 100 ML IV SCH ×3 (05:27→21:16)
[2022-04-16] MEDS: levETIRAcetam 500 MG TAB PO SCH ×2 (08:23→21:17)
[2022-04-16] MEDS: amLODIPine BESYLATE 5 MG TAB PO SCH (08:24)
[2022-04-16] MEDS: FLUoxetine HCL 20 MG CAP PO SCH (08:24)
[2022-04-16 09:07] VITALS: BP 167/101
[2022-04-16] MEDS: levoFLOXacin 500MG 100 ML IV SCH (09:50)
[2022-04-16] MEDS: ALPRAZolam 0.5 MG TAB PO PRN (12:36)
[2022-04-16] MEDS: hydrALAZINE HCL 20 MG/ML VL IV PRN ×2 (12:36→21:20)
[2022-04-16 16:57] VITALS: BP 187/79
[2022-04-16] MEDS: HYDROmorphone HCL 2 MG/ML VL/or syr IV PRN ×2 (17:30→21:18)
[2022-04-16] MEDS: ATORVASTATIN 20 MG TAB PO SCH (21:17)
[2022-04-16 22:00] VITALS: BP 166/104
[2022-04-17] VITALS (7 sets, daily range): BP systolic 128–167; BP diastolic 86–109
[2022-04-17] MEDS: SODIUM CHLORIDE 0.9% 1,000 ML IV SCH ×2 (01:51→09:44)
[2022-04-17] MEDS: HYDROmorphone HCL 2 MG/ML VL/or syr IV PRN ×6 (01:53→22:22)
[2022-04-17] MEDS: metroNIDAZOLE 500MG/100ML 100 ML IV SCH ×3 (05:29→22:20)
[2022-04-17] MEDS: hydrALAZINE HCL 20 MG/ML VL IV PRN ×2 (05:31→15:23)
[2022-04-17] MEDS: amLODIPine BESYLATE 5 MG TAB PO SCH (09:39)
[2022-04-17] MEDS: FLUoxetine HCL 20 MG CAP PO SCH (09:39)
[2022-04-17] MEDS: levETIRAcetam 500 MG TAB PO SCH ×2 (09:40→22:20)
[2022-04-17] MEDS: levoFLOXacin 500MG 100 ML IV SCH (09:43)
[2022-04-17] MEDS: ONDANSETRON HCL 4 MG/2 ML VIAL IV PRN ×2 (13:47→18:01)
[2022-04-17] MEDS: ALPRAZolam 0.5 MG TAB PO PRN (16:07)
[2022-04-17] MEDS ORDERED: HYOSCYAMINE SULF 0.125 MG ODT TAB PO PRN (16:30)
[2022-04-17] MEDS: METOCLOPRAMIDE HCL 5MG/ml INJ 2ml VIAL IV SCH ×2 (17:50→22:20)
[2022-04-17 19:11] LABS: Amphetamine Screen, Urine NEGATIVE (NEGATIVE); Barbiturate Scree,Urine NEGATIVE (NEGATIVE); Benzodiazephine Screen, Urine NEGATIVE (NEGATIVE); Cannabinoid Screen, Urine POSITIVE (NEGATIVE); Cocaine Screen, Urine NEGATIVE (NEGATIVE); Opiate Scree,Urine NEGATIVE (NEGATIVE); Phencyclidine Screen, Urine NEGATIVE (NEGATIVE)
[2022-04-17] MEDS: ATORVASTATIN 20 MG TAB PO SCH (22:19)
[2022-04-18] MEDS: SODIUM CHLORIDE 0.9% 1,000 ML IV SCH ×2 (01:00)
[2022-04-18] MEDS: HYDROmorphone HCL 2 MG/ML VL/or syr IV PRN ×4 (02:45→14:45)
[2022-04-18 05:19] VITALS: BP 153/94
[2022-04-18] MEDS: metroNIDAZOLE 500MG/100ML 100 ML IV SCH ×2 (06:42→13:41)
[2022-04-18] MEDS: METOCLOPRAMIDE HCL 5MG/ml INJ 2ml VIAL IV SCH ×2 (06:43→13:43)
[2022-04-18 08:00] VITALS: BP 156/99
[2022-04-18 09:15] LABS: Basophils # (auto) 0 10 ^3/uL (0-0.2); Basophils % (auto) 0.4 % (0.0-2.0); Eosinophils # (auto) 0 10 ^3/uL (0-0.8); Eosinophils % (auto) 0.2 % (0.0-7.0); Hematocrit 33.8 % (36.0-46.0); Hemoglobin 11.7 g/dL (12.2-16.2); Lymphocytes # (auto) 1.9 10 ^3/uL (0.4-5.4); Lymphocytes % (auto) 21.5 % (10.0-50.0); Mean Corpuscular Hemoglobin 28.3 pg (28.0-32.0); Mean Corpuscular Hgb Conc. 34.5 g/dL (32.0-36.0); Mean Corpuscular Volume 81.9 fL (80.0-100.0); Monocytes # (auto) 0.5 10 ^3/uL (0-1.3); Monocytes % (auto) 5.3 % (0.0-12.0); Neutrophils # (auto) 6.5 10 ^3/uL (1.6-8.6); Neutrophils % (auto) 72.6 % (37.0-80.0); Nucleated Red Blood Cells % 0.2 %; Red Blood Cells 4.12 10^6/uL (4.0-5.20)
[2022-04-18 09:47] LABS: Albumin 3.5 g/dL (3.4-5.0); Calcium 8.6 mg/dL (8.5-10.1)
[2022-04-18 09:52] LABS: BUN/Creatinine Ratio 7.5; Bilirubin, Total 0.6 mg/dL (0.2-1.0); Total Protein 7.2 g/dL (6.4-8.2)
[2022-04-18 09:54] LABS: Potassium 2.4 mmol/L (3.5-5.1)
[2022-04-18 09:57] VITALS: BP 156/99
[2022-04-18] MEDS ORDERED: POTASSIUM EFFERVESENT TAB 25 MEQ PO ONE ×2 (10:15→12:15)
[2022-04-18] MEDS: levoFLOXacin 500MG 100 ML IV SCH (10:19)
[2022-04-18] MEDS: levETIRAcetam 500 MG TAB PO SCH (10:19)
[2022-04-18] MEDS: FLUoxetine HCL 20 MG CAP PO SCH (10:20)
[2022-04-18] MEDS: ONDANSETRON HCL 4 MG/2 ML VIAL IV PRN (10:36)
[2022-04-18] MEDS: amLODIPine BESYLATE 5 MG TAB PO SCH (10:43)
[2022-04-18] MEDS: ALPRAZolam 0.5 MG TAB PO PRN (12:32)
[2022-04-18 13:00] VITALS: BP 143/94
[2022-04-18] MEDS ORDERED: HYDR-4902 PO (14:45)
[2022-04-18 16:18] VITALS: BP 143/89
[2022-04-18 17:00] VITALS: BP 156/104
== END 2022-04-18 18:00 | disposition home or self-care (01) | DRG 254 ==
LOC: ER 02:21 → EDBD 02:21 → TELE 14:29 → TELE-CENTR 16:10
PROVIDERS: ADMIT Internal Medicine; ATTEND Internal Medicine
DX: K31.84 Gastroparesis (principal); K81.0 Acute cholecystitis; I69.359 Hemiplegia and hemiparesis following cerebral infarction affecting unspecified side; R19.7 Diarrhea, unspecified; E78.5 Hyperlipidemia, unspecified; E87.6 Hypokalemia; F12.90 Cannabis use, unspecified, uncomplicated; F17.210 Nicotine dependence, cigarettes, uncomplicated; G40.909 Epilepsy, unspecified, not intractable, without status epilepticus; G89.4 Chronic pain syndrome; I25.10 Atherosclerotic heart disease of native coronary artery without angina pectoris; N18.9 Chronic kidney disease, unspecified; Z20.822 Contact with and (suspected) exposure to COVID-19; Z96.649 Presence of unspecified artificial hip joint; D64.9 Anemia, unspecified; I25.2 Old myocardial infarction; Z83.3 Family history of diabetes mellitus
CPT/HCPCS: 36415; 74177; 76705; 78226; 80053; 80307; 81001; 83605; 83690; 84132; 84484; 85025; 93005; 96374; 96375; 96376; G0378; J1956; J2405; J3490

== ENCOUNTER 2023-01-20 02:55 | Inpatient (IN) | payer MEDICAID ==
[~2023-01-20] VITALS: Ht 160 cm; Wt 65.0 kg
[~2023-01-20 02:55] MED LIST changes: +AML5T PO; -AMLO-489 PO; -HYDR-531 PO; +HYDR25TA87 PO; -MORP30TA PO; -PROM25TA5 PO
[2023-01-20] MEDS ORDERED: ONDANSETRON HCL 4 MG/2 ML VIAL IV ONE (04:00)
[2023-01-20] MEDS ORDERED: ONDANSETRON ODT 4 MG TAB PO ONE (04:45)
[2023-01-20] MEDS ORDERED: MORPHINE SULFATE 4 MG/ML SYR/VIAL IM ONE (05:00)
[2023-01-20] MEDS ORDERED: cloNIDine HCL 0.1 MG TAB PO ONE (06:00)
[2023-01-20 06:57] LABS: Basophils # (auto) 0.1 10 ^3/uL (0-0.2); Basophils % (auto) 0.6 % (0.0-2.0); Eosinophils # (auto) 0 10 ^3/uL (0-0.8); Hematocrit 34.8 % (36.0-46.0); Hemoglobin 12.2 g/dL (12.2-16.2); Lymphocytes # (auto) 0.7 10 ^3/uL (0.4-5.4); Lymphocytes % (auto) 6.2 % (10.0-50.0); Mean Corpuscular Hemoglobin 30.7 pg (28.0-32.0); Mean Corpuscular Hgb Conc. 34.9 g/dL (32.0-36.0); Mean Corpuscular Volume 87.8 fL (80.0-100.0); Monocytes # (auto) 0.3 10 ^3/uL (0-1.3); Monocytes % (auto) 2.4 % (0.0-12.0); Neutrophils # (auto) 10.3 10 ^3/uL (1.6-8.6); Neutrophils % (auto) 90.8 % (37.0-80.0); Nucleated Red Blood Cells % 0.1 %; Red Blood Cells 3.96 10^6/uL (4.0-5.20); Red Cell Distribution Width 14.3 % (11.8-14.3); White Blood Cell 11.3 10^3/uL (4.4-10.8)
[2023-01-20] MEDS ORDERED: hydrALAZINE HCL 20 MG/ML VL IV ONE ×2 (07:30→09:45)
[2023-01-20 07:31] LABS: Bilirubin, Total 0.4 mg/dL (0.2-1.0); Total Protein 9.1 g/dL (6.4-8.2)
[2023-01-20 07:58] LABS: Albumin 4.1 g/dL (3.4-5.0); BUN/Creatinine Ratio 9.7; Calcium 9.2 mg/dL (8.5-10.1)
[2023-01-20 08:00] LABS: Potassium 2.9 mmol/L (3.5-5.1)
[2023-01-20] MEDS: POTASSIUM CHL 20MEQ/100ML 100 ML IV SCH ×2 (10:22→14:19)
[2023-01-20] MEDS ORDERED: NITROGLYCERIN 0.4 MG SL TAB SL PRN (13:45)
[2023-01-20] MEDS: MORPHINE SULFATE INJ 2 MG/ml SYRG IV PRN ×2 (17:35→21:05)
[2023-01-20] MEDS: POTASSIUM CHL 20 Meq TABLET PO SCH (21:42)
[2023-01-20] MEDS: HYDROcodone-ACET 5/325MG TAB PO PRN (22:41)
[2023-01-21] MEDS: MORPHINE SULFATE INJ 2 MG/ml SYRG IV PRN ×4 (02:27→20:44)
[2023-01-21 06:14] LABS: Basophils # (auto) 0 10 ^3/uL (0-0.2); Basophils % (auto) 0.5 % (0.0-2.0); Eosinophils # (auto) 0 10 ^3/uL (0-0.8); Eosinophils % (auto) 0.3 % (0.0-7.0); Hematocrit 32.3 % (36.0-46.0); Hemoglobin 11.1 g/dL (12.2-16.2); Lymphocytes # (auto) 2.8 10 ^3/uL (0.4-5.4); Lymphocytes % (auto) 30.3 % (10.0-50.0); Mean Corpuscular Hemoglobin 31.2 pg (28.0-32.0); Mean Corpuscular Hgb Conc. 34.4 g/dL (32.0-36.0); Mean Corpuscular Volume 90.7 fL (80.0-100.0); Monocytes # (auto) 0.5 10 ^3/uL (0-1.3); Monocytes % (auto) 4.9 % (0.0-12.0); Neutrophils # (auto) 5.9 10 ^3/uL (1.6-8.6); Nucleated Red Blood Cells % 0.1 %; Red Blood Cells 3.56 10^6/uL (4.0-5.20); Red Cell Distribution Width 13.9 % (11.8-14.3); White Blood Cell 9.2 10^3/uL (4.4-10.8)
[2023-01-21 06:25] LABS: Albumin 3.7 g/dL (3.4-5.0); BUN/Creatinine Ratio 18.7; Calcium 9.1 mg/dL (8.5-10.1); Potassium 4.8 mmol/L (3.5-5.1)
[2023-01-21 06:27] LABS: Bilirubin, Total 0.5 mg/dL (0.2-1.0); Total Protein 7.5 g/dL (6.4-8.2)
[2023-01-21 07:13] LABS: Urine Bacteria MANY /hpf (None Seen); Urine Blood Negative /uL (Negative); Urine Mucus FEW (None Seen); Urine Specific Gravity 1.013 (1.001-1.035); Urine WBC 82 /hpf (0 - 5); Urine WBC Clumps PRESENT /hpf (None Seen)
[2023-01-21] MEDS ORDERED: LORazepam 2MG/ML-1ML VIAL IV ONE (08:00)
[2023-01-21] MEDS: POTASSIUM CHL 20 Meq TABLET PO SCH ×2 (10:37→21:37)
[2023-01-21] MEDS ORDERED: LABETALOL HCL 5 MG/ML 4ML SYRINGE IV PRN (11:30)
[2023-01-21] MEDS: hydrALAZINE HCL 20 MG/ML VL IV PRN ×2 (11:32→18:16)
[2023-01-21] MEDS: HYDROcodone-ACET 5/325MG TAB PO PRN ×3 (13:52→23:09)
[2023-01-21] MEDS: PIPERACILLIN-TAZOB 3.375GM 100 ML IV SCH ×2 (15:15→21:44)
[2023-01-21] MEDS: GABAPENTIN 300 MG CAP PO SCH ×2 (15:15→21:37)
[2023-01-21 18:02] VITALS: BP_SYST 178; BP_DIAS 100; BP_DIAS 97
[2023-01-21] MEDS: hydrALAZINE HCL 25 MG TAB PO SCH (21:37)
[2023-01-21] MEDS: ATORVASTATIN 20 MG TAB PO SCH (21:37)
[2023-01-21] MEDS: traZODone HCL 50 MG TAB PO SCH (21:37)
[2023-01-21] MEDS: ONDANSETRON HCL 4 MG/2 ML VIAL IV PRN (21:37)
[2023-01-21] MEDS: levETIRAcetam 500 MG TAB PO SCH (21:37)
[2023-01-21 22:05] VITALS: BP 188/120
[2023-01-22] MEDS: HYDROmorphone HCL 2 MG/ML VL/or syr IV PRN ×5 (00:08→19:59)
[2023-01-22] MEDS: HYDROcodone-ACET 10/325MG TAB PO PRN ×2 (02:30→15:26)
[2023-01-22] MEDS: PIPERACILLIN-TAZOB 3.375GM 100 ML IV SCH ×3 (04:00→21:45)
[2023-01-22 05:28] VITALS: BP 131/93
[2023-01-22] MEDS: GABAPENTIN 300 MG CAP PO SCH ×2 (06:00→14:12)
[2023-01-22 06:48] LABS: Basophils # (auto) 0 10 ^3/uL (0-0.2); Basophils % (auto) 0.4 % (0.0-2.0); Eosinophils # (auto) 0 10 ^3/uL (0-0.8); Hematocrit 34.6 % (36.0-46.0); Lymphocytes # (auto) 1.2 10 ^3/uL (0.4-5.4); Lymphocytes % (auto) 12.7 % (10.0-50.0); Mean Corpuscular Hgb Conc. 34.7 g/dL (32.0-36.0); Mean Corpuscular Volume 89.3 fL (80.0-100.0); Monocytes # (auto) 0.2 10 ^3/uL (0-1.3); Monocytes % (auto) 1.8 % (0.0-12.0); Neutrophils # (auto) 7.9 10 ^3/uL (1.6-8.6); Neutrophils % (auto) 85.1 % (37.0-80.0); Nucleated Red Blood Cells % 0.1 %; Red Blood Cells 3.87 10^6/uL (4.0-5.20); Red Cell Distribution Width 13.9 % (11.8-14.3); White Blood Cell 9.3 10^3/uL (4.4-10.8)
[2023-01-22 06:52] LABS: Albumin 4.2 g/dL (3.4-5.0); BUN/Creatinine Ratio 16.5; Calcium 9.8 mg/dL (8.5-10.1); Potassium 4.5 mmol/L (3.5-5.1)
[2023-01-22 06:55] LABS: Bilirubin, Total 0.5 mg/dL (0.2-1.0)
[2023-01-22 08:43] VITALS: BP 147/89
[2023-01-22] MEDS: PANTOPRAZOLE 40 MG/10 ML VIAL INJ IV SCH (08:48)
[2023-01-22] MEDS: levETIRAcetam 500 MG TAB PO SCH ×2 (08:48→21:46)
[2023-01-22] MEDS: POTASSIUM CHL 20 Meq TABLET PO SCH ×2 (08:48→21:46)
[2023-01-22] MEDS: FLUoxetine HCL 20 MG CAP PO SCH (08:49)
[2023-01-22] MEDS: amLODIPine BESYLATE 5 MG TAB PO SCH (08:49)
[2023-01-22] MEDS: CLOPIDOGREL BISULFATE 75 MG TAB PO SCH (08:49)
[2023-01-22] MEDS: hydrALAZINE HCL 25 MG TAB PO SCH ×2 (08:52→21:46)
[2023-01-22] MEDS: ONDANSETRON HCL 4 MG/2 ML VIAL IV PRN ×2 (10:07→14:09)
[2023-01-22] MEDS: MORPHINE SULFATE INJ 2 MG/ml SYRG IV PRN (10:08)
[2023-01-22 13:00] VITALS: BP_DIAS 165
[2023-01-22] MEDS: hydrALAZINE HCL 20 MG/ML VL IV PRN (14:09)
[2023-01-22 17:16] VITALS: BP 159/96
[2023-01-22 17:30] VITALS: BP_SYST 140; BP_SYST 96; BP_DIAS 70
[2023-01-22] MEDS: SUCRALFATE 1 GM/10 ML ORAL SUSP PO SCH (21:46)
[2023-01-22] MEDS: ATORVASTATIN 20 MG TAB PO SCH (21:46)
[2023-01-22] MEDS: GABAPENTIN 100 MG CAP PO SCH (21:46)
[2023-01-22] MEDS: traZODone HCL 50 MG TAB PO SCH (21:46)
[2023-01-22 22:00] VITALS: BP 133/95
[2023-01-23] MEDS: HYDROmorphone HCL 2 MG/ML VL/or syr IV PRN ×6 (00:05→19:53)
[2023-01-23] MEDS: PIPERACILLIN-TAZOB 3.375GM 100 ML IV SCH ×3 (04:00→22:23)
[2023-01-23 05:01] VITALS: BP 107/79
[2023-01-23] MEDS: HYDROcodone-ACET 10/325MG TAB PO PRN ×2 (05:13→22:48)
[2023-01-23] MEDS: SUCRALFATE 1 GM/10 ML ORAL SUSP PO SCH ×4 (06:03→22:24)
[2023-01-23] MEDS: GABAPENTIN 100 MG CAP PO SCH ×3 (06:23→22:25)
[2023-01-23] MEDS: FLUoxetine HCL 20 MG CAP PO SCH (08:41)
[2023-01-23] MEDS: levETIRAcetam 500 MG TAB PO SCH ×2 (08:41→22:24)
[2023-01-23] MEDS: amLODIPine BESYLATE 5 MG TAB PO SCH (08:42)
[2023-01-23] MEDS: PANTOPRAZOLE 40 MG/10 ML VIAL INJ IV SCH (08:43)
[2023-01-23] MEDS: POTASSIUM CHL 20 Meq TABLET PO SCH ×2 (08:48→22:25)
[2023-01-23 09:00] VITALS: BP 123/76
[2023-01-23 09:15] LABS: INR 1.03 (0.9-1.15); Partial Thromboplastin Time 24.8 sec (24.6-33.4)
[2023-01-23] MEDS: CLOPIDOGREL BISULFATE 75 MG TAB PO SCH (10:00)
[2023-01-23 12:32] VITALS: BP 139/89
[2023-01-23] MEDS ORDERED: LIDOCAINE VISCOUS 2% 15ML UD ONE (12:47)
[2023-01-23] MEDS: hydrALAZINE HCL 25 MG TAB PO SCH ×2 (13:09→22:49)
[2023-01-23] MEDS ORDERED: MIDAZOLAM HCL 2MG/2ML 2ml VIAL (1mg/ml) ONE (15:57)
[2023-01-23] MEDS ORDERED: fentaNYL CITRATE 100 MCG/2 ML VL ONE (15:57)
[2023-01-23] MEDS ORDERED: PROPOFOL 10 MG/ML 20 ML IV ONE (15:59)
[2023-01-23] MEDS ORDERED: GLYCOPYRROLATE 0.2 MG/ML 1ML VIAL ONE (15:59)
[2023-01-23] MEDS ORDERED: ONDANSETRON HCL 4 MG/2 ML VIAL ONE (15:59)
[2023-01-23] MEDS ORDERED: LABETALOL HCL 5 MG/ML 4ML SYRINGE IV PRN (16:45)
[2023-01-23] MEDS ORDERED: HYDROmorphone HCL 2 MG/ML VL/or syr IV PRN (16:45)
[2023-01-23] MEDS: hydrALAZINE HCL 20 MG/ML VL IV PRN (17:52)
[2023-01-23 17:55] VITALS: BP 176/116
[2023-01-23] MEDS: MORPHINE SULFATE INJ 2 MG/ml SYRG IV PRN (18:15)
[2023-01-23] MEDS ORDERED: METOPROLOL TARTRATE 50 MG TAB PO ONE (18:30)
[2023-01-23 22:00] VITALS: BP 109/80
[2023-01-23] MEDS: traZODone HCL 50 MG TAB PO SCH (22:24)
[2023-01-23] MEDS: ATORVASTATIN 20 MG TAB PO SCH (22:25)
[2023-01-23] MEDS: METOPROLOL TARTRATE 50 MG TAB PO SCH (22:48)
[2023-01-24] MEDS: HYDROmorphone HCL 2 MG/ML VL/or syr IV PRN ×6 (01:29→21:57)
[2023-01-24 05:00] VITALS: BP 140/95
[2023-01-24] MEDS: GABAPENTIN 100 MG CAP PO SCH ×3 (05:37→22:43)
[2023-01-24] MEDS: PIPERACILLIN-TAZOB 3.375GM 100 ML IV SCH ×3 (05:37→22:39)
[2023-01-24] MEDS: SUCRALFATE 1 GM/10 ML ORAL SUSP PO SCH ×4 (05:37→22:40)
[2023-01-24] MEDS ORDERED: SUCCINYLCHOLINE CHLORIDE 20 MG/ML 10ML VIAL IV ONE (07:19)
[2023-01-24 09:00] VITALS: BP 114/77
[2023-01-24] MEDS: POTASSIUM CHL 20 Meq TABLET PO SCH ×2 (10:29→22:43)
[2023-01-24] MEDS: amLODIPine BESYLATE 5 MG TAB PO SCH (10:30)
[2023-01-24] MEDS: levETIRAcetam 500 MG TAB PO SCH ×2 (10:35→22:42)
[2023-01-24] MEDS: hydrALAZINE HCL 25 MG TAB PO SCH ×2 (10:36→22:40)
[2023-01-24] MEDS: CLOPIDOGREL BISULFATE 75 MG TAB PO SCH (10:37)
[2023-01-24] MEDS: METOPROLOL TARTRATE 50 MG TAB PO SCH ×2 (10:38→22:43)
[2023-01-24] MEDS: FLUoxetine HCL 20 MG CAP PO SCH (10:38)
[2023-01-24] MEDS: PANTOPRAZOLE 40 MG/10 ML VIAL INJ IV SCH (10:38)
[2023-01-24] MEDS: DOCUSATE SOD 100 MG CAP PO SCH (10:38)
[2023-01-24 10:43] LABS: Basophils # (auto) 0.1 10 ^3/uL (0-0.2); Basophils % (auto) 0.6 % (0.0-2.0); Eosinophils # (auto) 0 10 ^3/uL (0-0.8); Hematocrit 37.7 % (36.0-46.0); Hemoglobin 12.6 g/dL (12.2-16.2); Lymphocytes # (auto) 1.8 10 ^3/uL (0.4-5.4); Lymphocytes % (auto) 16.9 % (10.0-50.0); Mean Corpuscular Hgb Conc. 33.3 g/dL (32.0-36.0); Mean Corpuscular Volume 90.1 fL (80.0-100.0); Monocytes # (auto) 0.4 10 ^3/uL (0-1.3); Monocytes % (auto) 3.5 % (0.0-12.0); Neutrophils # (auto) 8.3 10 ^3/uL (1.6-8.6); Nucleated Red Blood Cells % 0.2 %; Red Blood Cells 4.18 10^6/uL (4.0-5.20); White Blood Cell 10.6 10^3/uL (4.4-10.8)
[2023-01-24 11:05] LABS: BUN/Creatinine Ratio 18.7; Calcium 9.1 mg/dL (8.5-10.1); Magnesium 2.4 mg/dL (1.6-2.6); Phosphorus 3.4 mg/dL (2.5-4.90); Potassium 4.5 mmol/L (3.5-5.1)
[2023-01-24 13:00] VITALS: BP 148/84
[2023-01-24 17:00] VITALS: BP 135/78
[2023-01-24 21:47] VITALS: BP 155/107
[2023-01-24] MEDS: traZODone HCL 50 MG TAB PO SCH (22:42)
[2023-01-24] MEDS: ATORVASTATIN 20 MG TAB PO SCH (22:43)
[2023-01-25] MEDS: HYDROmorphone HCL 2 MG/ML VL/or syr IV PRN ×6 (02:17→21:28)
[2023-01-25 04:48] VITALS: BP 88/56
[2023-01-25] MEDS: SUCRALFATE 1 GM/10 ML ORAL SUSP PO SCH ×4 (05:34→22:50)
[2023-01-25] MEDS: GABAPENTIN 100 MG CAP PO SCH ×4 (05:34→22:52)
[2023-01-25] MEDS: PIPERACILLIN-TAZOB 3.375GM 100 ML IV SCH ×4 (05:35→22:49)
[2023-01-25 09:00] VITALS: BP 121/80
[2023-01-25] MEDS: PANTOPRAZOLE 40 MG/10 ML VIAL INJ IV SCH (09:40)
[2023-01-25] MEDS: FLUoxetine HCL 20 MG CAP PO SCH (09:43)
[2023-01-25] MEDS: CLOPIDOGREL BISULFATE 75 MG TAB PO SCH (09:43)
[2023-01-25] MEDS: hydrALAZINE HCL 25 MG TAB PO SCH ×2 (09:44→22:50)
[2023-01-25] MEDS: DOCUSATE SOD 100 MG CAP PO SCH (09:44)
[2023-01-25] MEDS: amLODIPine BESYLATE 5 MG TAB PO SCH (09:45)
[2023-01-25] MEDS: levETIRAcetam 500 MG TAB PO SCH ×2 (09:45→22:50)
[2023-01-25] MEDS: METOPROLOL TARTRATE 50 MG TAB PO SCH ×2 (09:46→22:51)
[2023-01-25] MEDS: POTASSIUM CHL 20 Meq TABLET PO SCH ×2 (09:47→22:51)
[2023-01-25 12:50] VITALS: BP_SYST 121; BP_SYST 56; BP_DIAS 80; BP_DIAS 91
[2023-01-25 17:06] VITALS: BP 112/71
[2023-01-25 22:00] VITALS: BP 110/67
[2023-01-25] MEDS: traZODone HCL 50 MG TAB PO SCH (22:50)
[2023-01-25] MEDS: ATORVASTATIN 20 MG TAB PO SCH (22:51)
[2023-01-26] MEDS: HYDROmorphone HCL 2 MG/ML VL/or syr IV PRN ×5 (01:48→21:29)
[2023-01-26 05:00] VITALS: BP 108/70
[2023-01-26] MEDS: GABAPENTIN 100 MG CAP PO SCH ×3 (05:59→21:26)
[2023-01-26] MEDS: PIPERACILLIN-TAZOB 3.375GM 100 ML IV SCH ×3 (05:59→21:41)
[2023-01-26] MEDS: SUCRALFATE 1 GM/10 ML ORAL SUSP PO SCH ×4 (06:00→21:25)
[2023-01-26 09:00] VITALS: BP 105/68
[2023-01-26] MEDS: hydrALAZINE HCL 25 MG TAB PO SCH ×2 (10:00→22:20)
[2023-01-26] MEDS: METOPROLOL TARTRATE 50 MG TAB PO SCH ×2 (10:00→21:29)
[2023-01-26] MEDS: levETIRAcetam 500 MG TAB PO SCH ×2 (10:58→21:27)
[2023-01-26] MEDS: CLOPIDOGREL BISULFATE 75 MG TAB PO SCH (10:58)
[2023-01-26] MEDS: FLUoxetine HCL 20 MG CAP PO SCH (10:58)
[2023-01-26] MEDS: POTASSIUM CHL 20 Meq TABLET PO SCH ×2 (10:59→21:27)
[2023-01-26] MEDS: amLODIPine BESYLATE 5 MG TAB PO SCH (10:59)
[2023-01-26] MEDS: HYDROcodone-ACET 10/325MG TAB PO PRN (10:59)
[2023-01-26] MEDS: PANTOPRAZOLE 40 MG/10 ML VIAL INJ IV SCH (11:00)
[2023-01-26 13:00] VITALS: BP 155/105
[2023-01-26 16:56] VITALS: BP 109/77
[2023-01-26] MEDS: ATORVASTATIN 20 MG TAB PO SCH (21:26)
[2023-01-26] MEDS: traZODone HCL 50 MG TAB PO SCH (21:26)
[2023-01-26 22:58] VITALS: BP 114/82
[2023-01-27] MEDS: HYDROmorphone HCL 2 MG/ML VL/or syr IV PRN ×6 (01:48→22:18)
[2023-01-27 05:02] VITALS: BP 104/66
[2023-01-27] MEDS: PIPERACILLIN-TAZOB 3.375GM 100 ML IV SCH ×3 (05:20→22:17)
[2023-01-27] MEDS: SUCRALFATE 1 GM/10 ML ORAL SUSP PO SCH ×4 (06:51→22:19)
[2023-01-27] MEDS: GABAPENTIN 100 MG CAP PO SCH ×3 (06:52→22:20)
[2023-01-27] MEDS: CLOPIDOGREL BISULFATE 75 MG TAB PO SCH (08:43)
[2023-01-27] MEDS: PANTOPRAZOLE 40 MG/10 ML VIAL INJ IV SCH (08:43)
[2023-01-27] MEDS: levETIRAcetam 500 MG TAB PO SCH ×2 (08:43→22:18)
[2023-01-27] MEDS: POTASSIUM CHL 20 Meq TABLET PO SCH ×2 (08:44→22:19)
[2023-01-27] MEDS: FLUoxetine HCL 20 MG CAP PO SCH (08:45)
[2023-01-27] MEDS: HYDROcodone-ACET 10/325MG TAB PO PRN (08:45)
[2023-01-27] MEDS: hydrALAZINE HCL 25 MG TAB PO SCH ×2 (08:51→22:00)
[2023-01-27] MEDS: amLODIPine BESYLATE 5 MG TAB PO SCH (08:52)
[2023-01-27] MEDS: METOPROLOL TARTRATE 50 MG TAB PO SCH ×2 (08:52→22:20)
[2023-01-27 09:00] VITALS: BP 95/59
[2023-01-27] MEDS: DOCUSATE SOD 100 MG CAP PO SCH (11:45)
[2023-01-27] MEDS ORDERED: SUCR1TAB22 OR (11:49)
[2023-01-27] MEDS ORDERED: PANT40TA2 PO (11:49)
[2023-01-27 13:47] VITALS: BP 107/70
[2023-01-27 17:00] VITALS: BP 111/70
[2023-01-27 22:00] VITALS: BP_SYST 110; BP_SYST 119; BP_DIAS 66; BP_DIAS 78
[2023-01-27] MEDS: traZODone HCL 50 MG TAB PO SCH (22:19)
[2023-01-27] MEDS: ATORVASTATIN 20 MG TAB PO SCH (22:20)
[2023-01-28] MEDS: HYDROmorphone HCL 2 MG/ML VL/or syr IV PRN (03:31)
[2023-01-28 05:00] VITALS: BP 110/63
[2023-01-28] MEDS: GABAPENTIN 100 MG CAP PO SCH ×2 (06:02→14:00)
[2023-01-28] MEDS: PIPERACILLIN-TAZOB 3.375GM 100 ML IV SCH ×2 (06:02→14:00)
[2023-01-28] MEDS: SUCRALFATE 1 GM/10 ML ORAL SUSP PO SCH ×2 (06:03→12:19)
[2023-01-28] MEDS: POTASSIUM CHL 20 Meq TABLET PO SCH (08:46)
[2023-01-28] MEDS: PANTOPRAZOLE 40 MG/10 ML VIAL INJ IV SCH (08:46)
[2023-01-28] MEDS: FLUoxetine HCL 20 MG CAP PO SCH (08:47)
[2023-01-28] MEDS: CLOPIDOGREL BISULFATE 75 MG TAB PO SCH (08:47)
[2023-01-28] MEDS: levETIRAcetam 500 MG TAB PO SCH (08:47)
[2023-01-28] MEDS: amLODIPine BESYLATE 5 MG TAB PO SCH (08:49)
[2023-01-28] MEDS: HYDROcodone-ACET 10/325MG TAB PO PRN (08:49)
[2023-01-28 09:00] VITALS: BP 110/80
[2023-01-28] MEDS: METOPROLOL TARTRATE 50 MG TAB PO SCH (10:00)
[2023-01-28] MEDS: hydrALAZINE HCL 25 MG TAB PO SCH (10:00)
[2023-01-28] MEDS ORDERED: DIPH2.5T73 PO ×4 (10:25→10:32)
[2023-01-28] MEDS ORDERED: DIPHENOXYLATE W/ATROPINE 2.5 MG TAB PO PRN (10:30)
[2023-01-28 12:21] VITALS: BP 105/68
[2023-01-28 12:31] VITALS: BP 105/68
== END 2023-01-28 14:16 | disposition home health service (06) | DRG 241 ==
LOC: EDBD 02:55 → ER 02:55 → TELE 13:33 → TELE-WESTW 01-21 17:44
PROVIDERS: ADMIT Internal Medicine; ATTEND Internal Medicine
PROC: 06HM33Z Insertion of Infusion Device into Right Femoral Vein, Percutaneous Approach (ICD-10-PCS; 2023-01-20)
PROC: 0DB68ZX Excision of Stomach, Via Natural or Artificial Opening Endoscopic, Diagnostic (ICD-10-PCS; 2023-01-23)
PROC: 0DB98ZX Excision of Duodenum, Via Natural or Artificial Opening Endoscopic, Diagnostic (ICD-10-PCS; principal; 2023-01-23 15:57)
DX: K29.70 Gastritis, unspecified, without bleeding (principal); K83.8 Other specified diseases of biliary tract; K22.10 Ulcer of esophagus without bleeding; E87.6 Hypokalemia; K44.9 Diaphragmatic hernia without obstruction or gangrene; R47.01 Aphasia; I16.1 Hypertensive emergency; G40.909 Epilepsy, unspecified, not intractable, without status epilepticus; F17.210 Nicotine dependence, cigarettes, uncomplicated; Z20.822 Contact with and (suspected) exposure to COVID-19; I10 Essential (primary) hypertension; N30.00 Acute cystitis without hematuria; F32.A Depression, unspecified; F41.9 Anxiety disorder, unspecified; G89.29 Other chronic pain; R11.15 Cyclical vomiting syndrome unrelated to migraine; Z83.3 Family history of diabetes mellitus; Z86.73 Personal history of transient ischemic attack (TIA), and cerebral infarction without residual deficits
CPT/HCPCS: 36415; 36556; 70450; 74018; 74176; 80048; 80053; 81001; 83605; 83690; 83735; 84100; 84484; 85025; 85610; 85730; 86850; 86900; 86901; 87426; 93005; 96372; 96374; 96375; 99291; C9113; G0378; J0330; J2250; J2405; J2543; J2704; J3480; Q0162

== ENCOUNTER 2023-05-04 19:05 | Emergency (ER) | payer MEDICAID ==
[~2023-05-04] VITALS: Ht 167.6 cm; Wt 63.5 kg
[~2023-05-04 19:05] MED LIST changes: +DIPH2.5T73 PO; +GABA-1250 PO; -GABA300C10 PO; +PANT40TA2 PO; +SUCR1TAB22 OR
[2023-05-04] MEDS ORDERED: HYDROcodone-ACET 5/325MG TAB PO ONE (20:15)
[2023-05-04] MEDS ORDERED: ONDANSETRON ODT 4 MG TAB PO ONE (20:15)
[2023-05-04 20:26] LABS: Basophils # (auto) 0 10 ^3/uL (0-0.2); Basophils % (auto) 0.7 % (0.0-2.0); Eosinophils # (auto) 0.1 10 ^3/uL (0-0.8); Hematocrit 32.9 % (36.0-46.0); Hemoglobin 11.1 g/dL (12.2-16.2); Lymphocytes # (auto) 3.4 10 ^3/uL (0.4-5.4); Lymphocytes % (auto) 45.8 % (10.0-50.0); Mean Corpuscular Hgb Conc. 33.6 g/dL (32.0-36.0); Mean Corpuscular Volume 89.2 fL (80.0-100.0); Monocytes # (auto) 0.6 10 ^3/uL (0-1.3); Monocytes % (auto) 8.3 % (0.0-12.0); Neutrophils # (auto) 3.2 10 ^3/uL (1.6-8.6); Neutrophils % (auto) 44.2 % (37.0-80.0); Nucleated Red Blood Cells % 0.3 %; Red Blood Cells 3.69 10^6/uL (4.0-5.20); White Blood Cell 7.3 10^3/uL (4.4-10.8)
[2023-05-04 20:35] LABS: Albumin 3.2 g/dL (3.4-5.0); Calcium 9.3 mg/dL (8.5-10.1); Magnesium 2.4 mg/dL (1.6-2.6); Potassium 4.5 mmol/L (3.5-5.1)
[2023-05-04 20:37] LABS: BUN/Creatinine Ratio 37.3 (10.0-20.0)
[2023-05-04 20:40] LABS: Bilirubin, Total 0.2 mg/dL (0.2-1.0); INR 1.74 (0.9-1.15); Partial Thromboplastin Time < 20.0 sec (24.6-33.4); Total Protein 7.2 g/dL (6.4-8.2)
[2023-05-05] MEDS ORDERED: KETOROLAC TROMETH 30 MG/ML 1ML VIAL IM ONE (02:00)
[2023-05-05] MEDS ORDERED: MORPHINE SULFATE INJ 2 MG/ml SYRG IM ONE (02:00)
[2023-05-05 06:00] VITALS: BP 137/77
== END 2023-05-05 03:00 | disposition home or self-care (01) ==
LOC: EDUNIT# 19:05 → EDBD 19:05 → ER 19:05
DX: D64.9 Anemia, unspecified (principal); M32.9 Systemic lupus erythematosus, unspecified; R07.89 Other chest pain; F17.210 Nicotine dependence, cigarettes, uncomplicated; F12.10 Cannabis abuse, uncomplicated; N18.9 Chronic kidney disease, unspecified; F41.9 Anxiety disorder, unspecified; F32.9 Major depressive disorder, single episode, unspecified; E78.5 Hyperlipidemia, unspecified; I25.2 Old myocardial infarction; E78.00 Pure hypercholesterolemia, unspecified; Z86.73 Personal history of transient ischemic attack (TIA), and cerebral infarction without residual deficits; Z87.440 Personal history of urinary (tract) infections
CPT/HCPCS: 36415; 71045; 80053; 83735; 83880; 84484; 85025; 85610; 85730; 93005; 96372; 99285; J1885; J2270; Q0162